=== PATIENT | female | born 1980 | race Caucasian/White ===

== ENCOUNTER 2024-02-04 19:26 | Emergency (ER) | payer SELFPAY ==
[2024-02-04 19:27] VITALS: BP 146/98; PULSE 109; RESP 15; TEMP 35.6; O2SAT 98
== END 2024-02-04 19:47 | disposition left against medical advice (07) ==
LOC: ER 19:43
PROVIDERS: Emergency Provider Emergency Medicine
DX: Z53.21 Procedure and treatment not carried out due to patient leaving prior to being seen by health care provider (principal)

== ENCOUNTER 2024-02-05 20:36 | Outpatient (REF) | payer MEDICARE, SELFPAY | END 2024-02-05 20:37 | disposition home or self-care (01) | LOC: LBN 20:36 | PROVIDERS: Visit Provider Physician Assistant Medical | DX: W55.03XA Scratched by cat, initial encounter (principal); S81.802A Unspecified open wound, left lower leg, initial encounter; A40.0 Sepsis due to streptococcus, group A | CPT/HCPCS: 87077; 87070; 87205 ==

== ENCOUNTER 2024-03-06 06:47 | Emergency (ER) | payer OTHER, SELFPAY ==
[2024-03-06 06:47] VITALS: BP 146/116; PULSE 85; RESP 14; TEMP 36.3; O2SAT 100
--- NOTE | 2024-03-06 07:15 | DI.RAD_ITS ---
Exam(s) XR FINGER LT LITTLE EXAM: XR FINGER LT LITTLE EXAM DATE/TIME: CLINICAL HISTORY: Left finger pain. TECHNIQUE: 2D digital imaging was performed of the left finger. Three views were obtained. PA/AP, oblique, and lateral views were obtained. COMPARISON: None. FINDINGS: BONES: No acute fracture is present. No bony destructive lesion is seen. JOINTS: No dislocation is present. SOFT TISSUE: Normal. IMPRESSION: No evidence of acute fracture or dislocation. DATA REPOSITORY: RADIATION DOSE DELIVERED:
[2024-03-06] MEDS: LORazepam 1 MG TAB 2 MG PO (07:38)
[2024-03-06] MEDS: ARIPiprazole 5 MG TAB 10 MG PO (07:38)
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
--- OUTSIDE RECORDS SUMMARY | 2024-03-06 08:07 | XMS_ITS | Clinical Summary ---
Author Organization [facility] Address [address] [place] [address] Care Team Providers Care Steeping Press Tender Name Role Phone Dominique Isidro MD Primary Care Provider [phone] Allergies No known active allergies Medications Medication Sig Dispensed Refills Start Date End Date Status ALPRAZolam (Xanax) 1 mg tablet ALPRAZOLAM 1 MG TABS 0 06/22/2014 Acti ve busPIRone (Buspar) 10 mg tablet Take 10 mg by mouth in the morning, at noon, and at bedtime. 0 03/14/2022 Active amphetamine-dextroam phetamine (AdderalL) 20 mg tablet every 8 (eight) hours. 0 10/20/2019 Active Banophen 50 mg capsule Take 100 mg by mouth at bedtime. 0 10/01/2021 Active multivit with calcium,iron,min (MULTIPLE VITAMIN, WOMENS ORAL) MULTIVITAMINS ORAL CAPSULE 0 10/20/2019 Active ARIPiprazole (Abilify) 10 mg tablet Take 10 mg by mouth once daily. 0 06/12/2023 Active citalopram (CeleXA) 40 mg tablet Take 40 mg by mouth once daily. 0 05/18/2023 Active clonazePAM (KlonoPIN) 1 mg tablet Take 1 mg by mouth if needed each day. 0 05/14/2023 Active ondansetron ODT (Zofran-ODT) 4 mg disintegrating tablet Take 4 mg by mouth See administration instructions. Take every 4 to 6 hours as needed 0 05/13/2023 Active traZODone (Desyrel) 100 mg tablet Take 50-200 mg by mouth at bedtime. 0 11/14/2022 Active Active Problems No known active problems Social History Tobacco Use Types Packs/Day Years Used Date Smoking Tobacco: Never Smokeless Tobacco: Current Tobacco Cessation:Ready to Q uit: Not Asked; Counseling Given: Not Answered Sex and Gender Information Value Date Recorded Sex Assigned at Female 06/01/2021 10:45 PM EST Gender Identity Not on file Sexual Orientation Not on file Job Start Date Occupation Industry Not on file Not on file Not on file Last Filed Vital Signs Vital Sign Reading Time Taken Comments Blood Pressure 117/81 07/05/2023 1:02 PM EST Pulse 91 07/05/2023 1:02 PM EST Temperature 36.9 ??C (98.4 ??F) 07/05/2023 1:02 PM ES T Respiratory Rate 18 07/05/2023 1:02 PM EST Oxygen Saturation 99% 07/05/2023 1:02 PM EST Inhaled Oxygen Concentration - - Weight 99.8 kg (220 lb) 07/05/2023 12:58 PM EST Height 157.5 cm (5' 2) 07/05/2023 12:58 PM EST Body Mass Index 40.24 07/05/2023 12:58 PM EST Plan of Treatment Health Maintenance Due Date Last Done Comments Diabetes: Hemoglobin A1C 1982 HIV Screening 1982 Lipid Panel 1982 Tobacco Cessation Counseling 1982 MMR Vaccines (1 of 1 - Stand edda series) 11/30/1983 Pneumococcal Vaccine: Pediat rics (0 to 5 Years) and At-Risk Patients (6 to 64 Years) (1 of 2 - PCV) 1988 Diabetes: Foot Exam 1992 Diabetes: Retinopathy Screening 1992 Varicella Vaccines (1 of 2 - 13+ 2-dose series) 11/30/1995 Hepatitis C Screening 2000 DTaP/Tdap/Td Vaccines (1 - Tdap) 2001 Hepatitis B Vaccines (1 of 3 - 19+ 3-dose series) 2001 Pap Smear 11/30/2003 Cervical Cancer Screening 2012 HPV/Cotest 2012 Medicare Annual Wellness (AWV) 09/26/2016 Mammogram 2022 Depression Screening 04/28/2023 COVID-19 Vaccine ( - 2023-2 5 season) 2023 Influenza Vaccine (#1) 2023 HIB Vaccines Aged Out No longer eligi ble based on patient's age to complete this topic HPV Vaccines Aged Out No longer eligi ble based on patient's age to complete this topic Hepatitis A Vaccines Aged Out No long er eligible based on patient's age to complete this topic IPV Vaccines Aged Out No longer eligi ble based on patient's age to complete this topic Meningococcal Vaccine Aged Out No mukesh abner eligible based on patient's age to complete this topic Rotavirus Vaccines Aged Out No longer eligible based on patient's age to complete this topic Care Teams Steeping Press Tender Relationship Specialty Start Date End Date Dominique Isidro MD [address] [place] [id number] PCP - General 06/01/21
--- OUTSIDE RECORDS SUMMARY | 2024-03-06 08:07 | XMS_ITS | Encounter Summary ---
Author Organization [facility] Address [phone] [place] [id number] Care Team Providers Care Information Technology Manager Name Role Phone Princess Isidro MD Primary Care Provider [phone] Encounter Details Date Type Department Care Team (Late st Contact Info) Description 02/14/2023 RPI ([employer]) System Generated VIRTUAL DEPARTMENT Unknown, Unknown, Social History Tobacco Use Types Packs/Day Years Used Date Smoking Tobacco: Never Smokeless Tobacco: Never Alcohol Use Standard Drinks/Week Comments No 0 (1 standard drink = 0.6 oz pur e alcohol) Education Answer Date Recorded Are you interested in more education? Not on terri e 09/01/2022 Are you concerned about learning? Not on file 09/01/2022 No 09/01/2022 No 09/01/2022 Digital Access Answer Date Recorded No 09/22/2022 No 09/22/2022 No 09/22/2022 Reliable internet access at home? Not on file 09/22/2022 Device with a working camera? Not on file Sex and Gender Information Value Date Recorded Sex Assigned at Not on file Gender Identity Not on file Sexual Orientation Not on file documented as of this encounter ED Notes * Unknown, Unknown, - 02/14/2023 1:36 PM EDT [facility] EMERGENCY DEPARTMENT DISPOSITION SUMMARY This is a Summary Chart only For additional details, please see [employer] ED Chart Viewer, the PulseCheck Option or Emergency Dept Scanned Forms. You may also contact Medical Records at [phone] / [phone]. [facility] DISPOSITION PATIENT: Disposition Type: Discharge, Disposition: HOME, Condition: STABLE. Patient departed from the Emergency Department. INSTRUCTION DISCHARGE: ABDOMINAL PAIN (NONSPECIFIC). FOLLOWUP: MD Isidro Ingrid, INTERNAL MEDICINE, [address] [facility] [address], , MD Salguero Leah, GASTROENTEROLOGY, [address] [id number], [phone], Follow up with Primary Care Physician Call to schedule follow up appointment, Follow up with Primary Specialist Call to schedule follow up appointment. SPECIAL: You may use Tylenol as needed for pain. Follow-up with GI for your persistent vomiting and diarrhea. PRESCRIPTION No recorded prescriptions Lerner: LULY=Brady RN, Stephanie ARGUELLO=MD Sujey, Gentry Name: Milagros Lindsey : 1980 F42 MedRec: [id number] AcctNum: [id number] CC OTHER PROVIDER: ISSA SALGUERO MD PRIMARY CARE: PRINCESS ISIDRO MD * Unknown, Unknown, - 02/14/2023 1:36 PM EDT [facility] EMERGENCY DEPARTMENT RECORD CONCISE CHART WITHOUT LAB/RAD RESULTS This is a Summary Chart only For additional details, please see [employer] ED Chart Viewer, the PulseCheck Option or Emergency Dept Scanned Forms. You may also contact Medical Records at [phone] / [phone]. [facility] HPI *GENERAL CHIEF COMPLAINT: Patient presents for evaluation of Abdominal pain. PRIMARY HISTORIAN: History provided by patient. HISTORY OF PRESENT ILLNESS: 42-year-old female with a history of depression, anxiety, PTSD, GERD and type 2 diabetes presents for evaluation of abdominal pain. She states that she has had chronic intermittent vomiting and diarrhea, approximately 10-20 times per day for many years. She has been evaluated and advised to follow-up with GI for upper endoscopy and colonoscopy and she states she has not wanted to do this. She was seen at [place] 2 weeks ago and was evaluated for similar symptoms. She states today she also developed some right lower quadrant discomfort described as stabbing and sharp and intermittent and has had abdominal distention. Denies any fever or chills. No chest pain or shortness of breath. No urinary symptoms. KNOWN ALLERGIES No Known Allergies CURRENT MEDICATIONS ALPRAZolam: Patient Dose: 1 mg Oral 4 TIMES DAILY.Entered brand: ALPRAZOLAM1 M1 -- Xanax*. PriLOSEC capsule,delayed release: Patient Dose: 20 mg Oral BID.Entered brand: [id number] MG -- Prilosec Cap. dextroamphetamine-amphetamine: Patient Dose: 20 mg Oral TID.Entered brand: [id number] MG -- Adderall*. busPIRone: Patient Dose: 10 mg Oral TID.Entered brand: BUSPIRONE HCL10 MG -- Buspar*. buPROPion HCL: Patient Dose: Unknown. citalopram: Patient Dose: Unknown. ARIPiprazole: Patient Dose: 10 mg Oral DAILY AT BEDTIME.Entered brand: [id number] M1 -- Abilify*. PAST MEDICAL HISTORY MEDICAL HISTORY: Notes: depression, anxiety, PTSD , GERD. DMII. SOCIAL HISTORY: Patient denies alcohol use, Patient denies drug use, Patient has no smoking history. Patient drinks socially, Patient currently uses drugs, abuses marijuana, Patient has no smoking history. Patient has no smoking history. VITAL SIGNS Name: Milagros Lindsey : 1980 F42 MedRec: [id number] AcctNum: [id number] [facility] VITAL SIGNS: BP: 142/78, Pulse: 88, Resp: 16, Temp: 98.2, O2 sat: 99. BP: 146/78, Pulse: 74, Resp: 20, O2 sat: 100 on (Room Air). PHYSICAL EXAM CONSTITUTIONAL: Vital signs reviewed, Patient appears alert, non-toxic, in distress. moderate. HEAD: Head exam included findings of head atraumatic, normocephalic. EYES: Pupils equally round and reactive to light, Extraocular muscles intact. NECK: Supple, No midline cervical tenderness. RESPIRATORY CHEST: Breath sounds clear bilaterally, No respiratory distress. CARDIOVASCULAR: Cardiovascular exam included findings of heart rate regular rate and rhythm. ABDOMEN FEMALE: Abdominal exam included findings of abdomen tender, to the right lower quadrant, mild intensity, abdomen is soft. UPPER EXTREMITY: Upper extremity exam included findings of inspection normal. LOWER EXTREMITY: Lower extremity exam included findings of inspection normal. NEURO: Neuro exam findings include patient oriented to person, place and time, no focal motor deficits. SKIN: Skin exam included findings of skin warm, dry. PSYCHIATRIC: Affect is:, flat. ORDERS *RN: Abdominal Pain (Lower) Protocol: Ordered by: ARELI Arzate Amanda Ordered for: Emergency, Physician, Protocol Status: Done by: ARELI Arzate Amanda - [facility] Feb 14, 2023 15:08. CBC with Differential: Ordered by: ARELI Arzate Amanda Ordered for: Emergency, Physician, Protocol Status: Done by: [facility] Feb 14, 2023 15:39. Comprehensive Metabolic Panel: Ordered by: ARELI Arzate Amanda Ordered for: Emergency, Physician, Protocol Status: Done by: [facility] FriFeb 14, 2023 15:54. IV- Insert saline lock: Ordered by: ARELI Arzate Amanda Ordered for: Emergency, Physician, Protocol Status: Done by: ARELI Arzate Amanda - [facility] Feb 14, 2023 15:08. Urinalysis > 3 YO: Ordered by: ARELI Arzate Amanda Ordered for: Emergency, Physician, Protocol Status: Done by: [facility] FriFeb 14, 2023 16:40. Lipase: Ordered by: MD Rm Robert Ordered for: MD Rm Robert Status: Done by: [facility] Feb 14, 2023 15:54. Test (Serum): Ordered by: MD Rm Robert Ordered for: MD Rm Robert [facility] Status: Done by: [facility] FriFeb 14, 2023 16:00. CT Abd Pel w/IV con (no PO): Ordered by: MD Rm Robert Ordered for: MD Rm Robert Status: Done by: [facility] FriFeb 14, 2023 17:15. MEDICATION ADMINISTRATION SUMMARY Drug Name: ketorolac injection, Dose Ordered: 15 mg, Route: Intravenous, Status: Given, Time: 17:00 02/14/2023, Drug Name: *sodium chloride 0.9 % intravenous, Dose Ordered: 1000 mL, Route: Intravenous, Status: Given, Time: 15:15 02/14/2023, Drug Name: ondansetron HCl (PF), Dose Ordered: 4 mg, Route: Intravenous, Status: Given, Time: 15:14 02/14/2023, *Additional information available in notes, Detailed record available in Medication Service section. PROVIDER NOTES PATIENT DISCUSSION / EDUCATION: Laboratory results were reviewed with patient, Radiologic study results were reviewed with patient, I have counseled patient regarding the diagnosis, treatment, and follow-up plan, Medication plan/change(s) were reviewed with patient, I have discussed and stressed the importance of follow-up with the patient/family, I discussed indications for returning to the emergency department, Patient's/family's questions were answered. MDM NOTES PHYSICIAN DENTURE LABORATORY TECHNICIAN MDM: Impression: Acute abdominal pain in the setting of chronic intermittent vomiting and diarrhea. Pain is located mainly in the right lower quadrant. Differential diagnosis includes appendicitis, colitis, terminal ileitis, constipation, mass or malignancy. Low suspicion for acute ovarian process. A CBC was normal. Electrolytes were normal. Glucose elevated 152. Comprehensive metabolic panel showed normal electrolytes and renal function. LFTs normal with exception of total bili that was slightly low at 0.2. AST was slightly elevated at 45 and ALT slightly elevated at 66. Lipase was normal. test was negative. Urinalysis was negative. Patient was sent for CT scan of the abdomen pelvis. These images were reviewed by the radiologist. I also reviewed the images. No acute intra-abdominal process was noted. Hepatic steatosis was noted. The patient was informed of lab and CT findings. She was given intravenous saline as well as ondansetron for nausea and ketorolac for pain with good relief of her symptoms. She was discharged in stable condition with instructions after her work-up was complete. She was instructed to follow-up with her PCP. She will return here if symptoms change or worsen prior to [facility] follow-up. DIAGNOSIS FINAL: PRIMARY: Abdominal pain. DISPOSITION PATIENT: Disposition Type: Discharge, Disposition: HOME, Condition: STABLE. Patient departed from the Emergency Department. INSTRUCTION DISCHARGE: ABDOMINAL PAIN (NONSPECIFIC). FOLLOWUP: MD Sanna, Princess, INTERNAL MEDICINE, [address] [facility] [address], , MD Salguero Leah, GASTROENTEROLOGY, [address] [place], [place] [id number], [phone], Follow up with Primary Care Physician Call to schedule follow up appointment, Follow up with Primary Specialist Call to schedule follow up appointment. SPECIAL: You may use Tylenol as needed for pain. Follow-up with GI for your persistent vomiting and diarrhea. PRESCRIPTION No recorded prescriptions ADMIN DIGITAL SIGNATURE: MD Rm Robert. Lerner: A=Michael RN, Trevon MAURICIO=Brady RN, Stephanie TAN=ARELI Arzate, Zuly ARGUELLO=MD Rm Robert CC OTHER PROVIDER: ISSA SALGUERO MD PRIMARY CARE: PRINCESS ISIDRO MD documented in this encounter Plan of Treatment Not on file documented as of this encounter Visit Diagnoses Not on filedocumented in this encounter Care Teams Information Technology Manager Relationship Specialty Start Date End Date Princess Isidro MD [address] [place] [id number] PCP - General 05/21/13 documented as of this encounter Additional Source Comments The information contained in this document represents components of the legal health record. It is not the complete legal health record.[facility]
--- OUTSIDE RECORDS SUMMARY | 2024-03-06 08:07 | XMS_ITS | Encounter Summary ---
Author Organization [facility] Address [phone] [facility] [place] [address] Care Team Providers Care Aviation Project Engineer Name Role Phone Dominique Isidro MD Primary Care Provider [phone] Reason for Visit * Reason Comments Foreign Body in Nose Encounter Details Date Type Department Care Team (Latest Contact Info) Description 01/09/2018 10:00 AM EDT Office Visit [facility] Otolaryngology [address] [address] Christopher Pina MD [address] [place] [address], [address] [place] [address] [email or web address] Foreign body in nose, initial encounter (Primary Dx); Nasal septal perforation Social History Tobacco Use Types Packs/Day Years Used Date Smoking Tobacco: Never Smokeless Tobacco: Never Alcohol Use Standard Drinks/Week Comments No 0 (1 standard drink = 0.6 oz pur e alcohol) Sex and Gender Information Value Date Recorded Sex Assigned at Not on file Gender Identity Not on file Sexual Orientation Not on file documented as of this encounter Progress Notes * Christopher Pina MD - 01/09/2018 10:00 AM EDT Milagros Lindsey is a 37 y.o. female [phone] Chief Complaint Patient presents with ??? Foreign Body in Nose HPI I, the Attending Physician of this record, personally reviewed and recorded the HPI Milagros presents with some nasal complaints. She states that about 10 days ago she was on vacation and had too much to drink. At that time she was snorting pixie dust candy with her friends. Since then she's had nasal discomfort and blockage with crusting. She was able to remove some bluish material from her nose. She has a hx of cocaine abuse (teenager). No fevers. Review of Systems Remainder of ROS negative unless otherwise noted. PMH Anxiety, dm PSH Cyst-pilonidal Meds Xanax, neurontin, metformin All nkda Soc No tob, no etoh Physical Exam: VS: ambulatory no respiratory distress HEENT: ??General constitutional: alert, cooperative, oriented ?? Head and face (overall appearance, scars, lesions, masses, tenderness, salivary gland abnormalities, muscle strength): normal ?? Eyes (extraocular movements, nystagmus, conjunctivae, lid motion): normal ?? Otologic examination (external ears, tympanic membranes, middle ears): normal ?? Estimated hearing (speech unit receptionist thresholds estimated by whispering): normal ?? Nose (external appearance scars, lesions, masses, nasal mucosa, septum and turbinates): Mouth and oropharynx (lips, teeth, gums, mucosal surfaces, hard and soft palates, tonsillar areas, posterior oropharyngeal surfaces, hydration): normal ? Neck (masses, overall appearance, symmetry, tracheal position, crepitus, thyroid): normal Pscyh: oriented x 3 Neuro: Cn ii-xii normal Skin: intact, without rashes PROCEDURE - nasal endoscopy was performed to inspect the interior of the nasal cavity and the middle and superior meatus, the turbinates and the spheno-ethmoid recess Verbal consent obtained Indication: FB nose Nose sprayed with topical lido and afrin 0* scope used Septum with large ant perf Bluish foreign body material and crusting bilaterally throughout and nasal cavity - debrided with forceps Pt tolerated well Assessment ??FB nose, septal perf Plan Milagros has a large nasal septal perf from a hx of cocaine abuse. No intervention needed. I debrided the majority of the FB from the nose. Rec saline rinses bid for 2 weeks then daily. F/u prn She is in agreement with the plan, and will call us with any questions and knows that they can return should they have any further issues in the interim.?? documented in this encounter Plan of Treatment Not on file documented as of this encounter Visit Diagnoses Diagnosis Foreign body in nose, initial encounter- Primary Nasal septal perforation Other diseases of nasal cavity and sinuses documented in this encounter Care Teams Aviation Project Engineer Relationship Specialty Start Date End Date Dominique Isidro MD [address] [place] [address] PCP - General 05/21/13 documented as of this encounter Additional Source Comments The information contained in this document represents components of the legal health record. It is not the complete legal health record.[facility]
--- OUTSIDE RECORDS SUMMARY | 2024-03-06 08:07 | XMS_ITS | Encounter Summary ---
Author Organization [facility] Address [phone] [facility] [place] [address] [address] Care Team Providers Care Investigator Vice Name Role Phone Dominique Isidro MD Primary Care Provider [phone] Reason for Visit * Reason Comments Nose Problem Irritation/foreign b uday Encounter Details Date Type Department Care Team (Latest Contact Info) Description 01/23/2018 11:30 AM EDT Office Visit [facility] Otolaryngology [address] [address] Christopher Pina MD [address] [place] [address], [address] [place] [address] [email or web address] Foreign body in nose, subsequent encounter (Primary Dx); Irritation of nose; Nasal septal perforation Social History Tobacco Use [...] Progress Notes * Christopher Pina MD - 01/23/2018 11:30 AM EDT Milagros Lindsey is a 37 y.o. female [phone] Chief Complaint Patient presents with ??? Nose Problem Irritation/foreign body HPI I, the Attending Physician of this record, personally reviewed and recorded the HPI Milagros returns for her nose. She reports renewed congestion and irritation. She states that last week she snorted orange pixie dust on a dare. Review of Systems Remainder of ROS negative unless otherwise noted. Physical Exam: VS: ambulatory no respiratory distress HEENT: ??General constitutional: alert, cooperative, oriented ?? Head and face (overall appearance, scars, lesions, masses, tenderness, salivary gland abnormalities, muscle strength): normal ?? Eyes (extraocular movements, nystagmus, conjunctivae, lid motion): normal ?? Otologic examination (external ears, tympanic membranes, middle ears): normal ?? Estimated hearing (speech office receptionist thresholds estimated by whispering): normal ?? Nose (external appearance scars, lesions, masses, nasal mucosa, septum and turbinates): see below Mouth and oropharynx (lips, teeth, gums, mucosal [...] scope used Septum with large ant perf [place] foreign body material and crusting bilaterally throughout and nasal cavity - debrided with forceps and suction Pt tolerated well Assessment ??FB nose, septal perf Plan Milagros has stable septal perf. I debrided the majority of the FB from the nose. Rec saline rinses bid for 2 weeks then daily. She is in agreement with the plan, and will call us with any questions and knows that they can return should they have any further issues in the interim.?? documented in this encounter Plan of Treatment Not on file documented as of this encounter Visit Diagnoses Diagnosis Foreign body in nose, subsequent encounter- Primary Irritation of nose Other diseases of nasal cavity and sinuses Nasal septal perforation Other diseases of nasal cavity and sinuses documented in this encounter Care Teams Investigator Vice Relationship Specialty Start Date End Date Dominique Isidro MD [address] [place] [address] [id number] PCP - General 05/21/13 documented as of this encounter Additional Source Comments The information contained in this document represents components of the legal health record. It is not the complete legal health record.[facility]
--- OUTSIDE RECORDS SUMMARY | 2024-03-06 08:07 | XMS_ITS | Encounter Summary ---
Author Organization [facility] Address [phone] [place] [address] Care Team Providers Care Family Coach Name Role Phone Princess Isidro MD Primary Care Provider [phone] Encounter Details Date Type Department Care Team (Late st Contact Info) Description 02/02/2023 [employer] Generated VIRTUAL DEPARTMENT Unknown, Unknown, Social [...] encounter ED Notes * Unknown, Unknown, - 02/02/2023 8:16 PM EDT [facility] EMERGENCY DEPARTMENT DISPOSITION SUMMARY This is a Summary Chart only For additional details, please see [facility] PCI ED Chart Viewer, the PulseCheck Option or Emergency Dept Scanned Forms. You may also contact Medical Records at [phone] / [phone]. [facility] MDM NOTES PHYSICIAN MDM: This is a 42-year-old old female with history of bipolar disorder, PTSD peptic ulcer disease, chronic diarrhea for many years who for the last 10 years tells me that she vomits perhaps 10-20 times daily. She also has a history of hypercalcemia likely secondary to Tums overuse, hypomagnesemia, dyslipidemia, elevated transaminase, prediabetes, chest pain from anxiety who tells me that she was told to follow-up with gastroenterology for many years now and tells me that I will never go. 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 She is here with her printer assistant Jovanni. She has rectal bleeding intermittently for quite a long time but today she had 1 episode of bright red blood rectally in the toilet bowl which was more than usual. The last time she went was 3 days ago. There is no melena. She has abdominal pain on the right side only with movement but not to palpation. No fever or chills. No urinary symptoms. She tells me she lives with her mother who is in hospice and her father of lung cancer in hospice 6 months ago. On physical exam she is heme-negative rectally. Suspect perhaps hemorrhoid causing this. Also her abdominal examination is extremely benign still perhaps musculoskeletal? We will check electrolytes but otherwise will discharge home for outpatient follow-up. She has made it very clear she will never follow-up with GI but I am requesting her to do so regardless. DISPOSITION PATIENT: Disposition Type: Discharge, Disposition: HOME. Patient departed from the Emergency Department. INSTRUCTION DISCHARGE: RECTAL BLEEDING, [id number]. FOLLOWUP: MD Sanna, Princess, INTERNAL MEDICINE, [address] [place] [id number], , MD Joiner Peter, GASTROENTEROLOGY, [address] [facility] [id number], . SPECIAL: Your labs look good today. I would love it if you would please follow-up with gastroenterology. PRESCRIPTION No recorded prescriptions ADMIN DIGITAL SIGNATURE: MD Klein Laura. Lerner: JESSA=MD Klein Laura NDUU=ARELI Solitario, [facility] Name: Milagros Lindsey : 1980 F42 MedRec: [id number] AcctNum: [id number] CC OTHER PROVIDER: PRIMARY CARE: PRINCESS ISIDRO MD * Unknown, Unknown, MD - 02/02/2023 8:16 PM EDT [facility] EMERGENCY DEPARTMENT RECORD CONCISE CHART WITHOUT LAB/RAD RESULTS This is a Summary Chart only For additional details, please see [employer] PCI ED Chart Viewer, the PulseCheck Option or Emergency Dept Scanned Forms. You may also contact Medical Records at [phone] / [phone]. [facility] HPI *GENERAL PRIMARY HISTORIAN: History provided by patient. HISTORY OF PRESENT ILLNESS: This is a 42-year-old old female with history of bipolar disorder, PTSD peptic ulcer disease, chronic diarrhea for many years who for the last 10 years tells me that she vomits perhaps 10-20 times daily. She also has a history of hypercalcemia likely secondary to Tums overuse, hypomagnesemia, dyslipidemia, elevated transaminase, prediabetes, chest pain from anxiety who tells me that she was told to follow-up with gastroenterology for many years now and tells me that I will never go. 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 She is here with her printer assistant Jovanni. She has rectal bleeding intermittently for quite a long time but today she had 1 episode of bright red blood rectally in the toilet bowl which was more than usual. The last time she went was 3 days ago. There is no melena. She has abdominal pain on the right side only with movement but not to palpation. No fever or chills. No urinary symptoms. She tells me she lives with her mother who is in hospice and her father of lung cancer in hospice 6 months ago. KNOWN ALLERGIES No Known Allergies CURRENT MEDICATIONS diphenhydrAMINE oral: Patient Dose: 50 mg Oral DAILY AT HS.Entered brand: [id number] M1 -- Benadryl*. PriLOSEC capsule,delayed release: Patient Dose: 20 mg Oral BID.Entered brand: [id number] MG -- Prilosec Cap. dextroamphetamine-amphetamine: Patient Dose: 20 mg Oral TID.Entered brand: [id number] MG -- Adderall*. busPIRone: Patient Dose: 10 mg Oral TID.Entered brand: BUSPIRONE HCL10 MG -- Buspar*. ARIPiprazole: Patient Dose: 10 mg Oral DAILY AT BEDTIME.Entered brand: TXGKCEV51 M1 -- Abilify*. buPROPion HCL: Patient Dose: Unknown. citalopram: Patient Dose: Unknown. TRAZODONE 100 MG TABLET: Patient Dose: Unknown.Entered brand: TRAZODONE 100 MG TABLET -- TAKE 1/2 - 2 TABLETS BY MOUTH AT BEDTIME. ROS NOTES: All pertinent ROS elements documented in HPI, Pertinent Name: Milagros Lindsey : 1980 F42 MedRec: [id number] AcctNum: [id number] [facility] review of systems completed and are negative except as eitherwise noted. PAST MEDICAL HISTORY MEDICAL HISTORY: Notes: depression, anxiety, PTSD , GERD. DMII. SOCIAL HISTORY: Patient denies alcohol use, Patient denies drug use, Patient has no smoking history. Patient drinks socially, Patient currently uses drugs, abuses marijuana, Patient has no smoking history. Patient has no smoking history. NOTES: The provider has reviewed and agrees with the nurse's notes regarding past medical,surgical, family and social (Including smoking) histories. Except as otherwise noted, Old chart reviewed, Medication list reviewed. VITAL SIGNS VITAL SIGNS: Pain: 0. BP: 149/103, Pulse: 102, Resp: 18, Temp: 98.1 (Oral), O2 sat: 100 on (Room Air). PHYSICAL EXAM CONSTITUTIONAL: Patient afebrile, Pulse normal, Respiratory rate normal, Blood pressure, hypertensive, Vital signs reviewed, Severely elevated BMI, Patient appears alert, non-toxic, in no acute distress. HEAD: Head exam included findings of head atraumatic, normocephalic. ENT: External ear inspection is normal. No erythema, swelling, signs of trauma or inflammation., Face appears normal. No swelling, erythema, signs of trauma or inflammation. NECK: Supple. RESPIRATORY CHEST: Breath sounds clear bilaterally, No respiratory distress, Good air exchange. CARDIOVASCULAR: Cardiovascular exam included findings of heart rate regular rate and rhythm, Heart sounds normal. ABDOMEN FEMALE: Abdominal exam included findings of abdomen nontender, abdomen is soft, Bowel sounds normal, Normal rectal exam, no hemorrhoids, no fissure, normal prostate, no occult blood, control positive, rectal tone normal. GENITOURINARY FEMALE: No CVA tenderness on exam. LOWER EXTREMITY: no edema. NEURO: [place] coma scale 15, Neuro exam findings include patient oriented to person, place and time, Speech normal, Gait normal, Memory normal. SKIN: Skin exam included findings of skin warm, dry, and normal in color. ORDERS *RN: Rectal Bleeding Protocol: Ordered by: [facility] Ordered for: Emergency, Physician, Protocol Status: Done by: ARELI Solitario [place] - [place] Feb 02, 2023 22:09. BB Tube To Hold: Ordered by: ARELI Solitario [place] Ordered for: Emergency, Physician, Protocol Status: Active. CBC with Differential: Ordered by: ARELI Solitario [place] Ordered for: Emergency, Physician, Protocol Status: Done by: [facility] Feb 02, 2023 22:47. IV- Insert Saline Lock: Ordered by: ARELI Solitario [place] Ordered for: Emergency, Physician, Protocol Status: Done by: ARELI Solitario [facility] [facility] [place] Feb 02, 2023 22:09. Partial Thromboplastin Time: Ordered by: ARELI Solitario [place] Ordered for: Emergency, Physician, Protocol Status: Done by: [facility] Feb 02, 2023 23:09. Prothrombin Time: Ordered by: ARELI Solitario [place] Ordered for: Emergency, Physician, Protocol Status: Done by: [facility] Feb 02, 2023 23:08. Stool Specimen, Collect & Hold: Ordered by: ARELI Solitario [place] Ordered for: Emergency, Physician, Protocol Status: Canceled by: ARELI Solitario [facility] [place] Feb 02, 2023 23:30. VS- Continuous Cardiac Monitoring: Ordered by: ARELI Solitario [place] Ordered for: Emergency, Physician, Protocol Status: Done by: ARELI Solitario [facility] [place] Feb 02, 2023 22:09. VS- Orthostatic Vital Signs: Ordered by: ARELI Solitario U[place] Ordered for: Emergency, Physician, Protocol Status: Done by: ARELI Solitario [facility] Feb 02, 2023 23:30. Comprehensive Metabolic Panel: Ordered by: ARELI Solitario Uchenna Ordered for: Emergency, Physician, Protocol Status: Done by: [facility] Feb 02, 2023 23:10. MDM NOTES PHYSICIAN MDM: This is a 42-year-old old female with history of bipolar disorder, PTSD peptic ulcer disease, chronic diarrhea for many years who for the last 10 years tells me that she vomits perhaps 10-20 times daily. She also has a history of hypercalcemia likely secondary to Tums overuse, hypomagnesemia, dyslipidemia, elevated transaminase, prediabetes, chest pain from anxiety who tells me that she was told to follow-up with gastroenterology for many years now and tells me that I will never go. 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 She is here with her printer assistant Jovanni. She has rectal bleeding intermittently for quite a long time but today she had 1 episode of bright red blood [facility] rectally in the toilet bowl which was more than usual. The last time she went was 3 days ago. There is no melena. She has abdominal pain on the right side only with movement but not to palpation. No fever or chills. No urinary symptoms. She tells me she lives with her mother who is in hospice and her father of lung cancer in hospice 6 months ago. On physical exam she is heme-negative rectally. Suspect perhaps hemorrhoid causing this. Also her abdominal examination is extremely benign still perhaps musculoskeletal? We will check electrolytes but otherwise will discharge home for outpatient follow-up. She has made it very clear she will never follow-up with GI but I am requesting her to do so regardless. DIAGNOSIS FINAL: PRIMARY: Rectal bleeding. DISPOSITION PATIENT: Disposition Type: Discharge, Disposition: HOME. Patient departed from the Emergency Department. INSTRUCTION DISCHARGE: RECTAL BLEEDING, [id number]. FOLLOWUP: MD Sanna, Princess, INTERNAL MEDICINE, [address] [place] [id number], , MD Rhys, Neo, GASTROENTEROLOGY, [address] [place] [address], . SPECIAL: Your labs look good today. I would love it if you would please follow-up with gastroenterology. PRESCRIPTION No recorded prescriptions ADMIN DIGITAL SIGNATURE: MD Ernie, [place]. Lerner: JESSA=MD Ernie, [place] HILL=ARELI Leyva, Lana BANKSUU=ARELI Solitario, Benjamin CC OTHER PROVIDER: PRIMARY CARE: PRINCESS ISIDRO MD documented in this encounter Plan of Treatment Not on file documented as of this encounter Procedures Procedure Name Priority Date/Time Associated Diagnosis Comments QUAL PREG,SERUM STAT 02/14/2023 3:10 PM EDT COMPREHENSIVE METABOLIC PANEL STAT 02/14/2023 3:09 PM EDT LIPASE STAT 02/14/2023 3:09 PM EDT documented in this encounter Results * Qual Preg,Serum (02/14/2023 3:10 PM EDT) Pathologist [facility] Serum Test NEGATIVE NEGATIVE [facility] Comment: If a negative result is obtained and expected, recollection after 48-72 hours is suggested. 02/14/2023 3:10 PM EDT 02/14/2023 3:19 PM EDT Gentry Rm MD LAB BLOOD ORDERABL ES [facility] [address] [place] [address] * Lipase (02/14/2023 3:09 PM EDT) Pathologist [facility] Lipase 42 12 - 53 U/L [facility] 02/14/2023 3:09 PM EDT 02/14/2023 3:19 PM EDT Unknown Unknown MD LAB BLOOD ORDERABLES [facility] [address] [place] [id number] * (ABNORMAL) Comprehensive metabolic panel (02/14/2023 3:09 PM EDT) Sodium 137 135 - 145 mEq/L [facility] Potassium 4.1 3.5 - 5.5 mEq/L [facility] Chloride 103 99 - 113 mEq/L [facility] Carbon Dioxide 28 20.0 - 31.0 mEq/L [facility] Anion Gap 6 5 - 15 mEq/L [facility] Comment:PLEASE NOTE: NEW REF ERENCE RANGE Glucose 152(H) 70 - 99 mg/dL [facility] Comment: PLEASE NOTE: NEW REFERENCE RANGE Adult, Fasting Non-diabetic Reference Range Blood Urea Nitrogen 9 9 - 23 mg/dL [facility] Creatinine 0.79 0.55 - 1.02 mg/dL [facility] Comment:PLEASE NOTE: NEW REF ERENCE RANGE GFR Estimated (Calc) 97 >90 [facility] Comment: Reference: ?? > 90 ml/min/1.73 m2 ??Normal 60 -89 ml/min/1.73 m2 ??Indeterminate, relevance is ?multifactorial 16 -59 ml/min/1.73 m2 ??Suggest Kidney Disease ?? < 15 ml/min/1.73 m2 ??Suggest Kidney Failure Calcium 9.7 8.7 - 10.4 mg/dL [facility] Comment:PLEASE NOTE: NEW REF ERENCE RANGE Total Protein 7.5 5.7 - 8.2 g/dL [facility] Albumin 4.8 3.2 - 4.8 gm/dL [facility] Comment:PLEASE NOTE: NEW REF ERENCE RANGE Globulin 2.7 2.3 - 4 g/dL [facility] Alb/Glob Ratio 1.8 [facility] Bilirubin,Total 0.2(L) 0.3 - 1.2 mg/dL [facility] Alkaline Phosphatase 81 46 - 116 U/L [facility] Comment:PLEASE NOTE: NEW REF ERENCE RANGE AST(SGOT) 45(H) 13 - 40 U/L [facility] ALT(SGPT) 66(H) 7 - 40 U/L [facility] 02/14/2023 3:09 PM EDT 02/14/2023 3:19 PM EDT Unknown Unknown MD LAB BLOOD ORDERABLES Performing Organization Address City/State/[facility] Co de Phone Number [facility] [address] [place] [address] documented in this encounter Visit Diagnoses Not on filedocumented in this encounter Care Teams Family Coach Relationship Specialty Start Date End Date Princess Isidro MD [address] [place] [id number] PCP - General 05/21/13 documented as of this encounter Additional Source Comments The information contained in this document represents components of the legal health record. It is not the complete legal health record.[facility]
--- OUTSIDE RECORDS SUMMARY | 2024-03-06 08:07 | XMS_ITS | Encounter Summary ---
Author Organization [facility] Address [address] [facility] [address] [place] [address] Care Team Providers Care Ribbon Lapper Tender Name Role Phone Dominique Isidro MD Primary Care Provider [phone] Encounter Details Date Type Department Care Team (Latest Contact Info) Description 07/05/2023 Travel Social History Tobacco Use Types Packs/Day Years Used Date Smoking Tobacco: Never Smokeless Tobacco: Current Sex and Gender Information Value Date Recorded Sex Assigned at Female 06/01/2021 10:45 PM EST Gender Identity Not on file Sexual Orientation Not on file Job Start Date Occupation Industry Not on file Not on file Not on file documented as of this encounter Plan of Treatment Not on file documented as of this encounter Visit Diagnoses Not on filedocumented in this encounter Care Teams Ribbon Lapper Tender Relationship Specialty Start Date End Date Dominique Isidro MD [address] [place] [id number] PCP - General 06/01/21 documented as of this encounter
[2024-03-06] MEDS: Ibuprofen 600 MG TAB PO (08:08)
--- OUTSIDE RECORDS SUMMARY | 2024-03-06 08:08 | XMS_ITS | Encounter Summary ---
Author Organization [facility] Address [address] [facility] [address] [place] [address] Care Team Providers Care Patient Relations Coordinator Name Role Phone Unavailable Primary Care Provider Unavailabl e Encounter Details Date Type Department Care Team (Late st Contact Info) Description 03/01/2017 9:32 AM EDT - 03/01/2017 11:03 AM EDT Emergency HxDep [facility] Other th Marshal Xie MD [address] [place] [address] [place] [address] Encounter for examination and observation for unspecified reason Discharge Disposition: Left Against Medical Advice Social History Tobacco Use Types Packs/Day Years Used Date Smoking Tobacco: Never Assessed Sex and Gender Information Value Date Recorded Sex Assigned at Female 06/01/2021 10:45 PM EST Gender Identity Not on file Sexual Orientation Not on file Job Start Date Occupation Industry Not on file Not on file Not on file documented as of this encounter Last Filed Vital Signs Vital Sign Reading Time Taken Comments Blood Pressure - - Pulse - - Temperature 36.9 ??C (98.5 ??F) 03/01/2017 9:39 AM ED T Respiratory Rate 24 03/01/2017 9:39 AM EDT Oxygen Saturation 95% 03/01/2017 9:39 AM EDT Inhaled Oxygen Concentration - - Weight 90.7 kg (199 lb 15.3 oz) 03/01/2017 9:37 AM EDT Height 157.5 cm (5' 2) 03/01/2017 9:37 AM EDT Body Mass Index 36.57 03/01/2017 9:37 AM EDT documented in this encounter Medications at Time of Discharge Medication Sig Dispensed Refills Start Date End Date ALPRAZolam (Xanax) 1 mg tablet ALPRAZOLAM 1 MG TABS 0 06/22/2014 documented as of this encounter Plan of Treatment Not on file documented as of this encounter Procedures Procedure Name Priority Date/Time Associated Diagnosis Comments HX .AUTOMATED DIFF Routine 03/01/2017 10 :40 AM EDT HX COMPREHENSIVE METABOLIC PANEL Routine 03/01/2017 10:40 AM EDT HX TROPONIN I Routine 03/01/2017 10:40 AM EDT HX BLUE TOP TO HOLD Routine 03/01/2017 1 0:40 AM EDT HX CBC W/ DIFF Routine 03/01/2017 10:40 AM EDT HX GLOMERULAR FILTRATION RATE (ESTIMATED) Routine 03/01/2017 10:40 AM EDT documented in this encounter Results * HX TROPONIN I (03/01/2017 10:40 AM EDT) CONVERSIONS-[facility] HX TROPONIN I <0.015 0.015 - 0.045 03/01/2017 11:25 AM EDT CONVERSIONS-[facility] 03/01/2017 10:4 0 AM EDT Marshal Xie MD LAB BLOOD ORDERA BLES [facility] * (ABNORMAL) HX COMPREHENSIVE METABOLIC PANEL (03/01/2017 10:40 AM EDT) [facility]VERSION[facility]- [facility] HX BUN 10.0 7.0 - 18.0 mg/dL 03/01/2017 11:25 AM EDT [facility] HX CREATININE 1.03 0.55 - 1.3 mg/dL 03/01/2017 11:25 AM EDT CONVERSIONS- [facility] HX SODIUM LVL 138.0 136.0 - 145.0 mmol/L 03/01/2017 11:25 AM EDT CONVERSIONS- [facility] HX POTASSIUM LVL 3.6 3.6 - 5.2 mmol/L 03/01/2017 11:25 AM EDT CONVERSION[facility]- [facility] HX CHLORIDE 104.0 98.0 - 110.0 mmol/L 03/01/2017 11:25 AM EDT CONVERSION[facility]- [facility] HX CO2 22.0 21.0 - 32.0 mmol/L 03/01/2017 11:25 AM EDT CONVERSION[facility]- [facility] HX ANION GAP 12.0(H) 3.0 - 11.0 03/01/2017 11:25 AM EDT CONVERSIONS- [facility] HX TOTAL PROTEIN 8.6(H) 6.0 - 8.0 Gm/dL 03/01/2017 11:25 AM EDT CONVERSIONS- [facility] HX ALBUMIN LVL 4.1 3.5 - 5.0 Gm/dL 03/01/2017 11:25 AM EDT CONVERSIONS- [facility] HX CALCIUM LVL 9.4 8.5 - 10.1 mg/dL 03/01/2017 11:25 AM EDT CONVERSIONS- [facility] HX GLUCOSE LVL 153.0(H) 65.0 - 110.0 mg/dL 03/01/2017 11:25 AM EDT CONVERSIONS- [facility] HX BILIRUBIN TOTAL 0.3 0.2 - 1.2 mg/dL 03/01/2017 11:25 AM EDT CONVERSIONS- [facility] HX ALKALINE PHOSPHATASE 68.0 45.0 - 117.0 Units/L 03/01/2017 11:25 AM EDT CONVERSIONS- [facility] HX AST 20.0 6.0 - 40.0 Units/L 03/01/2017 11:25 AM EDT CONVERSIONS- [facility] HX ALT 50.0 6.0 - 78.0 Units/L 03/01/2017 11:25 AM EDT CONVERSIONS- [facility] 03/01/2017 10:4 0 AM EDT Marshal Xie MD LAB BLOOD ORDERA BLES [facility] * (ABNORMAL) HX .AUTOMATED DIFF (03/01/2017 10:40 AM EDT) CONVERSION[facility]- [facility] HX NEUTROPHILS 74.0(H) 40.0 - 71.0 % 03/01/2017 10:56 AM EDT CONVERSIONS- [facility] HX LYMPHOCYTES 17.0(L) 22.0 - 40.0 % 03/01/2017 10:56 AM EDT CONVERSIONS- [facility] HX MONOCYTES 6.0 0.0 - 11.0 % 03/01/2017 10:56 AM EDT CONVERSIONS- [facility] HX EOSINOPHILS 2.0 0.0 - 3.0 % 03/01/2017 10:56 AM EDT CONVERSIONS- [facility] HX BASOPHILS 0.0 0.0 - 1.0 % 03/01/2017 10:56 AM EDT CONVERSIONS- [facility] HX IMMATURE GRANULOCYTES 0.0 0.0 - 2.0 % 03/01/2017 10:56 AM EDT CONVERSIONS- [facility] HX ABSOLUTE NEUTRO COUNT 12,840.0 /mm3 03/01/2017 10:56 AM EDT CONVERSIONS- [facility] HX BERNA CT MEASURED 12.84 03/01/2017 10:56 AM EDT CONVERSIONS- [facility] 03/01/2017 10:4 0 AM EDT Marshal Xie MD LAB BLOOD ORDERA BLES [facility] * (ABNORMAL) HX CBC W/ DIFF (03/01/2017 10:40 AM EDT) [facility] HX WBC 17.3(H) 3.7 - 11.2 thous/mm 3 03/01/2017 10:56 AM EDT CON[facility] HX RBC 4.51 3.6 - 5.0 Mil/mm3 03/01/2017 10:56 AM EDT [facility] HX HGB 13.4 11.8 - 15.8 Gm/dL 03/01/2017 10:56 AM EDT [facility] HX HCT 39.7 36.0 - 47.0 % 03/01/2017 10:56 AM EDT [facility] HX MCV 88.0 81.0 - 99.0 fL 03/01/2017 10:56 AM EDT [facility] HX MCH 30.0 27.0 - 31.0 pGm 03/01/2017 10:56 AM EDT CONVERSION[facility] HX MCHC 33.8 32.0 - 36.0 Gm/dL 03/01/2017 10:56 AM EDT CONVERSION[facility] HX PLATELET 285.0 150.0 - 400.0 thous/mm 3 03/01/2017 10:56 AM EDT CON[facility] HX RDW 12.8 11.5 - 14.5 % 03/01/2017 10:56 AM EDT CONVERSION[facility] HX MPV 10.3 7.4 - 11.5 fL 03/01/2017 10:56 AM EDT CONVERSION[facility] HX NRBC PERCENT 0.0 % 03/01/2017 10:56 AM EDT CON[facility] HX DIFFERENTIAL ? No 03/01/2017 10:56 AM EDT CONVERSIONS-[facility] 03/01/2017 10:4 0 AM EDT Marshal Xie MD LAB BLOOD ORDERA BLES [facility] * HX BLUE TOP TO HOLD (03/01/2017 10:40 AM EDT) CONVERSIONS-[facility] HX BLUE TOP TUBE TO HOLD DONE 03/01/2017 10:47 AM EDT CONVERSIONS-[facility] 03/01/2017 10:4 0 AM EDT Marshal Xie MD LAB BLOOD ORDERA BLES [facility] * HX GLOMERULAR FILTRATION RATE (ESTIMATED) (03/01/2017 10:40 AM EDT) CONVERSIONS- [facility] HX AFN AMER GLOMERULAR FILTRATION RATE 82.0 ml/min/1 .73m2 03/01/2017 11:25 AM EDT CONVERSIONS- [facility] HX NON-AFN AMER GLOMERULAR FILTRATION RATE 71.0 ml/min/1 .73m2 03/01/2017 11:25 AM EDT CONVERSIONS- [facility] 03/01/2017 10:4 0 AM EDT Marshal Xie MD LAB BLOOD ORDERA BLES CON[facility] documented in this encounter Visit Diagnoses Diagnosis Encounter for examination and observation for unspecified reason documented in this encounter
--- OUTSIDE RECORDS SUMMARY | 2024-03-06 08:08 | XMS_ITS ---
Author Organization [facility] Address [address] [place], [place] [id number] Care Team Providers Care Tool And Die Assembler Name Role Phone GERALDINE LOUIS Primary Care Provider [phone] RUBY ALBARADO REASON FOR VISIT Jeremy calling for update Encounters Encounter Location Date Provider Diagnosis [facility] [address] [facility] [id number] 05/30/2023 RUBY XXXBJOSE Plan Of Treatment No Information Progress Notes * Mariano HEATONKodiOB:1980 (42 yo F)Acc No.[id number]:05/30/2023 Patient:?Milagros HEATON :1980???Age:42 Y???Sex:Female Address:[address] , [place], [address] * true * Date:? Generated for Trangi kalyani/Balbir/eTransmitting on:?03/06/2024 08:07 AM EST
--- OUTSIDE RECORDS SUMMARY | 2024-03-06 08:08 | XMS_ITS ---
Author Organization [facility] Address [address] [place], [place] [id number] Care Team Providers Care City Controller Name Role Phone ME MISSYGERALDINE Primary Care Provider DEE AVILA [phone] REASON FOR VISIT sw follow up Encounters Encounter Location Date Provider Diagnosis [facility] [address] [place] [id number] 06/02/2023 DEE AVILA Plan Of Treatment No Information Progress Notes * Mariano LINDSEYKodiOB:1980 (42 yo F)Acc No.[id number]:06/02/2023 Patient:?Milagros LINDSEY :1980???Age:42 Y???Sex:Female Address:[address] [place], [address] * true * Date:? Generated for Glendy auguste/Balbir/eTransmitting on:?03/06/2024 08:07 AM EST
--- OUTSIDE RECORDS SUMMARY | 2024-03-06 08:08 | XMS_ITS | Encounter Summary ---
Author Organization [facility] Address [address] [facility] [address] [place] [address] Care Team Providers Care Reel Fed Printer Name Role Phone Dominique Isidro MD Primary Care Provider [phone] Encounter Details Date Type Department Care Team (Latest Contact Info) Description 03/16/2022 Travel Social History Tobacco Use Types Packs/Day Years Used Date Smoking Tobacco: Never Smokeless Tobacco: Never Sex and Gender Information Value Date Recorded Sex Assigned at Female 06/01/2021 10:45 PM EST Gender Identity Not on file Sexual Orientation Not on file Job Start Date Occupation Industry Not on file Not on file Not on file COVID-19 Exposure Response Date Recorded In the last 10 days, have yo u been in contact with someone who was confirmed or suspected to have Coronavirus/COVID-19? No / Unsure 03/16/2022 7:51 AM EST documented as of this encounter Plan of Treatment Not on file documented as of this encounter Visit Diagnoses Not on filedocumented in this encounter Care Teams Reel Fed Printer Relationship Specialty Start Date End Date Dominique Isidro MD [address] [place] [id number] PCP - General 06/01/21 documented as of this encounter
--- OUTSIDE RECORDS SUMMARY | 2024-03-06 08:08 | XMS_ITS | Encounter Summary ---
Author Organization [facility] Address [address] [facility] [address] [place] [address] Care Team Providers Care Alteration Workroom Supervisor Name Role Phone Dominique Isidro MD Primary Care Provider [phone] Reason for Visit * Reason Comments Nasal Congestion Sinus pressure and h eadache for 2-3 days with cough Headache Encounter Details Date Type Department Care Team (Latest Contact Info) Description 03/16/2022 7:58 AM EST - 03/16/2022 9:01 AM EST Hospital Encounter [facility] [place] [address] [place] [phone] Melisa Pinon PA [address] [place], [place] [id number] Viral upper respiratory tract infection (Primary Dx) Discharge Disposition: Home or self care Social History Tobacco Use Types Packs/Day Years Used Date Smoking Tobacco: Never Smokeless Tobacco: Never Tobacco Cessation:Counseling Given: Not Answered Sex and Gender Information [...] AM EST documented as of this encounter Last Filed Vital Signs Vital Sign Reading Time Taken Comments Blood Pressure 136/80 03/16/2022 8:14 AM EST Pulse 79 03/16/2022 8:14 AM EST Temperature 36.8 ??C (98.2 ??F) 03/16/2022 8:14 AM ES T Respiratory Rate 18 03/16/2022 8:14 AM EST Oxygen Saturation 98% 03/16/2022 8:14 AM EST Inhaled Oxygen Concentration - - Weight 90.7 kg (200 lb) 03/16/2022 8:14 AM EST Height 157.5 cm (5' 2) 03/16/2022 8:14 AM EST Body Mass Index 36.58 03/16/2022 8:14 AM EST documented in this encounter Discharge Instructions * Discharge Instructions* NATHAN Qureshi - 03/16/2022 8:59 AM EST As discussed you have a viral respitaory willness. Please push fluids and rest. If worsens return or see pcp. For severe symptoms, go to ER documented in this encounter Medications at Time of Discharge Medication Sig Dispensed Refills Start Date End Date ALPRAZolam (Xanax) 1 mg tablet ALPRAZOLAM 1 MG TABS 0 06/22/2014 amphetamine-dextroam phetamine (AdderalL) 20 mg tablet every 8 (eight) hours. 0 10/20/2019 Banophen 50 mg capsule Take 100 mg by mouth at bedtime. 0 10/01/2021 busPIRone (Buspar) 10 mg tablet Take 10 mg by mouth in the morning, at noon, and at bedtime. 0 03/14/2022 multivit with calcium,iron,min (MULTIPLE VITAMIN, WOMENS ORAL) MULTIVITAMINS ORAL CAPSULE 0 10/20/2019 benzonatate (Tessalon) 200 mg capsuleIndications:V iral upper respiratory tract infection Take 1 capsule (200 mg) by mouth if needed in the morning, at noon, and at bedtime for cough for up to 7 days. Do not crush or chew. 20 capsule 0 03/16/2022 03/23/2022 documented as of this encounter ED Notes * NATHAN Qureshi - 03/16/2022 7:52 AM EST History Chief Complaint Patient presents with ??? Nasal Congestion Sinus pressure and headache for 2-3 days with cough ??? Headache Milagros Lindsey is a 41 y.o. female who is a smoker with 4 days of nasal congestion cough. Statescough is constant and makes her vomit at times. No cp or sob. No abd pain n./v/d. Past Medical History: Diagnosis Date ??? Anxiety ??? Asthma ??? Depression Past Surgical History: Procedure Laterality Date ??? NO PAST SURGERIES No family history on file. Social History Tobacco Use ??? Smoking status: Never ??? Smokeless tobacco: Never Vaping Use ??? Vaping Use: Some days Substance Use Topics ??? Alcohol use: Not on file ??? Drug use: Not on file Review of Systems Constitutional: Negative. HENT: Positive for congestion and rhinorrhea. Eyes: Negative. Respiratory: Positive for cough. Cardiovascular: Negative. Gastrointestinal: Negative. Musculoskeletal: Negative. Skin: Negative. Neurological: Negative. Psychiatric/Behavioral: Negative. Physical Exam Vitals: 03/16/22 0814 BP: 136/80 BP Location: Left arm Patient Position: Sitting Pulse: 79 Resp: 18 Temp: 36.8 ??C (98.2 ??F) TempSrc: Oral SpO2: 98% Weight: 90.7 kg Height: 1.575 m Physical Exam HENT: Head: Normocephalic and atraumatic. Right Ear: Ear canal normal. Left Ear: Ear canal normal. Ears: Comments: Tm with fluid tyshawn Nose: Congestion present. Mouth/Throat: Comments: Posterior pharynx injection with clear drainage Eyes: Conjunctiva/sclera: Conjunctivae normal. Cardiovascular: Rate and Rhythm: Normal rate and regular rhythm. Pulmonary: Effort: Pulmonary effort is normal. Breath sounds: Normal breath sounds. Musculoskeletal: General: Normal range of motion. Cervical back: Normal range of motion. Skin: General: Skin is warm and dry. Neurological: General: No focal deficit present. Mental Status: She is alert and oriented to person, place, and time. Psychiatric: Mood and Affect: Mood normal. No orders to display Labs Reviewed POCT STREP A PCR - Normal Result Value POCT Strep A PCR Not Detected POCT SARS-COV-2/FLU A&B - Normal POCT SARS-CoV-2 Not Detected POCT Flu A Not Detected POCT Flu B Not Detected Narrative: This test was performed with the Kenny Briseida SARS-COV-2 & Influenza A/B RNA by RT PCR molecular test. Not detected results do not rule out infection with COVID- 19, Influenza A and/or Influenza B. This test is offered under Emergency use Authorization by the FDA. Procedures Procedures UC Course Diagnoses as of 03/16/22 0900 Viral upper respiratory tract infection MDM Number of Diagnoses or Management Options Diagnosis management comments: Cough and congestion, testing neg exam no focal evidence of bacterial source. Discharge Meds ED Prescriptions Medication Sig Dispense Start Date End Date Auth. Provider benzonatate (Tessalon) 200 mg capsule Take 1 capsule (200 mg) by mouth if needed in the morning, atnoon, and at bedtime for cough for up to 7 days. Do not crush or chew. 20 capsule 03/16/2022 03/23/2022 NATHAN Qureshi Home Meds Prior to Admission medications Medication Sig Start Date End Date Taking? Authorizing Provider ALPRAZolam (Xanax) 1 mg tablet ALPRAZOLAM 1 MG TABS 06/22/14 Yes Nurse [facility], RN amphetamine-dextroamphetamine (AdderalL) 20 mg tablet every 8 (eight) hours. 10/20/19 Yes Nurse [facility], RN multivit with calcium,iron,min (MULTIPLE VITAMIN, WOMENS ORAL) MULTIVITAMINS ORAL CAPSULE 10/20/19 Yes Nurse [facility], RN Banophen 50 mg capsule Take 100 mg by mouth at bedtime. 10/01/21 Nurse [facility], RN busPIRone (Buspar) 10 mg tablet Take 10 mg by mouth in the morning, at noon, and at bedtime. 03/14/22 Nurse [facility], RN Total amount of time spent on day of service doing chart review, history and physical exam,?? order/ review results of testing ordered (if any), patient counseling, documentation: 25 minutes. Patient encounter note may have been created using voice recognition software and in real time during the office visit. Please excuse any typographical errors that may not have been edited out. NATHAN Qureshi 03/16/22 1739 documented in this encounter Plan of Treatment Not on file documented as of this encounter Procedures Procedure Name Priority Date/Time Associated Diagnosis Comments POCT SARS-COV-2/FLU A&B Routine 03/16/2022 8:21 AM EST POCT STREP A PCR Routine 03/16/2022 8:05 AM EST documented in this encounter Results * POCT SARS-COV-2/FLU A&B (03/16/2022 8:21 AM EST) POCT SARS-CoV-2 Not Detected Not Detected 03/16/2022 8:[address] [facility] POCT Flu A Not Detected Not Detected 03/16/2022 8:[address] [facility] POCT Flu B Not Detected Not Detected 03/16/2022 8:[address] [facility] Swab Nasopharyngeal structure / Unknown 03/16/2022 8:21 AM EST 03/16/2022 8:[address] [facility] - 03/16/2022 8:42 AM EST This test was performed with the Kenny Briseida SARS-COV-2 & Influenza A/B RNA by RT PCR molecular test. Not detected results do not rule out infection with COVID-19, Influenza A and/or Influenza B. This test is offered under Emergency use Authorization by the FDA. Melisa EVANS LAB POINT OF CARE TEST DOCKED DEVICE UNSOLICITED RESULTS Performing Organization Address City/[facility]/ZIP Co de Phone Number [address] [address] * POCT Strep A PCR (03/16/2022 8:05 AM EST) Pathologist [facility] POCT Strep A PCR Not Detected Not Detected 03/16/2022 8:[address] [facility] Swab Structure of anterior portion of neck / Unknown 03/16/2022 8:05 AM EST 03/16/2022 8:38 AM EST Generic Provider Poct LAB POINT OF CARE TEST DOCKED DEVICE UNSOLICITED RESULTS Performing Organization Address [facility] Co de Phone Number [address] [phone] documented in this encounter Visit Diagnoses Diagnosis Viral upper respiratory tract infection- Primary Acute upper respiratory infections of unspecified site documented in this encounter Care Teams Alteration Workroom Supervisor Relationship Specialty Start Date End Date Dominique Isidro MD [address] [place] [id number] PCP - General 06/01/21 documented as of this encounter
--- OUTSIDE RECORDS SUMMARY | 2024-03-06 08:08 | XMS_ITS | Encounter Summary ---
Author Organization [facility] Address [address] [facility] [address] [place] [address] Care Team Providers Care Lathe Spotter Name Role Phone Dominique Isidro MD Primary Care Provider [phone] Reason for Visit * Reason Comments Dental Pain Pt states she has a broken tooth on bottom left of mouth. Pt states she broke the tooth a few months ago. Encounter Details Date Type Department Care Team (Latest Contact Info) Description 07/05/2023 12:55 PM EST - 07/05/2023 1:20 PM EST Hospital Encounter [facility] [address] [id number] Saritha Peter NP [address] [place] [address] Pain due to dental caries (Primary Dx) Discharge Disposition: Home or self [...] Mass Index 40.24 07/05/2023 12:58 PM EST documented in this encounter Discharge Instructions * Discharge Instructions* Saritha Peter NP - 07/05/2023 1:20 PM EST Begin amoxicillin and take as directed until finished Warm salt water oral rinses See dentist next available appointment Go to the emergency department for any issues with fever, vomiting trouble swallowing or trouble opening your mouth documented in this encounter Medications at Time of Discharge Medication Sig Dispensed Refills Start Date End Date ALPRAZolam (Xanax) 1 mg tablet ALPRAZOLAM 1 MG TABS 0 06/22/2014 amphetamine-dextroamphet amine (AdderalL) 20 mg tablet every 8 (eight) hours. 0 10/20/2019 ARIPiprazole (Abilify) 10 mg tablet Take 10 mg by mouth once daily. 0 06/12/2023 Banophen 50 mg capsule Take 100 mg by mouth at bedtime. 0 10/01/2021 busPIRone (Buspar) 10 mg tablet Take 10 mg by mouth in the morning, at noon, and at bedtime. 0 03/14/2022 citalopram (CeleXA) 40 mg tablet Take 40 mg by mouth once daily. 0 05/18/2023 clonazePAM (KlonoPIN) 1 mg tablet Take 1 mg by mouth if needed each day. 0 05/14/2023 multivit with calcium,iron,min (MULTIPLE VITAMIN, WOMENS ORAL) MULTIVITAMINS ORAL CAPSULE 0 10/20/2019 ondansetron ODT (Zofran-ODT) 4 mg disintegrating tablet Take 4 mg by mouth See administration instructions. Take every 4 to 6 hours as needed 0 05/13/2023 traZODone (Desyrel) 100 mg tablet Take 50-200 mg by mouth at bedtime. 0 11/14/2022 documented as of this encounter ED Notes * Saritha Peter NP - 07/05/2023 1:10 PM EST History Chief Complaint Patient presents with ??? Dental Pain Pt states she has a broken tooth on bottom left of mouth. Pt states she broke the tooth a few months ago. 42-year-old female who is here today with pain in the left lower rear dentition. Patient states shehad a broken tooth and patient states that she developed an abscess which broke open. Patient states that the tooth broke up about a couple months ago. Patient did not have any fever or vomiting. Patient does not have any trouble swallowing. Patient is able to open jaw fully. Patient will see her dentist on Friday to have the tooth evaluated. Patient would like antibiotics. 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 Anxiety ??? Asthma (HHS-HCC) ??? Depression Past Surgical History: Procedure Laterality Date ??? NO PAST SURGERIES No family history on file. Social History Tobacco Use ??? Smoking status: Never ??? Smokeless tobacco: Current Vaping Use ??? Vaping Use: Some days Substance Use Topics ??? Alcohol use: Not on file ??? Drug use: Not on file Review of Systems Constitutional: Negative for fatigue and fever. HENT: Positive for dental problem (Tooth #19). Negative for sore throat and trouble swallowing. Gastrointestinal: Negative for diarrhea, nausea and vomiting. Skin: Negative. Neurological: Negative for dizziness, weakness, light-headedness and headaches. Psychiatric/Behavioral: Negative. Physical Exam Vitals: 07/05/23 1258 07/05/23 1302 BP: 117/81 BP Location: Left arm Patient Position: Sitting Pulse: 91 Resp: 18 Temp: 36.9 ??C (98.4 ??F) TempSrc: Oral SpO2: 99% Weight: 99.8 kg Height: 1.575 m Physical Exam Vitals reviewed. HENT: Head: Normocephalic. Mouth/Throat: Mouth: Mucous membranes are moist. Comments: Tooth #19 with a large fracture along the posterior aspect of the tooth There is some gingival swelling along the medial aspect of the gumline There is no trismus there is no Cruzito's Eyes: Conjunctiva/sclera: Conjunctivae normal. Pupils: Pupils are equal, round, and reactive to light. Cardiovascular: Rate and Rhythm: Normal rate. Pulmonary: Effort: Pulmonary effort is normal. Musculoskeletal: General: Normal range of motion. Cervical back: Normal range of motion. Skin: General: Skin is warm and dry. Neurological: General: No focal deficit present. Mental Status: She is alert and oriented to person, place, and time. Psychiatric: Mood and Affect: Mood normal. Behavior: Behavior normal. No orders to display Labs Reviewed - No data to display Procedures Procedures UC Course Diagnoses as of 07/05/23 1338 Pain due to dental caries Medical Decision Making HPI 42-year-old female who is here today with pain in the left lower rear dentition. Patient states shehad a broken tooth and patient states that she developed an abscess which broke open. Patient states that the tooth broke up about a couple months ago. Patient did not have any fever or vomiting. Patient does not have any trouble swallowing. Patient is able to open jaw fully. Patient will see her dentist on Friday to have the tooth evaluated. Patient would like antibiotics. Vital signs reviewed and unremarkable Exam Tooth #19 with a large fracture along the posterior aspect of the tooth There is some gingival swelling along the medial aspect of the gumline There is no trismus there is no Cruzito's Dentalgia second to arch fracture and the tooth Recent infection Still pain and swelling Plan Amoxicillin Patient to see dentist on Friday07/07/2023 Pain due to dental caries: chronic illness or injury Risk Prescription drug management. Discharge Meds ED Prescriptions Medication Sig Dispense Start Date End Date Auth. Provider amoxicillin (Amoxil) 500 mg capsule Take 1 capsule (500 mg) by mouth four times daily for 10 days. 40 capsule 07/05/2023 07/15/2023 Saritha Peter NP Home Meds Prior to Admission medications Medication Sig Start Date End Date Taking? Authorizing Provider ALPRAZolam (Xanax) 1 mg tablet ALPRAZOLAM 1 MG TABS 06/22/14 [facility], RN amphetamine-dextroamphetamine (AdderalL) 20 mg tablet every 8 (eight) hours. 10/20/19 [facility], RN ARIPiprazole (Abilify) 10 mg tablet Take 10 mg by mouth once daily. 06/12/23 [facility], RN Banophen 50 mg capsule Take 100 mg by mouth at bedtime. Patient not taking: Reported on 07/05/2023 10/01/21 [facility], RN busPIRone (Buspar) 10 mg tablet Take 10 mg by mouth in the morning, at noon, and at bedtime. 03/14/22 Nurse [facility], RN citalopram (CeleXA) 40 mg tablet Take 40 mg by mouth once daily. 05/18/23 Nurse [facility], RN clonazePAM (KlonoPIN) 1 mg tablet Take 1 mg by mouth if needed each day. 05/14/23 Nurse [facility], RN multivit with calcium,iron,min (MULTIPLE VITAMIN, WOMENS ORAL) MULTIVITAMINS ORAL CAPSULE 10/20/19 Nurse [facility], RN ondansetron ODT (Zofran-ODT) 4 mg disintegrating tablet Take 4 mg by mouth See administration instructions. Take every 4 to 6 hours as needed 05/13/23 Nurse [facility], RN traZODone (Desyrel) 100 mg tablet Take 50-200 mg by mouth at bedtime. 11/14/22 Nurse [facility],RN Total amount of time spent on day of service doing chart review, history and physical exam,?? order/ review results of testing ordered (if any), patient counseling, documentation: 25 minutes. Patient encounter note may have been created using voice recognition software and in real time during the office visit. Please excuse any typographical errors that may not have been edited out. Saritha Peter NP 07/05/23 1338 documented in this encounter Plan of Treatment Not on file documented as of this encounter Visit Diagnoses Diagnosis Pain due to dental caries- Primary documented in this encounter Care Teams Lathe Spotter Relationship Specialty Start Date End Date Dominique Isidro MD [address] [place] [id number] PCP - General 06/01/21 documented as of this encounter
--- OUTSIDE RECORDS SUMMARY | 2024-03-06 08:08 | XMS_ITS | Patient Health Record ---
Author Organization [facility] Address [address], [place] [id number] Care Team Providers Care Clinical Documentation Specialist Name Role Phone GERALDINE LOUIS Primary Care Provider DEE AVILA Unavailable [phone] LIDIARUBY RIVERS Unavailable [phone] Allergies No Known Allergies Reason For Referral No Information Medications Medication SIG (Take, Route, Frequency, Duration) Notes Start Date End Date Status Hydrocortisone 2.5 % APPLY 2-3 TIMES DAILY TO AFFECTED AREA(S). 3 TIMES DAILY EXTERNAL 30 DAY(S) for 30 Active Vitamin D3 50 MCG (1999 [place]) TAKE 1 CAPSULE DAILY Oral 06/27/2014 Not-Taking Sucralfate 1 GM 1 tablet on an empty stomach Orally four times daily for four weeks, than twice daily for maintenance for 30 day(s) 11/01/2020 Not-Taking Omeprazole 40 MG 1 CAPSULE 30 MINUTES BEFORE MORNING MEAL TWICE A DAY ORALLY 30 DAY(S) for 90 Not-Taking busPIRone HCl 10 MG 1 tablet Orally Three times daily [facility] discharge: 03/26/21. Active ALPRAZolam 1 MG 1 tab QID Oral Active Adderall 20 MG 1 tablet Orally Three times a day [facility] discharge: 03/26/21. Active Immunizations Vaccine Route Administration Date Status Comme nts DTP Unknown 01/14/1983 Administered 14 Jan 1983 DTP Unknown 02/28/1984 Administered 28 Feb 1984 DTP Unknown 12/14/1984 Administered 14 Dec 1984 DTP Unknown 01/02/1988 Administered 02 Jan 1988 Hep B, unspecified formulation (CPT 57138 Inactive) Unknown 11/20/1995 Administered 20 Nov 1995 Hep B, unspecified formulation (CPT 66745 Inactive) Unknown 12/12/1995 Administered 12 Dec 1995 Hep B, unspecified formulation (CPT 89645 Inactive) Unknown 08/03/1996 Administered 03 Aug 1996 HPV IM Intramuscular 03/30/2008 Administered 30 Mar 2008 HPV IM Intramuscular 06/29/2008 Administered 29 Jun 2008 MMR Unknown 07/09/1984 Administered 09 Jul 1984 MMR Unknown 11/10/1995 Administered 10 Nov 1995 OPV Unknown 01/14/1983 Administered 14 Jan 1983 OPV Unknown 02/27/1983 Administered 27 Feb 1983 OPV Unknown 05/15/1983 Administered 15 May 1983 OPV Unknown 01/02/1988 Administered 02 Jan 1988 PPD Unknown 05/05/2000 Administered 05 May 2000 Td (adult), absorbed Unknown 09/10/1999 Administered 10 Sep 1999 Tdap IM Intramuscular 04/01/2012 Administered 05Dec2 012 04:22PM Elin Test, tuberculin skin test Unknown 08/27/1983 Administered 27 Aug 1983 Elin Test, tuberculin skin test Unknown 06/26/1992 Administered Jun 1992 Varicella Unknown 05/05/2000 Administered 05 May 2000 Problems Problem Type SNOMED Code ICD Code Onset Dates Problem Status W/U Status Risk Notes Problem 867108919 Irritable bowel syndrome with diarrhea (K58.0) Active confirmed Problem 59824214 Eczema, unspecified type (L30.9) Active confirmed Problem 738662180 Moderate persistent asthma without complication (J45.40) Active confirmed Problem 893366475 Manic behavior (F30.10) Active confirmed Problem Type 2 diabetes mellitus (53745892) Type 2 diabetes mellitus (E11.9) Active confirmed Problem Uncomplicated moderate persistent asthma (008063528) Asthma, moderate persistent, poorly-controlle d (J45.40) Active confirmed Problem 918569090 Hair loss (L65.9) Active confirmed Problem 505899001 Morbid obesity (E66.01) Active confirmed Problem Body dysmorphic disorder (72951206) Body dysmorphic disorder (F45.22) Active confirmed Problem Low back pain (116922413) Low back pain (M54.5) Active confirmed Problem Posttraumatic stress disorder (07717819) PTSD (post-traumatic stress disorder) (F43.10) Active confirmed Problem Menstrual disorder (229716622) Irregular menses (N92.6) Active confirmed Problem Bipolar disorder (09879253) Bipolar disease, chronic (F31.9) Active confirmed Problem Esophageal reflux (509439133) Esophageal reflux (K21.9) Active confirmed Problem Obsessive compulsive disorder (967544660) Obsessive compulsive disorder (F42) Active confirmed Problem Anxiety disorder (250122755) Anxiety disorder (F41.9) Active confirmed Problem Genital warts (436219658) Genital warts (A63.0) Active confirmed Vital Signs Heart Rate 114 /min 05/30/2023 Blood pressure diastolic 80 mm Hg 05/30/2023 Oximetry 99 % 05/30/2023 Blood pressure systolic 118 mm Hg 05/30/2023 Weight 207.8 lbs 05/30/2023 Encounters Encounter Location Date Provider Diagnosis [facility] [address], [place] [id number] 05/12/2023 GERALDINE LOUIS [facility] [address], [place] [id number] 05/12/2023 GERALDINE GARG [facility] [address], [place] [id number] 05/30/2023 RUBY XXXBURBAGE [facility] [address], [place] [id number] 06/02/2023 DEE AVILA [facility] [address], [place] [id number] 05/30/2023 RUBY [facility]BURBAGE Tooth pain K08.89 and Manic behavior F30.10 Assessments Encounter Date Diagnosis (ICD Code) Assessment Notes Treatment Notes Treatment Clinical Notes 05/30/2023 Tooth pain (ICD-10 - K08.89) No evidence of dental infection or abscess. There is a cracked molar with no surrounding erythema, exudate, edema. No indication for continuing patient's dose of antibiotics at this time 05/30/2023 Manic behavior (ICD-10 - F30.10) As patient was unable to stay in a closed exam room, making threats to staff, thought to be a risk to those around her, social work was consulted. Decision was made to initiate Section 12. Police were called for assistance detaining patient and bringing her to emergency room for further evaluation of her current psychiatric state. 05/30/2023 Other The duration of this visit was 90 minutes which included chart review, visit itself, consulting PCP and social work, discussing with police and EMS, review of patient actions while IRONWORKER MACHINE OPERATOR was consulting PCP, counseling and documentation of medical record. Plan Of Treatment No Information Insurance Providers Payer Name Payer Address Payer Phone Subscriber Number Group Number Insured Name Patient Relationship to Insured Coverage Start Date Coverage End Date Medicare [address] [place] [id number] [phone] [id number] Milagros Moreno i Self - patient is the insured 6 [employer] [address] [place], [place] [id number] Milagros Moreno i Self - patient is the insured 5 8 Medicare [address] [place] [id number] Milagros Moreno i Self - patient is the insured 6 8 [place] [employer] [address] [place] [address] [id number] Milagros Moreno i Self - patient is the insured 9 [address] [employer] [address] [place] [phone] [id number] Milagros Moreno i Self - patient is the insured 7 [employer] [address] [place] [phone] [facility] Milagros Moreno i Self - patient is the insured [facility] [address] [place] [phone] [id number] Milagros Moreno i Self - patient is the insured 3 3 Medical (General) History Medical History History ICD Code 03/18 echocardiogram showed normal systolic function. EF 60%. No diastolic dysfunction and no significant valvular abnormalities. Surgical History Surgery Date(Month/Year) Complete Colonoscopy Diagnostic Esophagogastroduodenoscopy:re peat in 5 yrs 10/05/12
--- OUTSIDE RECORDS SUMMARY | 2024-03-06 08:08 | XMS_ITS | Encounter Summary ---
Author Organization [facility] Address [address] [facility] [address] [place] [address] Care Team Providers Care Senior Supply Chain Analyst Name Role Phone Dominique Isidro MD Primary Care Provider [phone] Encounter Details Date Type Department Care Team (Latest Contact Info) Description 08/04/2022 Travel Social History Tobacco Use Types Packs/Day [...] suspected to have Coronavirus/COVID-19? No / Unsure 08/04/2022 10:24 PM EDT documented as of this encounter Plan of Treatment Not on file documented as of this encounter Visit Diagnoses Not on filedocumented in this encounter Care Teams Senior Supply Chain Analyst Relationship Specialty Start Date End Date Dominique Isidro MD [address] [place] [id number] PCP - General 06/01/21 documented as of this encounter
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
--- OUTSIDE RECORDS SUMMARY | 2024-03-06 08:08 | XMS_ITS | Encounter Summary ---
Author Organization [facility] Address [address] [facility] [address] [place] [address] Care Team Providers Care Squeegee Tender Name Role Phone Dominique Isidro MD Primary Care Provider [phone] Reason for Visit * Reason Comments Vomiting Vomiting for a year every day, worse over the last week. Denies pain at present. Hx of GERD and has had multiple scopes. Pt reports she coughed bright red blood over the last week. Also states bloody diarrhea with dizziness. Encounter Details Date Type Department Care Team (Latest Contact Info) Description 08/05/2022 1:13 AM EDT - 08/05/2022 11:05 AM EDT Emergency [facility] [address] [phone] Christiana Guevara MD [address] [place] [address] [phone] Anxiety (Primary Dx); Nausea and vomiting, unspecified vomiting type; Generalized abdominal pain; Gastrointestinal hemorrhage, unspecified gastrointestinal hemorrhage type; Diarrhea, unspecified type; Hypokalemia; Marijuana use Discharge Disposition: Home or self care Social [...] PM EDT documented as of this encounter Last Filed Vital Signs Vital Sign Reading Time Taken Comments Blood Pressure 116/75 08/05/2022 10:49 AM EDT Pulse 81 08/05/2022 10:49 AM EDT Temperature 36.4 ??C (97.5 ??F) 08/05/2022 10:49 AM E DT Respiratory Rate 19 08/05/2022 10:49 AM EDT Oxygen Saturation 96% 08/05/2022 10:49 AM EDT Inhaled Oxygen Concentration - - Weight 99.8 kg (220 lb) 08/04/2022 10:25 PM EDT Height 157.5 cm (5' 2) 08/04/2022 10:25 PM EDT Body Mass Index 40.24 08/04/2022 10:25 PM EDT documented in this encounter Discharge Instructions * Discharge Instructions* Christiana Guevara MD - 08/05/2022 10:40 AM EDT You declined further evaluation with nasogastric tube evaluation for GI bleeding with risk of missed diagnosis reviewed. Please follow up with GI this week for reevaluation as well as your PCP. Return to ED immediately for return of active bleeding or abdominal pain. documented in this encounter Medications at Time of Discharge Medication Sig Dispensed Refills Start Date End Date ALPRAZolam (Xanax) 1 mg tablet ALPRAZOLAM 1 MG TABS 0 06/22/2014 amphetamine-dextroamph etamine (AdderalL) 20 mg tablet every 8 (eight) hours. 0 10/20/2019 Banophen 50 mg capsule Take 100 mg by mouth at bedtime. 0 10/01/2021 busPIRone (Buspar) 10 mg tablet Take 10 mg by mouth in the morning, at noon, and at bedtime. 0 03/14/2022 multivit with calcium,iron,min (MULTIPLE VITAMIN, WOMENS ORAL) MULTIVITAMINS ORAL CAPSULE 0 10/20/2019 ondansetron ODT (Zofran-ODT) 4 mg disintegrating tabletIndications:Naus ea and vomiting, unspecified vomiting type Take 1 tablet (4 mg) by mouth every 8 (eight) hours if needed for nausea or vomiting for up to 7 days. 12 tablet 0 08/05/2022 08/12/2022 documented as of this encounter ED Notes * Restricted notes were excluded * Nydia Chen RN - 08/05/2022 5:13 AM EDT Patient has repeatedly express frustration about not being seen by provider, patient has been playing music at a high volume on her personal phone, aggressively using profanity towards staff at nursing desk. Security notified of aggressive behavior, patient stated to security staff member that there isn't a problem here. Will notify if behavior escalates. Nydia Chen RN 08/05/22 0517 * Nydia Chen RN - 08/05/2022 3:46 AM EDT Patient pressed call light, when RN went in to assess patient the patient expressed frustration at long wait time. RN reassured patient that she would be seen by a provider as soon as they are able, patient states that she doesn't want to leave but wants xanax and feels so angry she would stab someone. Nydia Chen RN 08/05/22 0349 * Nydia Chen RN - 08/05/2022 1:32 AM EDT Patient presents to ED with multiple chronic complaints including N/V Nydia Chen RN 08/05/22 0132 * Christiana Guevara MD - 08/04/2022 10:20 PM EDT HPI Chief Complaint Patient presents with ??? Vomiting Vomiting for a year every day, worse over the last week. Denies pain at present. Hx of GERD and hashad multiple scopes. Pt reports she coughed bright red blood over the last week. Also states bloodydiarrhea with dizziness. Patient reports vomiting for year and over the past week vomiting and coughing up blood as well as defecating blood. She reports intermittent sharp severe abdominal pain, none at present. Chronic lower back pain. No difficulty urinating. Last menses normal 1.5 weeks ago. No fevers or chills. No history of abdominal surgeries. She reports history of diabetes and asthma. She is very upset about thewait and not getting her home medications. 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 Diaz Coma Scale Score: 15 Patient History Past Medical History: Diagnosis Date ??? Anxiety ??? Asthma ??? Depression Diabetes Past Surgical History: Procedure Laterality Date ??? NO PAST SURGERIES No family history on file. Social History Tobacco Use ??? Smoking status: Never ??? Smokeless tobacco: Never Vaping Use ??? Vaping status: Some Days Substance Use Topics ??? Alcohol use: None ??? Drug use: Marijuana Review of Systems Review of Systems Constitutional: Negative for chills and fever. HENT: Negative for congestion. Respiratory: Negative for shortness of breath. Cardiovascular: Negative for chest pain. Gastrointestinal: Positive for abdominal pain, blood in stool, nausea and vomiting. Negative for diarrhea. Genitourinary: Negative for difficulty urinating, dysuria, vaginal bleeding and vaginal discharge. Musculoskeletal: Positive for back pain and neck pain. Skin: Negative for rash. Neurological: Negative for dizziness and syncope. Physical Exam ED Triage Vitals Temp Pulse Resp BP 08/04/223 08/04/22223208/04/22223208/04/222232 36.6 ??C (97.9 ??F) 83 16 (!) 143/90 SpO2 Temp Source Heart Rate Source Patient Position 08/04/22223208/04/22223208/05/229 08/05/228 97 % Oral Monitor Sitting BP Location FiO2 (%) 08/05/22 0009 -- Right arm Physical Exam Vitals and nursing note reviewed. Constitutional: General: She is not in acute distress. Appearance: Normal appearance. She is well-developed. She is obese. She is not ill-appearing. HENT: Head: Normocephalic and atraumatic. Nose: Nose normal. No congestion. Mouth/Throat: Mouth: Mucous membranes are dry. Pharynx: Oropharynx is clear. No oropharyngeal exudate or posterior oropharyngeal erythema. Eyes: Extraocular Movements: Extraocular movements intact. Conjunctiva/sclera: Conjunctivae normal. Pupils: Pupils are equal, round, and reactive to light. Cardiovascular: Rate and Rhythm: Normal rate and regular rhythm. Pulses: Normal pulses. Heart sounds: Normal heart sounds. No murmur heard. Pulmonary: Effort: Pulmonary effort is normal. No respiratory distress. Breath sounds: Normal breath sounds. Abdominal: Palpations: Abdomen is soft. Tenderness: There is no abdominal tenderness. There is no guarding or rebound. Genitourinary: Comments: Pt refuses rectal exam. Explained risk of missed diagnosis On reevaluation, patient would like to proceed with exam, no masses, nl bleeding, no stool, guaic negative. Musculoskeletal: General: No swelling. Normal range of motion. Cervical back: Normal range of motion and neck supple. No tenderness. Right lower leg: No edema. Left lower leg: No edema. Lymphadenopathy: Cervical: No cervical adenopathy. Skin: General: Skin is warm and dry. Capillary Refill: Capillary refill takes less than 2 seconds. Neurological: General: No focal deficit present. Mental Status: She is alert. Psychiatric: Mood and Affect: Mood normal. Comments: Upset, anxious, aggitated US ABDOMEN COMPLETE Final Result 1. Hepatic steatosis. No focal liver lesion. 2. Otherwise unremarkable abdominal ultrasound. Zack Lei MD 08/05/2022 9:19 AM XR CHEST 2 VIEWS Final Result Minor atelectasis or infiltrate at the right lung base Chaz Lopes 08/05/2022 6:52 AM Labs Reviewed COMPREHENSIVE METABOLIC PANEL - Abnormal Result Value Sodium 136 Potassium 3.2 (*) Chloride 100 CO2 (Bicarbonate) 32 Anion Gap 4 BUN 8 Creatinine 0.95 eGFRcr 78 Glucose 161 (*) Fasting? No Calcium 9.4 AST 65 (*) ALT 132 (*) Alkaline phosphatase 87 Protein, total 8.0 Albumin 4.2 Bilirubin, total 0.3 CBC WITH DIFFERENTIAL - Abnormal WBC 12.5 (*) RBC 4.49 Hemoglobin 13.3 Hematocrit 39.7 MCV 88.4 MCH 29.6 MCHC 33.5 RDW-CV 12.7 RDW-SD 41.1 Platelets 308 MPV 10.3 Neutrophil % 59.2 Lymphocyte % 30.6 Monocytes % 6.7 Eosinophils % 2.5 Basophils % 0.7 Immature Granulocytes % 0.3 NRBC % 0.0 Neutrophils Absolute 7.41 Lymphocytes Absolute 3.84 Monocytes Absolute 0.84 (*) Eosinophils Absolute 0.31 Basophils Absolute 0.09 Immature Granulocytes Absolute 0.04 NRBC Absolute 0.00 LIPASE - Normal Lipase 31 Narrative: Reference Range updated as 04/16/2022 D-DIMER, QUANTITATIVE - Normal D-DIMER 420.00 CBC - Normal WBC 10.5 RBC 4.06 Hemoglobin 12.2 Hematocrit 35.6 MCV 87.7 MCH 30.0 MCHC 34.3 RDW-SD 40.5 RDW-CV 12.6 Platelets 255 MPV 10.3 NRBC % 0.0 NRBC Absolute 0.00 Narrative: Differential not performed - see previous differential results. Per lab policy one differential per24 hours. HCG, SERUM, QUALITATIVE hCG Qualitative Serum Negative CBC W/DIFF Narrative: The following orders were created for panel order CBC and differential. Procedure Abnormality Status --------- ------ CBC w/ Differential[[id number]] Abnormal Final result Please view results for these tests on the individual orders. CBC W/DIFF Narrative: The following orders were created for panel order CBC and differential. Procedure Abnormality Status --------- ------ CBC[[id number]] Normal Final result Please view results for these tests on the individual orders. ED Course & MDM ED Course as of 08/05/22 1511 FriAug 05, 2022 0740 Reevaluated. 0744 XR CHEST 2 VIEWS Clear lungs, no focal infiltrate or wedge opacities. Independent interpretation. Radiology read reviewed 0800 Potassium(!): 3.2 Low K, replaced 1036 Reevaluated Diagnoses as of 08/05/22 1511 Nausea and vomiting, unspecified vomiting type Generalized abdominal pain Gastrointestinal hemorrhage, unspecified gastrointestinal hemorrhage type - complaint of, no findings Diarrhea, unspecified type Hypokalemia Marijuana use Anxiety Medical Decision Making Patient with multiple complaints, centered around vomiting with reporting bloody vomit and coughingas well as bloody stools. Check hemoglobin and hematocrit, white blood count, platelets, screening comprehensive, lipase. For hemoptysis screening D-dimer. No other risk factors for pulmonary embolism. Check ultrasound to evaluate for cholelithiasis. History of marijuana use suspect cyclic vomitingsyndrome related to. Anxiety likely contributing factor. For normal saline IV fluid, Ativan for anxiety as well as nausea vomiting. Protonix for relief of symptoms. Patient improvement after antianxiety. Discussed NG tube placement to evaluate for upper GI bleed. No vomitus in ED. Patient declines this evaluation with risk of missed diagnosis explained. On repeat exam soft benign abdomen, no tenderness palpation no guarding or rebound. Patient reports nausea resolved and feels well for home. Hemoglobin and hematocrit normal and stable taking to considerationfluids. Rectal exam reassuring with no active bleeding. Reviewed ED evaluation and findings. Recommended close follow-up with PCP with GI. Diarrhea, unspecified type: acute illness or injury Gastrointestinal hemorrhage, unspecified gastrointestinal hemorrhage type: acute illness or injury Generalized abdominal pain: acute illness or injury Hypokalemia: acute illness or injury Marijuana use: acute illness or injury Nausea and vomiting, unspecified vomiting type: acute illness or injury Amount and/or Complexity of Data Reviewed Labs: ordered. Radiology: ordered. Decision-making details documented in ED Course. Risk Prescription drug management. Christiana Guevara MD 08/05/22 1511 Christiana Guevara MD 08/05/22 1512 documented in this encounter Plan of Treatment Not on file documented as of this encounter Procedures Procedure Name Priority Date/Time Associated Diagnosis Comments US ABDOMEN COMPLETE STAT 08/05/2022 9 :11 AM EDT CBC STAT 08/05/2022 6:38 AM EDT CBC W/DIFF STAT 08/05/2022 6:38 AM EDT XR CHEST 2 VIEWS STAT 08/05/2022 6:25 AM EDT D-DIMER, QUANTITATIVE STAT 08/05/2022 6:25 AM EDT CBC WITH DIFFERENTIAL STAT 08/05/2022 1:25 AM EDT CBC W/DIFF STAT 08/05/2022 1:25 AM EDT HCG, SERUM, QUALITATIVE STAT 08/05/2022 1:25 AM EDT LIPASE STAT 08/05/2022 1:25 AM EDT COMPREHENSIVE METABOLIC PANEL STAT 08/05/2022 1:25 AM EDT documented in this encounter Results * US ABDOMEN COMPLETE (08/05/2022 9:11 AM EDT) Anatomical Region Laterality Modality Abdomen Ultrasound 08/05/2022 9:17 AM EDT Impressions 08/05/2022 9:19 AM EDT 1. ??Hepatic steatosis. No focal liver lesion. 2. ??Otherwise unremarkable abdominal ultrasound. Zack Lei MD 08/05/2022 9:19 AM Narrative 08/05/2022 9:19 AM EDT Procedure: US ABDOMEN COMPLETE ??08/05/2022 8:42 AM Indications: abdominal pain Comparison: None Technique: Ultrasound evaluation of the abdomen was performed utilizing rosenberg scale and color Doppler techniques, including volumetric sweeps. Findings: LIVER: Diffusely increased echogenicity. No solid hepatic mass. No intrahepatic duct dilatation. Portal vein is normal in caliber demonstrating normal antegrade flow. GALLBLADDER/BILIARY TREE: Normal gallbladder without cholelithiasis, wall thickening, or pericholecystic fluid. The common bile duct is normal in caliber, measuring ??0.5 cm in diameter. Negative sonographic Chu sign. KIDNEYS: -Right Kidney: The right kidney measures 12.6 cm. Normal echogenicity. No hydronephrosis, renal calculi, or solid mass. -Left Kidney: The left kidney measures 12.5 cm. Normal echogenicity. No hydronephrosis, renal calculi, or solid mass. SPLEEN: 10.5 cm. ?? PANCREAS: The visible portions of the mid pancreas are unremarkable. ?? ASCITES: No free fluid in the abdomen. IVC/AORTA: The aorta is normal in caliber. The visible portions of the inferior vena cava are patent. Procedure Note Zack Lei MD - 08/05/2022 Procedure: US ABDOMEN COMPLETE 08/05/2022 8:42 AM Indications: abdominal pain Comparison: None Technique: Ultrasound evaluation of the abdomen was performed utilizinggray scale and color Doppler techniques, including volumetric sweeps. Findings: LIVER: Diffusely increased echogenicity. No solid hepatic mass. Nointrahepatic duct dilatation. Portal vein is normal in caliberdemonstrating normal antegrade flow. GALLBLADDER/BILIARY TREE: Normal gallbladder without cholelithiasis, wallthickening, or pericholecystic fluid. The common bile duct is normal incaliber, measuring 0.5 cm in diameter. Negative sonographic Murphysign. KIDNEYS: -Right Kidney: The right kidney measures 12.6 cm. Normal echogenicity. Nohydronephrosis, renal calculi, or solid mass. -Left Kidney: The left kidney measures 12.5 cm. Normal echogenicity. Nohydronephrosis, renal calculi, or solid mass. SPLEEN: 10.5 cm. PANCREAS: The visible portions of the mid pancreas are unremarkable. ASCITES: No free fluid in the abdomen. IVC/AORTA: The aorta is normal in caliber. The visible portions of theinferior vena cava are patent. IMPRESSION: 1. Hepatic steatosis. No focal liver lesion. 2. Otherwise unremarkable abdominal ultrasound. Zack Lei MD 08/05/2022 9:19 AM Christiana Guevara MD IMG US PROCEDURES * CBC (08/05/2022 6:38 AM EDT) WBC 10.5 4.0 - 11.0 K/uL 08/05/2022 6:51 AM T [facility] RBC 4.06 3.70 - 5.20 M/uL 08/05/2022 6:51 AM T [facility] Hemoglobin 12.2 11.0 - 16.0 g/dL 08/05/2022 6:51 AM T [facility] Hematocrit 35.6 32.0 - 47.0 % 08/05/2022 6:51 AM T [facility] MCV 87.7 80.0 - 100.0 fL 08/05/2022 6:51 AM T [facility] MCH 30.0 26.0 - 34.0 pg 08/05/2022 6:51 AM T [facility] MCHC 34.3 31.0 - 37.0 g/dL 08/05/2022 6:51 AM T [facility] RDW-SD 40.5 35.0 - 51.0 fL 08/05/2022 6:51 AM EDT [facility] RDW-CV 12.6 11.5 - 14.5 % 08/05/2022 6:51 AM EDT [facility] Platelets 255 150 - 400 K/uL 08/05/2022 6:51 AM EDT [facility] MPV 10.3 9.1 - 12.4 fL 08/05/2022 6:51 AM EDT [facility] NRBC % 0.0 0.0 - 0.0 % 08/05/2022 6:51 AM EDT [facility] NRBC Absolute 0.00 0.00 - 2.00 K/uL 08/05/2022 6:51 AM EDT [facility] Blood Venous blood specimen / Unknown Venipuncture / Unknown 08/05/2022 6:38 AM EDT 08/05/2022 6:41 AM EDT Narrative [facility] - 08/05/2022 6:51 AM EDT Differential not performed - see previous differential results. ??Per lab policy one differential per 24 hours. Christiana Guevara MD LAB BLOOD ORDERABLES Performing Organization Address City/State/[facility] Co de Phone Number [facility] [address] [place] [address], * XR CHEST 2 VIEWS (08/05/2022 6:25 AM EDT) Anatomical Region Laterality Modality Chest Computed Radiogr aphy 08/05/2022 6:49 AM EDT Impressions 08/05/2022 6:52 AM EDT Minor atelectasis or infiltrate at the right lung base Chaz Lopes 08/05/2022 6:52 AM Narrative 08/05/2022 6:52 AM EDT Procedure: ??XR CHEST 2 VIEWS 08/05/2022 6:24 AM Indication: ??Hemoptysis Comparison: ??09/28/2012 TECHNIQUE: PA and lateral views of the chest were obtained. FINDINGS: The heart size and mediastinal contours are normal. ??There is no vascular congestion or pleural effusion. Compared to the prior study, there is subtle increased opacity at the right lung base without confluent consolidation. ??The right hemidiaphragm is minimally elevated on the frontal view. ??No mass is identified. The skeletal structures are unremarkable. Procedure Note Chaz Lopes MD - 08/05/2022 Procedure: XR CHEST 2 VIEWS 08/05/2022 6:24 AM Indication: Hemoptysis Comparison: 09/28/2012 TECHNIQUE: PA and lateral views of the chest were obtained. FINDINGS: The heart size and mediastinal contours are normal. There is novascular congestion or pleural effusion. Compared to the prior study, there is subtle increased opacity at theright lung base without confluent consolidation. The right hemidiaphragmis minimally elevated on the frontal view. No mass is identified. The skeletal structures are unremarkable. IMPRESSION: Minor atelectasis or infiltrate at the right lung base Chaz Lopes 08/05/2022 6:52 AM Christiana Guevara MD IMG XR PROCEDURES * D-dimer, quantitative (08/05/2022 6:25 AM EDT) D-DIMER 420.00 0.00 - 500.00 ng/ml FEU 08/05/2022 7:04 AM EDT [facility] Comment: The new cut-off for ruling out PE/DVT in low-risk patients is 500 ng/mL FEU. Age-adjustment for individuals over 50 years old is age in years X 10, so ? for a 57 year old person, the cut-off would be 570 ? for a 72 year old person, the cut-off would be 720 Above age 75, it is less clear what the appropriate cut-off should be, as fewer patients have been studied, but some studies propose using the same age in years X 10 adjustment. 1. Qi GARRISON, Sriram RA, Ashley K, et al. Issues surrounding age-adjusted D- Dimer cut-offs that practicing physicians need to know when evaluating patients with suspected pulmonary embolism. ??Davina Timber Setter Med 2017;166:361-3. 2. Rigo Turner, Yoni Valenzuela, Jiminez S, et al. ??Effect of a diagnostic strategy using an elevated and age-adjusted D-Dimer threshold on thromboembolic events in Emergency department patients with suspected pulmonary embolism. BECKY 2020;326:2141-9. 3. vent[place]. ??Diagnostic strategies for suspected pulmonary embolism. BECKY 2020; 326:2135-6. Blood Venous blood specimen / Unknown Venipuncture / Unknown 08/05/2022 6:25 AM EDT 08/05/2022 6:41 AM EDT Christiana Guevara MD LAB BLOOD ORDERABLES [facility] [address] [place] [address], * (ABNORMAL) CBC w/ Differential (08/05/2022 1:25 AM EDT) WBC 12.5(H) 4.0 - 11.0 K/uL 08/05/2022 1:43 AM EDT [facility] RBC 4.49 3.70 - 5.20 M/uL 08/05/2022 1:43 AM EDT [facility] Hemoglobin 13.3 11.0 - 16.0 g/dL 08/05/2022 1:43 AM EDT [facility] Hematocrit 39.7 32.0 - 47.0 % 08/05/2022 1:43 AM EDT [facility] MCV 88.4 80.0 - 100.0 fL 08/05/2022 1:43 AM EDT [facility] MCH 29.6 26.0 - 34.0 pg 08/05/2022 1:43 AM EDT [facility] MCHC 33.5 31.0 - 37.0 g/dL 08/05/2022 1:43 AM EDT [facility] RDW-CV 12.7 11.5 - 14.5 % 08/05/2022 1:43 AM EDT [facility] RDW-SD 41.1 35.0 - 51.0 fL 08/05/2022 1:43 AM [facility] Platelets 308 150 - 400 K/uL 08/05/2022 1:43 AM [facility] MPV 10.3 9.1 - 12.4 fL 08/05/2022 1:43 AM [facility] Neutrophil % 59.2 % 08/05/2022 1:43 AM [facility] Lymphocyte % 30.6 % 08/05/2022 1:43 AM [facility] Monocytes % 6.7 % 08/05/2022 1:43 AM [facility] Eosinophils % 2.5 % 08/05/2022 1:43 AM [facility] Basophils % 0.7 % 08/05/2022 1:43 AM [facility] Immature Granulocytes % 0.3 % 08/05/2022 1:43 AM [facility] NRBC % 0.0 0.0 - 0.0 % 08/05/2022 1:43 AM [facility] Neutrophils Absolute 7.41 1.50 - 7.95 K/uL 08/05/2022 1:43 AM [facility] Lymphocytes Absolute 3.84 0.70 - 4.00 K/uL 08/05/2022 1:43 AM [facility] Monocytes Absolute 0.84(H) 0.36 - 0.77 K/uL 08/05/2022 1:43 AM [facility] Eosinophils Absolute 0.31 0.00 - 0.50 K/uL 08/05/2022 1:43 AM [facility] Basophils Absolute 0.09 0.00 - 0.22 K/uL 08/05/2022 1:43 AM [facility] Immature Granulocytes Absolute 0.04 0.00 - 0.10 K/uL 08/05/2022 1:43 AM [facility] NRBC Absolute 0.00 0.00 - 2.00 K/uL 08/05/2022 1:43 AM [facility] Blood Venous blood specimen / Unknown Venipuncture / Unknown 08/05/2022 1:25 AM EDT 08/05/2022 1:29 AM EDT Christiana Guevara MD LAB BLOOD ORDERABLES Performing Organization Address [facility]/ZIP Co de Phone Number [facility] [address] [place] [address], [place] * hCG, serum, qualitative (08/05/2022 1:25 AM EDT) hCG Qualitative Serum Negative MANUAL METHOD 08/05/2022 1:47 AM EDT [facility] Blood Venous blood specimen / Unknown Venipuncture / Unknown 08/05/2022 1:25 AM EDT 08/05/2022 1:29 AM EDT Christiana Guevara MD LAB BLOOD ORDERABLES Performing Organization Address [facility]/ZIP Co de Phone Number [facility] [address] [place] [address], [place] * (ABNORMAL) Comprehensive metabolic panel (08/05/2022 1:25 AM EDT) Sodium 136 135 - 146 mmol/L 08/05/2022 1:48 AM EDT [facility] Potassium 3.2(L) 3.6 - 5.2 mmol/L 08/05/2022 1:48 AM EDT [facility] Chloride 100 98 - 110 mmol/L 08/05/2022 1:48 AM EDT [facility] CO2 (Bicarbonate) 32 20 - 32 mmol/L 08/05/2022 1:48 AM EDT [facility] Anion Gap 4 3 - 14 mmol/L 08/05/2022 1:48 AM EDT [facility] BUN 8 6 - 24 mg/dL 08/05/2022 1:48 AM EDT [facility] Creatinine 0.95 0.55 - 1.30 mg/dL 08/05/2022 1:48 AM EDT [facility] eGFRcr 78 >=60 mL/min/1.7 3m*2 08/05/2022 1:48 AM EDT [facility] Glucose 161(H) 70 - 110 mg/dL 08/05/2022 1:48 AM EDT [facility] Fasting? No 08/05/2022 1:48 AM EDT [facility] Calcium 9.4 8.5 - 10.5 mg/dL 08/05/2022 1:48 AM EDT [facility] AST 65(H) 6 - 42 U/L 08/05/2022 1:48 AM EDT [facility] ALT 132(H) 0 - 55 U/L 08/05/2022 1:48 AM EDT [facility] Alkaline phosphatase 87 30 - 130 U/L 08/05/2022 1:48 AM EDT [facility] Protein, total 8.0 6.0 - 8.4 g/dL 08/05/2022 1:48 AM EDT [facility] Albumin 4.2 3.2 - 5.0 g/dL 08/05/2022 1:48 AM EDT [facility] Bilirubin, total 0.3 0.2 - 1.2 mg/dL 08/05/2022 1:48 AM EDT [facility] Blood Venous blood specimen / Unknown Venipuncture / Unknown 08/05/2022 1:25 AM EDT 08/05/2022 1:29 AM EDT Christiana Guevara MD LAB BLOOD ORDERABLES [facility] [address] [place] [address], * Lipase (08/05/2022 1:25 AM EDT) Lipase 31 13 - 75 U/L 08/05/2022 1:48 AM EDT [facility] Blood Venous blood specimen / Unknown Venipuncture / Unknown 08/05/2022 1:25 AM EDT 08/05/2022 1:29 AM EDT Narrative [facility] - 08/05/2022 1:48 AM EDT Reference Range updated as 04/16/2022 Christiana Guevara MD LAB BLOOD ORDERABLES [facility] [address] [place] [address], documented in this encounter Visit Diagnoses Diagnosis Anxiety- Primary Anxiety state, unspecified Nausea and vomiting, unspecified vomiting type Generalized abdominal pain Abdominal pain, generalized Gastrointestinal hemorrhage, unspecified gastrointestinal hemorrhage type Diarrhea, unspecified type Hypokalemia Hypopotassemia Marijuana use documented in this encounter Administered Medications Inactive Administered Medications - up to 3 most recent administrations Medication Order MAR Action Action Date Dose Rate Site ketorolac (Toradol) injection 30 mg 30 mg, intravenous, Once, On Fri08/05/22 at 0750, For 1 dose Given 08/05/2022 7:58 AM EDT 30 mg LORazepam (Ativan) injection 1 mg 1 mg, intravenous, Once, On Fri08/05/22 at 0615, For 1 dose Given 08/05/2022 6:28 AM EDT 1 mg LORazepam (Ativan) injection 1 mg 1 mg, intravenous, Once, On Fri08/05/22 at 0805, For 1 dose Given 08/05/2022 8:15 AM EDT 1 mg pantoprazole (ProtoNix) injection 40 mg 40 mg, intravenous, Administer over 2 Minutes, Once, On Fri08/05/22 at 0615, For 1 dose, For each 40 mg - reconstitute with 10 ml NS. May be give IV push over 2 minutes. Given 08/05/2022 6:28 AM EDT 40 mg potassium chloride IVPB 10 mEq 10 mEq, intravenous, at 100 mL/hr, Administer over 1 Hours, Once, On Fri08/05/22 at 0750, For 1 dose, Maximum infusion rate = 10 mEq/hour if not on telemetry. Maximum infusion rate on telemetry = 20 mEq/hour. New Bag 08/05/2022 7:59 AM EDT 10 mEq 100 mL/hr sodium chloride 0.9 % bolus 1,000 mL 1,000 mL, intravenous, at 1,000 mL/hr, Administer over 1 Hours, Once, On Fri08/05/22 at 0615, For 1 dose New Bag 08/05/2022 6:29 AM EDT 1,000 mL 1000 mL/hr documented in this encounter Active and Recently Administered Medications Times are shown in EDT. Scheduled Medication Order 08/03/2022 08/04/2022 08/05/2022 ketorolac (Toradol) injection 30 mg (COMPLETED) 30 mg, intravenous, Once, On Fri08/05/22 at 0750, For 1 dose 0758 (Given - Provid er: Amanda Bhatti RN) LORazepam (Ativan) injection 1 mg (COMPLETED) 1 mg, intravenous, Once, On Fri08/05/22 at 0615, For 1 dose 0628 (Given - Provid er: Nydia Chen RN) LORazepam (Ativan) injection 1 mg (COMPLETED) 1 mg, intravenous, Once, On Fri08/05/22 at 0805, For 1 dose 0815 (Given - Provid er: Amanda Bhatti RN) pantoprazole (ProtoNix) injection 40 mg (COMPLETED) 40 mg, intravenous, Administer over 2 Minutes, Once, On Fri08/05/22 at 0615, For 1 dose, For each 40 mg - reconstitute with 10 ml NS. May be give IV push over 2 minutes. 0628 (Given - Provid er: Nydia Chen RN) potassium chloride IVPB 10 mEq (COMPLETED) 10 mEq, intravenous, at 100 mL/hr, Administer over 1 Hours, Once, On Fri08/05/22 at 0750, For 1 dose, Maximum infusion rate = 10 mEq/hour if not on telemetry. Maximum infusion rate on telemetry = 20 mEq/hour. 0759 (New Bag - Prov ider: Amanda Bhatti RN)0859 (Stopped - Provider: Amanda Bhatti RN) sodium chloride 0.9 % bolus 1,000 mL (COMPLETED) 1,000 mL, intravenous, at 1,000 mL/hr, Administer over 1 Hours, Once, On Fri08/05/22 at 0615, For 1 dose 0629 (New Bag - Prov ider: Nydia Chen RN)0729 (Stopped - Provider: Amanda Bhatti RN) documented in this encounter Care Teams Squeegee Tender Relationship Specialty Start Date End Date Dominique Isidro MD [address] [place] [id number] PCP - General 06/01/21 documented as of this encounter
--- OUTSIDE RECORDS SUMMARY | 2024-03-06 08:08 | XMS_ITS ---
Author Organization [facility] Address [address] [place] [address]- Care Team Providers Care Size Changer Name Role Phone Dominique Isidro MD Primary Care Physician Encounter Date(s): 03/30/15 - 03/30/[address] [address]- [facility] [phone] Discharge Diagnosis: Pilonidal cyst Attending Physician: Dannie Donato MD Admitting Physician: Dannie Donato MD Vital Signs Most recent to oldest [Reference Range]: 1 Temperature Oral [96.1-99.6 DegF] 97.6 D egF (03/30/15 10:53 AM) SpO2 [94-100 %] 97 % (03/30/15 5:00 PM) Respiratory Rate [12-24 br/min] 16 br/mi n (03/30/15 5:00 PM) Peripheral Pulse Rate [50-110 bpm] 78 bp m (03/30/15 5:00 PM) Blood Pressure [80-140/50-90 mmHg] 133/8 2mmHg (03/30/15 5:00 PM) Weight 90.72 Kg (03/29/15 6:05 PM) Height 157.5 cm (03/29/15 6:05 PM) Body Mass Index 36.57 Kg/m2 (03/29/15 6:05 PM) Advanced Directives No (03/29/15 6:05 PM) Reason for No Advance Directive Patient unable to provide an advance care plan (03/29/15 6:05 PM) Problem List Condition Effective Dates Status Health Status Inform ant Acid reflux(Confirmed) Active pa tient Anxiety(Confirmed) Active patien t Bipolar 1 disorder(Confirmed) Active patient Obesity(Probable Diagnosis) Active Panic attack(Confirmed) 1 Active patient 1last panic attack 2 days ago Allergies, Adverse Reactions, Alerts No Known Allergies Medications Augmentin 875 mg-125 mg oral tablet 1 tab(s), PO, q12hr, X 10 day(s), # 20 tab(s), 0 Refill(s), Tab Start Date: 03/30/15 Stop Date: 04/09/15 Status: Ordered Benadryl 50 mg, PO, HS, PRN PRN as needed for insomnia, 0 Refill(s) Start Date: 12/31/14 Status: Ordered Latuda 80 mg, PO, HS, 0 Refill(s) Start Date: 12/31/14 Status: Ordered metformin 500 mg oral tablet 500 mg = 1 tab(s), PO, HS, 0 Refill(s) Start Date: 03/29/15 Status: Ordered oxycodone 5 mg oral tablet 1-2 tablets, PO, q4hr, PRN PRN for pain, # 40 tab(s), 0 Refill(s), Tab Start Date: 03/30/15 Status: Ordered PriLOSEC OTC 20 mg oral delayed release tablet 20 mg = 1 tab(s), PO, BID, 0 Refill(s) Start Date: 03/29/15 Status: Ordered Valium 20 mg, PO, HS, 0 Refill(s) Start Date: 12/31/14 Status: Ordered Xanax 1 mg, PO, QID, 0 Refill(s) Start Date: 12/31/14 Status: Ordered Results POINT OF CARE Most recent to oldest [Reference Range]: 1 Urine POC Negative (03/30/15 11:25 AM) Interior Wall Assembler Pos Urine POC Yes (03/30/15 11:25 AM) Blood Glucose POC [65-110 mg/dL] 110 mg/ dL (03/30/15 3:35 PM) Blood Glucose Testing Reason Fasting (03/30/15 3:35 PM) HEMATOLOGY Most recent to oldest [Reference Range]: 1 WBC [3.7-11.2 thous/mm3] 10.0 thous/mm3 (03/30/15 10:51 AM) RBC [3.60-5.00 Mil/mm3] 4.32 Mil/mm3 (03/30/15 10:51 AM) Hgb [11.8-15.8 Gm/dL] 12.9 Gm/dL (03/30/15 10:51 AM) Hct [36.0-47.0 %] 39.6 % (03/30/15 10:51 AM) Platelet [150-400 thous/mm3] 309 thous/m m3 (03/30/15 10:51 AM) MCV [81-99 fL] 92 fL (03/30/15 10:51 AM) MCH [27-31 pGm] 30 pGm (03/30/15 10:51 AM) MCHC [32-36 Gm/dL] 33 Gm/dL (03/30/15 10:51 AM) RDW [11.5-14.5 %] 12.9 % (03/30/15 10:51 AM) MPV [7.4-11.5 fL] 10.6 fL (03/30/15 10:51 AM) Neutrophils [36-66 %] 58 % (03/30/15 10:51 AM) Lymphocytes [22-40 %] 31 % (03/30/15 10:51 AM) Monocytes [0-11 %] 7 % (03/30/15 10:51 AM) Eosinophils [0-3 %] 3 % (03/30/15 10:51 AM) Basophils [0-1 %] 0 % (03/30/15 10:51 AM) Immature Granulocytes [0-2 %] 1 % (03/30/15 10:51 AM) Absolute Neutro Count 5840 /mm3 *NA* (03/30/15 10:51 AM) Immunizations No data available for this section Procedures Procedure Date Related Diagnosis Body Site breast augmentation Social History Social History Type Response Smoking Status Never smoker Assessment and Plan Extracted from: Title:Discharge Patient Summary Author:Alecia Reyes Date:03/30/[address] [id number] Outpatient Summary Name: PANCHO HEATON Age: 34 Years Date of : 1980 Arrival Time: 03/30/2015 10:32:22 Primary Care Physician: Dominique Isidro MD PCP Phone: [phone] Reason for Admission: PILONIDAL CYST You had the following procedures performed during your inpatient visit: Procedure Name Date/Time Performed Pilonidal Cystectomy 03/30/15 15:43 The following test results were not available before your discharge. Your Primary Care Provider should contact you of any abnormal test results regarding follow- up. However, if you would like the results, please contact your Primary Care Provider. Procedure Name Date Performed Tissue Exam Request for Pathology 03/30/15 15:24 Final Diagnosis: Pilonidal cyst Resuscitation status: No resuscitation status info provided. Advanced Directives: Advanced Directives No Reason for No Advanced Directive Patient unable to provide an advance care plan Directive(s) in place Medical Power of Motor Builder Assembler Name Name of Surrogate Directives Location [facility] would like to thank you for allowing us to assist you with your healthcare needs. The following includes patient education materials and information regarding your injury / illness. Our entire staff strives to provide a very good experience for our patients and their families. PLEASE ENSURE YOU FOLLOW-UP PER THE INSTRUCTIONS BELOW! FRANKY HEATONIE has been given the following list of patient education materials, prescriptions and follow-up instructions: Follow-up Instructions: Please call 911 if your condition is of a serious nature and you require immediate assistance. You may also seek services at your local Emergency Department. If you have questions regarding your care following discharge, please contact the specialist (surgeon, environmental health sanitarian, etc.) who was involved with your hospital care or your PCP's office. With: Address: When: [facility] [address] [place] [address] [phone] Business (1) Within 5-7 days Other Clinical Information: Vital Sign Latest Temp Oral 97.6 DegF Temp Tympanic Temp Intravascular Temp Axillary Temp Rectal O2 Sat 97 % Respiratory Rate 16 br/min Peripheral Pulse Rate 78 bpm Apical Heart Rate Blood Pressure 133 mmHg / 82 mmHg Weight 90.72 Kg Discharge Orders: Order Name Order Details The Discharge Electronic Signature 03/30/15 15:56:00 EST, Above discharge orders electronically signed by:, Ordering Physician: Dannie Donato MD Final Medication List: ALPRAZolam (Xanax) 1 mg, By mouth, 4 times a day, Refills: 0 amoxicillin-clavulanate (Augmentin 875 mg-125 mg oral tablet) 1 tab(s), By mouth, every 12 hours, 10 day(s), Refills: 0 diazepam (Valium) 20 mg, By mouth, once a day (at bedtime), Refills: 0 diphenhydrAMINE (Benadryl) 50 mg, By mouth, once a day (at bedtime), As Needed, as needed for insomnia, Refills: 0 lurasidone (Latuda) 80 mg, By mouth, once a day (at bedtime), Refills: 0 metformin (metformin 500 mg oral tablet) 1 tab(s), By mouth, once a day (at bedtime), Refills: 0 omeprazole (PriLOSEC OTC 20 mg oral delayed release tablet) 1 tab(s), By mouth, 2 times a day, Refills: 0 oxyCODONE (oxycodone 5 mg oral tablet) , 1-2 tablets, By mouth, every 4 hours, As Needed, for pain, Refills: 0 Immunization History at [facility]: No immunizations given this visit Allergies: [facility] Physicians provided you with a complete list of medications post discharge, if you have been instructed to stop taking a medication please ensure you also follow up with this information to your Primary Care Physician. Patient Education Materials: Anesthesia: After Your Surgery (CM) (COLMCGRA); ACU Discharge Instructions (MARMSIOMARA) (MARMARCH); Pilonidal Cyst [id number] Anesthesia: After Your Surgery You? ve just had surgery. During surgery, you received medication called anesthesia to keep you comfortable and pain-free. The medications you recieved today will remain in your system for 24 hours. For your safety do not drive a car, operate hazardous equiptment or machinery, take any sedatives or drink any alcohol. After surgery, you may experience some pain or nausea. This is normal. Here are some tips for feeling better and recovering after surgery. Stay on schedule with your medication. Coping with Pain If you have pain after surgery, pain medication will help you feel better. Take it as directed, before pain becomes severe. Also, ask your doctor or pharmacist about other ways to control pain, such as with heat, ice, and relaxation. And follow any other instructions your surgeon or nurse gives you. Tips for Taking Pain Medication To get the best relief possible, remember these points: ? ? Pain medications can upset your stomach. Taking them with a little food may help. ? ? Most pain relievers taken by mouth need at least 20 to 30 minutes to take effect. ? ? Taking medication on a schedule can help you remember to take it. Try to time your medication so that you can take it before beginning an activity, such as dressing, walking, or sitting down for dinner. ? ? Constipation is a common side effect of pain medications. Drink lots of fluids. Eating fruit and vegetables can also help. Don? t take laxatives unless your surgeon has prescribed them. ? ? Mixing alcohol and pain medication can cause dizziness and slow your breathing. It can even be fatal. Don? t drink alcohol while taking pain medication. ? ? Pain medication can slow your reflexes. Don? t drive or operate machinery while taking pain medication. Managing Nausea Some people have an upset stomach after surgery. This is often due to anesthesia, pain, pain medications, or the stress of surgery. The following tips will help you manage nausea and get good nutrition as you recover. If you were on a special diet before surgery, ask your doctor if you should follow it during recovery. Start Eating Slowly Don? t push yourself to eat. Your body will tell you what to eat and when. These tips may help: ? ? Start off with liquids and soup. They are easier to digest. ? ? Progress to semisolids (mashed potatoes, applesauce, and gelatin) as you feel ready. ? ? Slowly move to solid foods. Don? t eat fatty, rich, or spicy foods at first. ? ? Don? t force yourself to have three large meals a day. Instead, eat smaller amounts more often. ? ? Take pain medications with a small amount of solid food, such as crackers or toast. Going Home Your doctor or nurse will show you how to take care of yourself when you go home. He or she will also answer your questions. Be sure to keep all follow-up doctor? s appointments. And rest after your procedure for as long as your doctor tells you to. Call Your Surgeon If ? You still have pain an hour after taking medication (it may not be strong enough). ? ? You feel too sleepy, dizzy, or groggy (medication may be too strong). ? ? You have side effects like nausea, vomiting, or skin changes (rash, itching, or hives). ?? [id number] [employer], [address] [place] [address], [place] [address]. All rights reserved. This information is not intended as a substitute for professional medical care. Always follow your healthcare professional's instructions. [id number] [facility] [employer] Discharge Instructions and Information You will not be discharged home unless accompanied by a responsible adult. It is recommended that a responsible adult be with you for the rest of the day. Do not drink alcoholic beverages, drive, operate hazardous machinery, or make any important personal or business decisons for twenty-four (24) hours. Pain Medication ? ? Pain medications can upset your stomach, take them with a little food. ? ? Most pain relievers taken by mouth need at least 20 to 30 minutes to take effect. ? ? Take medication on a schedule. Try to take it before beginning an activity, such as dressing or walking. ? ? You may become constipated. Drink lots of fluids. Eating fruit and vegetables can also help. Don? t take laxatives unless prescribed. ? ? Don? t drink alcohol while taking pain medication it can cause dizziness, slow your breathing and reflexes, and be fatal. ? ? You were given at . Next dose (if necessary) is due at . Diet ? ? Start off with liquids, soup, Jello, soft drinks, for the first twenty-four (24) hours as these are less likely to upset your stomach. ? ? Progress to semisolids (mashed potatoes, applesauce, and gelatin). Slowly move to solid foods. Don? t eat fatty, rich, or spicy foods at first. Dressing ? ? Keep your dressing dry. ? ? Do not change your dressing until you see your doctor. ? ? Remove your dressing in hours. ? ? Change your dressing as necessary. ? ? Apply ice to . ? ? Other . Hygiene May shower in ____ hours. Report the following signs or any questions regarding your physical condition to your doctor ? If distended, uncomfortable, or unable to void by . ? ? Unusual swelling in or around your wound area. ? ? Temperature of 101F or above ? ? Pain/uncontrolled by pain medication. ? ? Bleeding ? ? Persistent nausea and vomiting. In case of emergency and you are unable to contact your physician, please go to the nearest Emergency Department or call [facility] Emergency Department . ?? [phone] [place] [address]. All rights reserved. This information is not intended as a substitute for professional medical care. Always follow your healthcare professional's instructions. Comment: FLORINA Grier NATALIE , have received patient education materials/instructions and have verbalized understanding: 03/30/2015 17:22:02 Patient Signature or Responsible Alliance Party Signature 03/30/2015 17:22:02 Provider Signature [facility] Patient Portal is a personalized secured online tool for [facility] patients that helps keep you up to date on your healthcare information by giving you convenient access to your hospital test results and medical records. The Patient Portal is accessible through the Internet, so you can access it from virtually anywhere you would like. If you were enrolled during your stay, please remember to check your personal email, look for the invitation message and create your account. If you have not enrolled in the Patient Portal prior to discharge you may ask your nurse for assistance in enrolling before you are discharged. FLORINA Grier NATALIE , have received patient education materials/instructions and have verbalized understanding: 03/30/2015 17:22:02 Patient Signature or Responsible Alliance Party Signature 03/30/2015 17:22:02 Provider Signature Future Appointments ??
[2024-03-06] MEDS: Acetaminophen 500 MG TAB 1000 MG PO (08:09)
[2024-03-06 08:14] VITALS: BP 150/89; PULSE 85; RESP 14; O2SAT 99
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
[2024-03-06 09:13] VITALS: BP 134/88; PULSE 90; RESP 18; O2SAT 99
--- NOTE | 2024-03-26 00:50 | NUR.NOTE ---
[facility] called about a wellness check for the pt. P wanted to know if the pt was currently in the ER, I informed P that the last time the pt was seen in the ER was 03/06/24
== END 2024-03-06 09:25 | disposition critical access hospital (66) ==
PROVIDERS: Emergency Provider Emergency Medicine
DX: T74.21XA Adult sexual abuse, confirmed, initial encounter (principal); M79.645 Pain in left finger(s); R68.84 Jaw pain; S00.83XA Contusion of other part of head, initial encounter; Y07.030 Male partner, current, perpetrator of maltreatment and neglect; Y92.013 Bedroom of single-family (private) house as the place of occurrence of the external cause
CPT/HCPCS: 99285; 73140

== ENCOUNTER 2024-08-03 21:31 | Emergency (ER) | payer MEDICARE, SELFPAY ==
[2024-08-03 21:34] VITALS: BP 151/102; PULSE 126; RESP 20; TEMP 36.7; O2SAT 98
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
[2024-08-03] MEDS: Bacitracin 30 GM TUBE TP (22:12)
== END 2024-08-03 22:14 | disposition home or self-care (01) ==
LOC: ER 22:09
PROVIDERS: Emergency Provider Emergency Medicine
DX: S91.311A Laceration without foreign body, right foot, initial encounter (principal); W22.8XXA Striking against or struck by other objects, initial encounter; Y93.89 Activity, other specified; Y92.018 Other place in single-family (private) house as the place of occurrence of the external cause; F17.290 Nicotine dependence, other tobacco product, uncomplicated
CPT/HCPCS: 99283

== ENCOUNTER 2024-08-11 16:51 | Emergency (ER) | payer MEDICARE, SELFPAY ==
--- NOTE | 2024-08-11 16:45 | RT.EKG_ITS ---
APPROVED REPORT Exam: Resting ECG Reason for Exam: CP/SOB Patient Location: E HR:104 bpm ECG Measurements Heart Rate 104 AXIS VT 134 P 40 QRSd 81 QRS 54 QT 322 T 1 QTc 424 Conclusion Sinus tachycardia, rate 104 No interval abnormalities No STEMI No priors available for comparison
[2024-08-11 16:53] VITALS: BP 139/80; PULSE 116; RESP 26; TEMP 37.3; O2SAT 96
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
[2024-08-11 18:02] LABS: Bilirubin Negative (Negative); Blood Negative (Negative); Clarity Clear (Clear); Glucose >=1000 mg/dL (Negative); Ketones Trace mg/dL (Negative); Leukocyte Esterase Negative (Negative); Nitrite Negative (Negative); Urobilinogen 0.2 mg/dL (Up to 0.2); pH 6.5 (5-8)
[2024-08-11 18:08] LABS: Abs Immature Grans 0.05 10^3/uL (0.0-0.06); Absolute Basophil Count 0.04 10^3/uL (0.0-0.2); Absolute Eosinophil Count 0.42 10^3/uL (0.0-0.7); Absolute Lymphocyte Count 0.32 10^3/uL (1.2-3.4); Absolute Monocyte Count 1.03 10^3/uL (0.1-0.8); Absolute Neutrophil Count 6.24 10^3/uL (1.2-6.7); Basophils % 0.5 %; Eosinophils % 5.2 %; HCT 37.5 % (36.0-46.0); HGB 12.9 g/dL (11.2-15.7); Immature Grans % 0.6 %; MCH 29.6 pg (27.0-33.0); MCHC 34.4 % (32.0-36.0); MCV 86 fL (80-95); MPV 10.5 fL (8.0-11.0); Monocytes % 12.7 %; Platelet Count 203 10^3/uL (130-400); RBC 4.36 10^6/uL (3.93-5.22); RDW 11.8 % (11.7-14.6); RDW-SD 37.3 fL
[2024-08-11 18:19] LABS: Bacteria Rare HPF (Negative); Crystals Negative HPF (Negative); Epithelial Cells Moderate HPF (Negative); Mucus Negative (Negative); RBC Negative HPF (0-2); WBC 0-2 HPF (0-5)
[2024-08-11 18:20] LABS: C & S Indicated? No
[2024-08-11 18:24] VITALS: PULSE 108; RESP 28; RESP 5; RESP 7; O2SAT 98
[2024-08-11] MEDS: Albuterol 2.5 MG/3 ML INH SOLN VIAL UPD (18:24)
[2024-08-11 19:01] LABS: COVID-19 PCR Negative (Negative); Influenza A PCR Positive (Negative); Influenza B PCR Negative (Negative); RSV PCR Negative (Negative)
[2024-08-11 19:02] LABS: Source Nasopharynx
[2024-08-11 19:25] LABS: ALT 31 U/L (14-59); AST 14 U/L (15-37); Albumin 3.9 g/dL (3.4-5.0); Alkaline Phosphatase 77 U/L (46-116); Anion Gap 11.1 mmol/L (3-11); BUN 4 mg/dL (7-18); Bilirubin, Total 0.3 mg/dL (0.2-1.0); CO2 23.9 mmol/L (21.0-32.0); CREATININE 0.9 mg/dL (0.55-1.02); Calcium 9.1 mg/dL (8.5-10.1); Chloride 96 mmol/L (98-107); Estimated GFR 82.37 (mL/min/1.73m2); Glucose 222 mg/dL (74-106); Lipase 19 U/L (<78); Magnesium 1.6 mg/dL (1.8-2.4); Potassium 3.1 mmol/L (3.5-5.1); Sodium 131 mmol/L (136-145); TSH (W/Ref FT4) 0.44 uIU/mL (0.36-3.74); Total Protein 7.5 g/dL (6.4-8.2); Troponin I 8 ng/L (<or=51)
== END 2024-08-11 19:17 | disposition left against medical advice (07) ==
PROVIDERS: Emergency Provider Physician Assistant
DX: J10.1 Influenza due to other identified influenza virus with other respiratory manifestations (principal); E87.1 Hypo-osmolality and hyponatremia; E87.6 Hypokalemia; E83.42 Hypomagnesemia; F17.290 Nicotine dependence, other tobacco product, uncomplicated; Z53.29 Procedure and treatment not carried out because of patient's decision for other reasons
CPT/HCPCS: 80053; 81025; 83690; 87637; 93005; 94640; 99284; 81003; 81015; 83735; 84443; 84484; 85025; 93010; J7613

== ENCOUNTER 2024-08-16 15:59 | Outpatient (REF) | payer MEDICARE, SELFPAY | END 2024-08-16 16:00 | disposition home or self-care (01) | LOC: LBN 15:59 | PROVIDERS: Visit Provider Nurse Practitioner Family | DX: L03.211 Cellulitis of face (principal); B95.62 Methicillin resistant Staphylococcus aureus infection as the cause of diseases classified elsewhere | CPT/HCPCS: 87077; 87070; 87186; 87205 ==

== ENCOUNTER 2024-08-18 19:15 | Inpatient (IN) | payer MEDICARE, SELFPAY ==
[2024-08-18] VITALS (67 sets, daily range): BP systolic 141–143; BP diastolic 73–89; PULSE 80–100; RESP 20–23; TEMP 32.8–35.9; O2SAT 88–100
--- NOTE | 2024-08-18 19:30 | RT.EKG_ITS ---
APPROVED REPORT Exam: Resting ECG Reason for Exam: [facility] Patient Location: E HR:88 bpm ECG Measurements Heart Rate 88 AXIS DE 148 P 63 QRSd 94 QRS 62 QT 377 T -30 QTc 456 Conclusion Sinus rhythm...normal P axis, V-rate 60- 99 Left atrial enlargement...P, P'>60mS, <-0.15mV V1 Sinus rhythm with left atrial enlargement.When compared to 08/11/24 decreased HR noted. WD
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
[2024-08-18 20:17] LABS: Abs Immature Grans 0.07 10^3/uL (0.0-0.06); Absolute Basophil Count 0.04 10^3/uL (0.0-0.2); Absolute Lymphocyte Count 4.06 10^3/uL (1.2-3.4); Absolute Monocyte Count 0.82 10^3/uL (0.1-0.8); Absolute Neutrophil Count 8.06 10^3/uL (1.2-6.7); Basophils % 0.3 %; Eosinophils % 0.8 %; HCT 40.6 % (36.0-46.0); HGB 13.5 g/dL (11.2-15.7); Immature Grans % 0.5 %; Lymphocytes % 30.9 %; MCH 29.3 pg (27.0-33.0); MCHC 33.3 % (32.0-36.0); MCV 88 fL (80-95); MPV 10.2 fL (8.0-11.0); Monocytes % 6.2 %; Neutrophils % 61.3 %; Platelet Count 341 10^3/uL (130-400); RDW 11.9 % (11.7-14.6); RDW-SD 38.3 fL; WBC 13.15 10^3/uL (4.4-10.8)
[2024-08-18 20:18] LABS: Absolute Eosinophil Count 0.11 10^3/uL (0.0-0.7)
[2024-08-18 20:35] LABS: ALT 29 U/L (14-59); AST 14 U/L (15-37); Albumin 4.1 g/dL (3.4-5.0); Alkaline Phosphatase 103 U/L (46-116); Anion Gap 11.9 mmol/L (3-11); BUN 9 mg/dL (7-18); Bilirubin, Total 0.3 mg/dL (0.2-1.0); CO2 28.1 mmol/L (21.0-32.0); CREATININE 1.1 mg/dL (0.55-1.02); Calcium 9.8 mg/dL (8.5-10.1); Chloride 100 mmol/L (98-107); Estimated GFR 64.74 (mL/min/1.73m2); Glucose 239 mg/dL (74-106); HCG Qual (Serum) Negative; Lipase 28 U/L (<78); Magnesium 1.8 mg/dL (1.8-2.4); Potassium 3.1 mmol/L (3.5-5.1); Sodium 140 mmol/L (136-145); Total Protein 8.3 g/dL (6.4-8.2); Troponin I 4 ng/L (<or=51)
[2024-08-18] MEDS: Normal Saline 1,000 ML 1000 ML IV (20:44)
[2024-08-18] MEDS: cefTRIAXone 2 GM/50 ML BAG IVPB (20:45)
[2024-08-18] MEDS: Water,Injection,Sterile 10 ML VIAL (20:46)
[2024-08-18 20:51] LABS: ETHANOL BLOOD < 3.0 mg/dL (<10)
[2024-08-18 20:55] LABS: COVID-19 PCR Negative (Negative); Influenza A PCR Positive (Negative); Influenza B PCR Negative (Negative); RSV PCR Negative (Negative)
[2024-08-18 20:57] LABS: Source Nasopharynx
[2024-08-18 21:16] LABS: Bilirubin Negative (Negative); Blood Negative (Negative); Clarity Clear (Clear); Glucose Negative (Negative); Ketones Negative (Negative); Leukocyte Esterase Negative (Negative); Nitrite Negative (Negative); Specific Gravity >= 1.030 (1.005-1.025); Urobilinogen 0.2 mg/dL (Up to 0.2); pH 5.5 (5-8)
[2024-08-18] MEDS: Potassium Chloride 20 MEQ TABCR 40 MEQ PO (21:18)
[2024-08-18 21:29] LABS: Bacteria Moderate HPF (Negative); C & S Indicated? No; Casts 0-2 Hyaline LPF (Negative); Crystals Negative HPF (Negative); Epithelial Cells Moderate HPF (Negative); Mucus Moderate (Negative); RBC 0-2 HPF (0-2); WBC 0-2 HPF (0-5)
[2024-08-18 21:35] LABS: *AMPHETAMINES SCREEN URINE Positive (Negative); *BARBITURATES SCREEN URINE Negative (Negative); *BENZODIAZEPINES SCREEN URINE Positive (Negative); Cannabinoids THC Positive (Negative); Cocaine Screen,Urine Negative (Negative); METHADONE URINE SCREEN Positive (Negative); OPIATES URINE SCREEN Negative (Negative)
[2024-08-18] MEDS: Omnipaque 350 MG/ML 100 ML BTL IJ (21:35)
[2024-08-18] MEDS: Normal Saline - Diluent 50 ML VIAL IJ (21:35)
[2024-08-18 21:36] LABS: Troponin I < 4 ng/L (<or=51)
[2024-08-18 21:36] LABS: Tricyclic Antidepressants Negative (Negative)
--- NOTE | 2024-08-18 21:49 | DI.CT_ITS ---
Exam(s) CT HEAD CERVICAL SPINE WO EXAM: CT HEAD CERVICAL SPINE WO CLINICAL HISTORY: AMS, trauma. TECHNIQUE: Imaging Protocol: Axial computed tomography images with coronal and sagittal reformatted images were created and reviewed COMPARISON: CT CT FACIAL W from 08/18/2024 FINDINGS: CT Head: Ventricles and Extra axial spaces: Normal in size and morphology for the patient's age. Hemorrhage: None. Cerebral parenchyma: No evidence of an acute territorial infarct. Midline shift: None. Brainstem/Cerebellum: Normal. Calvarium: Normal. Visualized Paranasal sinuses/Mastoids: There is mucosal thickening in the maxillary sinuses bilateral ly. There is an air-fluid level seen in the right maxillary sinus. There is fluid seen in a few eth moid air cells. The remaining visualized paranasal sinuses are clear as are the mastoid air cells. Soft Tissues: Unremarkable. CT Cervical Spine: Bones: No acute fracture or subluxation. 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 Soft Tissues: Unremarkable. Lung Apices: Clear. IMPRESSION: 1. No acute intracranial process. 2. No acute fracture or subluxation in the cervical spine. 3. No definite facial fracture or orbital fractures appreciated. If symptoms persist, a repeat CT sc an of the face should be considered for for re-evaluation. 4. The preliminary [facility] report was reviewed. RADIATION DOSE DELIVERED: 1,879.03mGy.cm Total DLP DATA REPOSITORY: All CT scans at this facility are submitted to the National Radiology Data Registry (NRDR) Dose Index Registry (DIR) with the [employer] ([employer]). RADIATION OPTIMIZATION: All CT scans at this facility use at least one of these dose optimization te chniques: automated exposure control; mA and/or kV adjustment per patient size (includes targeted exa ms where dose is matched to clinical indication); or iterative reconstruction.
--- NOTE | 2024-08-18 21:49 | DI.CT_ITS ---
Exam(s) CT FACIAL W EXAM: CT FACIAL W CLINICAL HISTORY: facial abscess. TECHNIQUE: Imaging Protocol: Axial computed tomography images with coronal and sagittal reformatted images were created and reviewed CONTRAST MATERIAL: Intravenous: Omnipaque 350 Contrast volume:100 mL COMPARISON: No exams were available for comparison FINDINGS: Facial Bones: No definite fracture is noted in facial bones. Sinuses and Mastoids: There is opacification of a few ethmoid air cells bilaterally. There is mucos al thickening in the maxillary sinuses bilaterally. There is a fluid level in the right maxillary si nus. The sphenoid sinuses are clear. The mastoid air cells are clear. Globes, extraocular muscles, optic nerves and retrobulbar fat: Normal. Upper aerodigestive tract: Normal. Mandible and bilateral temporomandibular joints: Normal. Soft tissues: There is infiltration of the soft tissues overlying the right mandible. There is skin thickening in this region. No focal fluid collection is seen to suggest an abscess. The underlying bone is intact. No findings to suggest osteomyelitis. Mildly enlarged lymph nodes are seen in the s ubmandibular region which are likely reactive. Enhancement: No abnormal enhancement. IMPRESSION: 1. Infiltration of the soft tissues in soft tissue thickening overlying the right mandible. This may represent a cellulitis. No focal fluid collection is seen to suggest an abscess. 2. The underlying bone is unremarkable. No CT findings to suggest osteomyelitis. 3. Maxillary sinusitis. Air-fluid level in the right maxillary sinus which may represent an acute pr ocess. RADIATION DOSE DELIVERED: 1,879.03mGy.cm Total DLP DATA REPOSITORY: All CT scans at this facility are submitted to the National Radiology Data Registry (NRDR) Dose Index Registry (DIR) with the [employer] ([employer]). RADIATION OPTIMIZATION: All CT scans at this facility use at least one of these dose optimization te chniques: automated exposure control; mA and/or kV adjustment per patient size (includes targeted exa ms where dose is matched to clinical indication); or iterative reconstruction.
--- NOTE | 2024-08-18 21:49 | DI.RAD_ITS ---
Exam(s) XR PORTABLE CHEST AP EXAM: XR PORTABLE CHEST AP CLINICAL HISTORY: Flu + TECHNIQUE: 2D digital imaging was performed of the chest. One image was obtained. An AP view was ob tained. COMPARISON: No exams were available for comparison FINDINGS: Low lung volumes. MEDIASTINUM: Normal. HEART: Normal. PULMONARY VASCULATURE: Normal. LUNGS: Questionable faint infiltrates are seen in the lower lobes. This may be complicated by the lo w lung volumes in the crowding of the pulmonary vasculature. PLEURAL SPACE: No pleural effusion or pneumothorax. BONE:Within normal limits for the patient's age. OTHER FINDINGS:Normal. IMPRESSION: 1. Question of bilateral basilar ground-glass infiltrates. Examination is somewhat limited due to lo w lung volumes. In pneumonia cannot be excluded. A dedicated PA and lateral view of the chest shoul d be considered for further characterization. 2. The preliminary [facility] report was reviewed. DATA REPOSITORY: RADIATION DOSE DELIVERED:
--- NOTE | 2024-08-18 22:41 | DI.[facility]_ITS ---
Addendum created by Lanny Oliveira MD on 08/18/2024 10:45:17 PM EDT: Questionable fracture through the left medial orbital wall. Initial report created on 08/18/2024 10:40:48 PM EDT: PROCEDURE INFORMATION: Exam: CT Maxillofacial With Contrast Exam date and time: 08/18/2024 9:25 PM Age: 43 years old Clinical indication: Facial abscess, TECHNIQUE: Imaging protocol: Computed tomography of the face with contrast. Radiation optimization: All CT scans at this facility use at least one of these dose optimization techniques: automated exposure control; mA and/or kV adjustment per patient size (includes targeted exams where dose is matched to clinical indication); or iterative reconstruction. Contrast material: [id number]; Contrast volume: 100 ml; Contrast route: INTRAVENOUS (IV); COMPARISON: CT HEAD CERVICAL SPINE WO 08/18/2024 9:25 PM FINDINGS: Paranasal sinuses: Partial opacification of the right maxillary sinus. Partial opacification with mucosal thickening of the left maxillary sinus. Mucosal thickening and partial opacification of the ethmoid air cells. Orbital cavities: Orbits are normal. Globes are unremarkable. Lymph nodes: Enlarged lymph nodes in the right submandibular region measuring up to 13 mm, likely reactive. Bones: No fracture or dislocation Soft tissues: Soft tissue irregularity on the anterolateral aspect of the right jaw with moderate soft tissue edema. No well-formed fluid collection to suggest abscess at this time. IMPRESSION: Soft tissue irregularity on the anterolateral aspect of the right jaw with moderate soft tissue edema. No well-formed fluid collection to suggest abscess at this time. Pansinusitis. Dictated and Authenticated by: Lanny Oliveira MD. Orderin Roger Pimentel MD
--- NOTE | 2024-08-18 22:45 | DI.[facility]_ITS ---
PROCEDURE INFORMATION: Exam: CT Head Without Contrast Exam date and time: 08/18/2024 9:25 PM Age: 43 years old Clinical indication: Altered mental status/memory loss; AMS, trauma TECHNIQUE: Imaging protocol: Computed tomography of the head without contrast. Radiation optimization: All CT scans at this facility use at least one of these dose optimization techniques: automated exposure control; mA and/or kV adjustment per patient size (includes targeted exams where dose is matched to clinical indication); or iterative reconstruction. COMPARISON: CT FACIAL W 08/18/2024 9:25 PM FINDINGS: Brain: Normal. No hemorrhage. Unremarkable white matter. No mass effect. Cerebral ventricles: No ventriculomegaly. Paranasal sinuses: Partial opacification of the bilateral maxillary sinuses and ethmoid air cells again seen. Mastoid air cells: Visualized mastoid air cells are well aerated. Bones: Questionable fracture through the left medial orbital wall. Soft tissues: Unremarkable. IMPRESSION: Questionable fracture through the left medial orbital wall. PROCEDURE INFORMATION: Exam: CT Cervical Spine Without Contrast Exam date and time: 08/18/2024 9:25 PM Age: 43 years old Clinical indication: Altered mental status/memory loss; AMS, trauma TECHNIQUE: Imaging protocol: Computed tomography of the cervical spine without contrast. Radiation optimization: All CT scans at this facility use at least one of these dose optimization techniques: automated exposure control; mA and/or kV adjustment per patient size (includes targeted exams where dose is matched to clinical indication); or iterative reconstruction. COMPARISON: CT FACIAL W 08/18/2024 9:25 PM FINDINGS: Bones/joints: No acute fracture. Normal alignment. C2-C3: No significant disc bulge or herniation. No severe spinal canal stenosis. No significant neural foraminal narrowing. C3-C4: No significant disc bulge or herniation. No severe spinal canal stenosis. No significant neural foraminal narrowing. C4-C5: No significant disc bulge or herniation. No severe spinal canal stenosis. No significant neural foraminal narrowing. C5-C6: No significant disc bulge or herniation. No severe spinal canal stenosis. No significant neural foraminal narrowing. C6-C7: No significant disc bulge or herniation. No severe spinal canal stenosis. No significant neural foraminal narrowing. C7-T1: No significant disc bulge or herniation. No severe spinal canal stenosis. No significant neural foraminal narrowing. Lungs: Lung apices are normal. Soft tissues: Unremarkable. IMPRESSION: No acute findings. Dictated and Authenticated by: Lanny Oliveira MD. Orderin Roger Pimentel MD
--- NOTE | 2024-08-18 22:48 | DI.[facility]_ITS ---
PROCEDURE INFORMATION: Exam: XR Chest Exam date and time: 08/18/2024 9:51 PM Age: 43 years old Clinical indication: Other: Flu + TECHNIQUE: Imaging protocol: Radiologic exam of the chest. Views: 1 view. COMPARISON: CT HEAD CERVICAL SPINE WO 08/18/2024 9:25 PM FINDINGS: Lungs: Mild bilateral upper and lower lobe bronchial wall thickening, compatible with reactive airway disease/bronchitis. Minimal ground-glass opacities within the lower lobes bilaterally, likely areas of atelectasis and/or pneumonitis. No focal consolidation. No pulmonary edema. Pleural spaces: Normal. Heart/Mediastinum: Normal. Bones/joints: No acute abnormality. IMPRESSION: 1. Mild bilateral upper and lower lobe bronchial wall thickening, compatible with reactive airway disease/bronchitis. 2. Minimal ground-glass opacities within the lower lobes bilaterally, likely areas of atelectasis and/or pneumonitis. Dictated and Authenticated by: Neo Julian MD. Orderin Roger Pimentel MD
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
[2024-08-18] MEDS: Ondansetron 4 MG/2 ML VIAL IVP (23:32)
--- NOTE | 2024-08-18 23:51 | NUR.NOTE ---
Nursing Note: @211 1L NS from IV fluid warmer administered d/t rectal temp of 34C. Jimena Hugger also applied on max temp. Pt not tolerating well. C/o already feeling 'way too hot' despite skin being cold and clammy to the touch. MD Duran aware. 2353: Pt continues to c/o feeling overheated despite poor temp readings. Taking off jimena hugger and warm blankets applied by this RN as soon as she is alone in room. Education provided repeatedly. Reinforcement needed d/t poor attention and concentration.
[2024-08-19] VITALS (224 sets, daily range): BP systolic 102–160; BP diastolic 67–99; PULSE 42–106; RESP 12–28; TEMP 35.5–36.8; O2SAT 84–100
--- NOTE | 2024-08-19 00:39 | NUR.NOTE ---
@0039 pt refusing re-warming attempts by this RN. Education offered but pt not receptive. States 'I'm too hot and there's no way in hell you're putting more blankets or anything else on me'. MD Jin updated and aware.
[2024-08-19] MEDS: POTASSIUM CHLORIDE/0.9% NACL 1,000 ML 125 MEQ IV ×2 (01:48→13:42)
[2024-08-19] MEDS: Enoxaparin 40 MG/0.4 ML SYR SC (01:49)
[2024-08-19] MEDS: Insulin Aspart 300 UNITS/3 ML PEN SC ×4 (01:49→23:32)
[2024-08-19] MEDS: Oseltamivir 75 MG CAP PO ×3 (01:50→20:01)
--- NOTE | 2024-08-19 04:53 | W.EDPROG ---
Date of service: 08/19/24 Time of Service: 00:30 Medical Decision Making Quality:SDOH Health Related Social Needs: No Data to Display Exam Narrative Exam Narrative: Hospitalist caring for patient requested tonometry reading. IOP: R: 18 L: 20 Discharge Plan Disposition Patient Disposition: Admit to [facility] Condition: Stable Discharge Details Clinical Impression: Hypokalemia, Abscess of face, MRSA (methicillin resistant staph aureus) culture positive, Influenza A, Hypothermia Primary Care Provider: [place],Local ED Provider: Loren Duran [place] Meds and New Rx's Prescriptions: No Action alprazolam [Xanax] 1 mg tablet 1 mg PO QID clonazepam [Klonopin] 1 mg tablet 1 mg PO DAILY aripiprazole [Abilify] 10 mg tablet 10 mg PO DAILY dextroamphetamine-amphetamine [Adderall XR] 20 mg capsule,extended release 24hr 20 mg PO TID citalopram 40 mg tablet 40 mg PO DAILY
[2024-08-19 05:59] LABS: HCT 41.2 % (36.0-46.0); HGB 13.3 g/dL (11.2-15.7); MCHC 32.3 % (32.0-36.0); MCV 90 fL (80-95); MPV 10.6 fL (8.0-11.0); Platelet Count 352 10^3/uL (130-400); RBC 4.58 10^6/uL (3.93-5.22); RDW-SD 40.2 fL; WBC 15.97 10^3/uL (4.4-10.8)
[2024-08-19 06:19] LABS: Hemoglobin A1C 9.3 % (<5.7)
[2024-08-19 06:28] LABS: ALT 30 U/L (14-59); AST 14 U/L (15-37); Albumin 3.7 g/dL (3.4-5.0); Alkaline Phosphatase 105 U/L (46-116); Anion Gap 9.5 mmol/L (3-11); BUN 9 mg/dL (7-18); Bilirubin, Total 0.3 mg/dL (0.2-1.0); CO2 26.5 mmol/L (21.0-32.0); CREATININE 0.9 mg/dL (0.55-1.02); Calcium 8.9 mg/dL (8.5-10.1); Chloride 105 mmol/L (98-107); Estimated GFR 82.37 (mL/min/1.73m2); Glucose 184 mg/dL (74-106); Magnesium 1.9 mg/dL (1.8-2.4); Potassium 4.7 mmol/L (3.5-5.1); Sodium 141 mmol/L (136-145); Total Protein 7.9 g/dL (6.4-8.2)
[2024-08-19] MEDS: VANCOMYCIN/WATER (PEG) 1 GM/200 ML BAG IV ×2 (08:27→20:00)
[2024-08-19] MEDS: cefTRIAXone 2 GM/50 ML BAG IVPB (08:45)
[2024-08-19] MEDS: Normal Saline Flush 10 ML SYR IVP ×3 (08:47→20:01)
[2024-08-19] MEDS: Ondansetron 4 MG/2 ML VIAL IVP (08:49)
--- NOTE | 2024-08-19 09:48 | W.PC.ACHO ---
Registration Status: Primary Language: Preferred Language: ED Information & Data Chief Complaint GenMedical 08/18/24 19:59 Chief Complaint GenMedical 08/18/24 19:52 Triage Note Cold sweat, confusion, 08/18/24 19:28 weakness, fatigue, unable to sleep x 2 weeks. PT has known MRSA infection on the R side of her lower lip reports she has been getting treated for it for the past 4 days. PT prescribed anti- biotics that are not helping Most Recent Vital Signs Temperature 36.3 C L 08/19/24 06:59 Temperature Source Oral 08/19/24 06:59 Pulse 80 08/19/24 08:12 Pulse 79 08/19/24 04:50 Respiratory Rate 12 08/19/24 06:59 Respiratory Effort Normal, Non-Labored 08/19/24 05:00 Respiratory Depth Normal 08/19/24 05:00 Respiratory Pattern Normal 08/19/24 05:00 Blood Pressure 160/99 H 08/19/24 08:12 Blood Pressure Mean 119 08/19/24 08:12 Blood Pressure Position Sitting 08/19/24 08:12 Pulse Oximetry 97 08/19/24 08:12 Respiratory End-tidal CO2 45 08/19/24 07:40 Oxygen Delivery Method Nasal Cannula 08/19/24 08:12 Oxygen Flow Rate 2 08/19/24 08:12 Pain Level 0 08/19/24 08:12 Allergies No Known Allergies Allergy (Unverified 08/11/24 17:00) Precautions Isolation Standard precaution 08/18/24 19:59 Active Medications Generic Name Dose Route Start Last Admin Trade Name Freq PRN Reason Stop Dose Admin Potassium Chloride/Sodium Chloride 1,000 mls @ 125 mls/hr 08/19/24 00:56 08/19/24 01:48 Kcl 20meq/Ns IV 125 mls/hr INFUSION SCOTT Administration Ceftriaxone Sodium/Dextrose 2 gm in 50 mls @ 100 mls/hr 08/19/24 08:30 08/19/24 08:45 Rocephin IVPB 100 mls/hr DAILY SCOTT Administration Vancomycin/PEG/NADA/Lysine/Water 1 gm in 200 mls @ 200 mls/hr 08/19/24 08:30 08/19/24 08:27 Vancocin Injection IV 200 mls/hr Q12H SCOTT Administration Insulin Aspart 0 units 08/19/24 08:00 08/19/24 08:10 Insulin Aspart 300 Units/3 Ml Pen SC 1 unit 0800,1200,1700,2200 SCOTT Administration Protocol Ondansetron HCl 4 mg 08/19/24 08:37 08/19/24 08:49 Ondansetron 4 Mg/2 Ml Vial IVP 4 mg Q8H PRN PRN Administration Oseltamivir Phosphate 75 mg 08/19/24 08:30 08/19/24 08:45 Oseltamivir 75 Mg Cap PO 75 mg BID SCOTT Administration Sodium Chloride 0 ml 08/18/24 19:44 08/19/24 08:47 Normal Saline Flush 10 Ml Syr IVP 10 ml PRN PRN Administration Sodium Chloride 0 ml 08/18/24 20:00 08/19/24 08:32 Normal Saline Flush 10 Ml Syr IVP Not Given BID SCOTT IV IV Catheter Type [Left Saline Lock Antecubital] IV Catheter Type [Right Saline Lock Antecubital] IV Catheter Gauge [Left 18 Antecubital] IV Catheter Gauge [Right 18 Antecubital] Diet Orders Category Date Time Status Diabetes Consistent CHO/Low Na [DIET] Nutrition 08/19/24 Breakfast Active Diagnostics 08/19/24 08/19/24 08/19/24 Range/Units 05:35 05:32 05:28 WBC 15.97 H (4.4-10.8) 10^3/uL RBC 4.58 (3.93-5.22) 10^6/uL Hgb 13.3 (11.2-15.7) g/dL Hct 41.2 (36.0-46.0) % MCV 90 (80-95) fL MCH 29.0 (27.0-33.0) pg MCHC 32.3 (32.0-36.0) % RDW 12.0 (11.7-14.6) % Plt Count 352 (130-400) 10^3/uL MPV 10.6 (8.0-11.0) fL Immature Gran % % Neutrophils % % Lymphocytes % % Monocytes % % Eosinophils % % Basophils % % Nucleated RBC % (0.0-0.3) % Absolute Neutrophils (1.2-6.7) 10^3/uL Absolute Lymphocytes (1.2-3.4) 10^3/uL Absolute Monocytes (0.1-0.8) 10^3/uL Absolute Eosinophils (0.0-0.7) 10^3/uL Absolute Basophils (0.0-0.2) 10^3/uL VBG Lactate (<or=2.0) mmol/L Sodium 141 (136-145) mmol/L Potassium 4.7 D (3.5-5.1) mmol/L Chloride 105 (98-107) mmol/L Carbon Dioxide 26.5 (21.0-32.0) mmol/L Anion Gap 9.5 (3-11) mmol/L BUN 9 (7-18) mg/dL Creatinine 0.9 (0.55-1.02) mg/dL Est GFR (CKD-EPI 2020) 82.37 (mL/min/1.73m2) Glucose 184 H (74-106) mg/dL Hemoglobin A1c 9.3 H (<5.7) % Calcium 8.9 (8.5-10.1) mg/dL Magnesium Cancelled 1.9 (1.8-2.4) mg/dL Total Bilirubin 0.3 (0.2-1.0) mg/dL AST 14 L (15-37) U/L ALT 30 (14-59) U/L Alkaline Phosphatase 105 (46-116) U/L Troponin I (<or=51) ng/L Total Protein 7.9 (6.4-8.2) g/dL Albumin 3.7 (3.4-5.0) g/dL Lipase (<78) U/L TSH 3.50 Serum HCG, Qual Urine Color (Yellow) Urine Clarity (Clear) Urine pH (5-8) Ur Specific [place] (1.005-1.025) Urine Protein (Neg-Trace) mg/dL Urine Ketones (Negative) mg/dL Urine Blood (Negative) Urine Nitrite (Negative) Urine Bilirubin (Negative) Urine Urobilinogen (Up to 0.2) mg/dL Ur Leukocyte Esterase (Negative) Urine RBC (0-2) HPF Urine WBC (0-5) HPF Ur Epithelial Cells (Negative) HPF Urine Crystals (Negative) HPF Urine Bacteria (Negative) HPF Urine Casts (Negative) LPF Urine Mucus (Negative) Ur Culture Indicated? Urine Glucose (Negative) mg/dL Urine Opiates Screen (Negative) Ur Buprenorphine Pending Ur Norbuprenorphine Pending Ur Oxycodone Screen Pending Urine Methadone Screen (Negative) Urine Fentanyl Screen Pending Ur Barbiturates Screen (Negative) Ur Tricyclics Screen (Negative) Ur Amphetamines Screen (Negative) U Benzodiazepines Scrn (Negative) Urine Cocaine Screen (Negative) Ur THC Screen (Negative) Ethyl Alcohol (<10) mg/dL Urine Xylazine Pending COVID-19 Source SARS-CoV-2 (PCR) (Negative) Influenza Type A (PCR) (Negative) Influenza Type B (PCR) (Negative) RSV (PCR) (Negative) 08/19/24 08/18/24 08/18/24 Range/Units 00:51 22:44 21:00 WBC (4.4-10.8) 10^3/uL RBC (3.93-5.22) 10^6/uL Hgb (11.2-15.7) g/dL Hct (36.0-46.0) % MCV (80-95) fL MCH (27.0-33.0) pg MCHC (32.0-36.0) % RDW (11.7-14.6) % Plt Count (130-400) 10^3/uL MPV (8.0-11.0) fL Immature Gran % % Neutrophils % % Lymphocytes % % Monocytes % % Eosinophils % % Basophils % % Nucleated RBC % (0.0-0.3) % Absolute Neutrophils (1.2-6.7) 10^3/uL Absolute Lymphocytes (1.2-3.4) 10^3/uL Absolute Monocytes (0.1-0.8) 10^3/uL Absolute Eosinophils (0.0-0.7) 10^3/uL Absolute Basophils (0.0-0.2) 10^3/uL VBG Lactate (<or=2.0) mmol/L Sodium (136-145) mmol/L Potassium (3.5-5.1) mmol/L Chloride (98-107) mmol/L Carbon Dioxide (21.0-32.0) mmol/L Anion Gap (3-11) mmol/L BUN (7-18) mg/dL Creatinine (0.55-1.02) mg/dL Est GFR (CKD-EPI 2020) (mL/min/1.73m2) Glucose (74-106) mg/dL Hemoglobin A1c (<5.7) % Calcium (8.5-10.1) mg/dL Magnesium (1.8-2.4) mg/dL Total Bilirubin (0.2-1.0) mg/dL AST (15-37) U/L ALT (14-59) U/L Alkaline Phosphatase (46-116) U/L Troponin I Cancelled (<or=51) ng/L Total Protein (6.4-8.2) g/dL Albumin (3.4-5.0) g/dL Lipase (<78) U/L TSH Cancelled Serum HCG, Qual Urine Color Yellow (Yellow) Urine Clarity Clear (Clear) Urine pH 5.5 (5-8) Ur Specific [place] >= 1.030 H (1.005-1.025) Urine Protein 100 H (Neg-Trace) mg/dL Urine Ketones Negative (Negative) mg/dL Urine Blood Negative (Negative) Urine Nitrite Negative (Negative) Urine Bilirubin Negative (Negative) Urine Urobilinogen 0.2 (Up to 0.2) mg/dL Ur Leukocyte Esterase Negative (Negative) Urine RBC 0-2 (0-2) HPF Urine WBC 0-2 (0-5) HPF Ur Epithelial Cells Moderate (Negative) HPF Urine Crystals Negative (Negative) HPF Urine Bacteria Moderate (Negative) HPF Urine Casts 0-2 Hyaline (Negative) LPF Urine Mucus Moderate (Negative) Ur Culture Indicated? No Urine Glucose Negative (Negative) mg/dL Urine Opiates Screen Negative (Negative) Ur Buprenorphine Ur Norbuprenorphine Ur Oxycodone Screen Urine Methadone Screen Positive A (Negative) Urine Fentanyl Screen Ur Barbiturates Screen Negative (Negative) Ur Tricyclics Screen Negative (Negative) Ur Amphetamines Screen Positive A (Negative) U Benzodiazepines Scrn Positive A (Negative) Urine Cocaine Screen Negative (Negative) Ur THC Screen Positive A (Negative) Ethyl Alcohol (<10) mg/dL Urine Xylazine COVID-19 Source SARS-CoV-2 (PCR) (Negative) Influenza Type A (PCR) (Negative) Influenza Type B (PCR) (Negative) RSV (PCR) (Negative) 08/18/24 08/18/24 08/18/24 Range/Units 20:46 20:00 19:55 WBC 13.15 H (4.4-10.8) 10^3/uL RBC 4.60 (3.93-5.22) 10^6/uL Hgb 13.5 (11.2-15.7) g/dL Hct 40.6 (36.0-46.0) % MCV 88 (80-95) fL MCH 29.3 (27.0-33.0) pg MCHC 33.3 (32.0-36.0) % RDW 11.9 (11.7-14.6) % Plt Count 341 (130-400) 10^3/uL MPV 10.2 (8.0-11.0) fL Immature Gran % 0.5 % Neutrophils % 61.3 % Lymphocytes % 30.9 % Monocytes % 6.2 % Eosinophils % 0.8 % Basophils % 0.3 % Nucleated RBC % 0.0 (0.0-0.3) % Absolute Neutrophils 8.06 H (1.2-6.7) 10^3/uL Absolute Lymphocytes 4.06 H (1.2-3.4) 10^3/uL Absolute Monocytes 0.82 H (0.1-0.8) 10^3/uL Absolute Eosinophils 0.11 (0.0-0.7) 10^3/uL Absolute Basophils 0.04 (0.0-0.2) 10^3/uL VBG Lactate 2.0 (<or=2.0) mmol/L Sodium 140 (136-145) mmol/L Potassium 3.1 L (3.5-5.1) mmol/L Chloride 100 (98-107) mmol/L Carbon Dioxide 28.1 (21.0-32.0) mmol/L Anion Gap 11.9 H (3-11) mmol/L BUN 9 (7-18) mg/dL Creatinine 1.1 H (0.55-1.02) mg/dL Est GFR (CKD-EPI 2020) 64.74 (mL/min/1.73m2) Glucose 239 H (74-106) mg/dL Hemoglobin A1c (<5.7) % Calcium 9.8 (8.5-10.1) mg/dL Magnesium 1.8 (1.8-2.4) mg/dL Total Bilirubin 0.3 (0.2-1.0) mg/dL AST 14 L (15-37) U/L ALT 29 (14-59) U/L Alkaline Phosphatase 103 (46-116) U/L Troponin I < 4 4 (<or=51) ng/L Total Protein 8.3 H (6.4-8.2) g/dL Albumin 4.1 (3.4-5.0) g/dL Lipase 28 (<78) U/L TSH Serum HCG, Qual Negative Urine Color (Yellow) Urine Clarity (Clear) Urine pH (5-8) Ur Specific [place] (1.005-1.025) Urine Protein (Neg-Trace) mg/dL Urine Ketones (Negative) mg/dL Urine Blood (Negative) Urine Nitrite (Negative) Urine Bilirubin (Negative) Urine Urobilinogen (Up to 0.2) mg/dL Ur Leukocyte Esterase (Negative) Urine RBC (0-2) HPF Urine WBC (0-5) HPF Ur Epithelial Cells (Negative) HPF Urine Crystals (Negative) HPF Urine Bacteria (Negative) HPF Urine Casts (Negative) LPF Urine Mucus (Negative) Ur Culture Indicated? Urine Glucose (Negative) mg/dL Urine Opiates Screen (Negative) Ur Buprenorphine Ur Norbuprenorphine Ur Oxycodone Screen Urine Methadone Screen (Negative) Urine Fentanyl Screen Ur Barbiturates Screen (Negative) Ur Tricyclics Screen (Negative) Ur Amphetamines Screen (Negative) U Benzodiazepines Scrn (Negative) Urine Cocaine Screen (Negative) Ur THC Screen (Negative) Ethyl Alcohol < 3.0 (<10) mg/dL Urine Xylazine COVID-19 Source Nasopharynx SARS-CoV-2 (PCR) Negative (Negative) Influenza Type A (PCR) Positive A (Negative) Influenza Type B (PCR) Negative (Negative) RSV (PCR) Negative (Negative) 08/18/24 19:41 Wound Culture - Pending Face - Right Gram Stain - Final 08/18/24 19:58 Blood Culture - Pending Blood 08/18/24 19:55 Blood Culture - Pending Blood [id number] Documentation Fingerstick Glucose Start: 08/19/24 00:52 Freq: Status: Complete Protocol: Activity Type Activity Date Activity User E-sign Co-sign Detail Recorded Client Recorded Date Recorded By Document 08/19/24 00:51 BKG DAEMON(5) [id number] 08/19/24 00:52 BKG DAEMON(6) Fingerstick Glucose Start: 08/19/24 00:56 Freq: .Stat Status: Active Protocol: Activity Type Activity Date Activity User E-sign Co-sign Detail Recorded Client Recorded Date Recorded By Document 08/19/24 01:49 LB [id number] 08/19/24 06:15 LB Fingerstick Glucose Start: 08/19/24 00:56 Freq: AC & HS Status: Active Protocol: Activity Type Activity Date Activity User E-sign Co-sign Detail Recorded Client Recorded Date Recorded By Document 08/19/24 07:59 BKG DAEMON(7) [id number] 08/19/24 08:01 BKG DAEMON(8) Intake and Output - 24 Hour Total 08/18/24 19:15 thru 08/18/24 23:32 Intake Total 1550 Balance 1550 Weight 89.811 kg Intake: IV 1550 Falls Risk Assessment History of Falls No History 08/18/24 19:59 Contributing Factors No Factors 08/18/24 19:59 Ambulatory Aids Independent 08/18/24 19:59 Tubes/Lines None 08/18/24 19:59 Gait Evaluation No gait disturbance 08/18/24 19:59 Cognition No cognitive impairment 08/18/24 19:59 Fall Total Score 0 08/18/24 19:59 Level of Risk Standard/Low Risk 08/18/24 19:59 Problems (Last Reviewed 08/19/24 @ 06:33 by Yomi Jin) Drug use disorder (Acute) Depression with anxiety (Chronic) ADHD (attention deficit hyperactivity disorder) (Chronic) Type 2 diabetes mellitus (Chronic) Orbital fracture (Acute) Hypothermia (Acute) Abscess of face (Acute) Hypokalemia (Acute) Influenza A (Acute) Notes 08/19/24 00:39 Nursing Notes by Tiarra Fraga @0039 pt refusing re-warming attempts by this RN. Education offered but pt not receptive. States 'I'm too hot and there's no way in hell you're putting more blankets or anything else on me'. MD Jin updated and aware. Initialized on 08/19/24 00:39 - END OF NOTE 08/18/24 23:51 Nursing Notes by Tiarra Fraga Nursing Note: @2119 1L NS from IV fluid warmer administered d/t rectal temp of 34C. Mattie Hugger also applied on max temp. Pt not tolerating well. C/o already feeling 'way too hot' despite skin being cold and clammy to the touch. MD Duran aware. 2353: Pt continues to c/o feeling overheated despite poor temp readings. Taking off mattie hugger and warm blankets applied by this RN as soon as she is alone in room. Education provided repeatedly. Reinforcement needed d/t poor attention and concentration. Initialized on 08/18/24 23:51 - END OF NOTE v v v v v v v v v Sending and/or Receiving Nurses: Please use comment section below to note any information pertinent to the patient hand-off not included above. Information / Comments: Report received from:SAMEER RN (ED) - SBAR report, all questions answered
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
[2024-08-19] MEDS: Pantoprazole 40 MG VIAL IVP (11:17)
[2024-08-19] MEDS: Metoclopramide 10 MG/2 ML VIAL IVP (11:17)
[2024-08-19] MEDS: Citalopram 20 MG TAB 40 MG PO (12:35)
[2024-08-19] MEDS: ARIPiprazole 5 MG TAB 10 MG PO (12:35)
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
[2024-08-20] MEDS: POTASSIUM CHLORIDE/0.9% NACL 1,000 ML 125 MEQ IV (03:20)
[2024-08-20 04:09] VITALS: BP 126/77; PULSE 85; RESP 20; TEMP 36.6; O2SAT 95
[2024-08-20] MEDS: Acetaminophen 325 MG TAB PO (04:24)
[2024-08-20] MEDS: Prochlorperazine 10 MG/2 ML VIAL IVP ×2 (04:31→10:50)
[2024-08-20] MEDS: Normal Saline Flush 10 ML SYR IVP ×2 (04:32→10:51)
[2024-08-20 06:50] LABS: HCT 35.2 % (36.0-46.0); HGB 11.3 g/dL (11.2-15.7); MCH 29.2 pg (27.0-33.0); MCHC 32.1 % (32.0-36.0); MCV 91 fL (80-95); MPV 10.3 fL (8.0-11.0); Platelet Count 301 10^3/uL (130-400); RBC 3.87 10^6/uL (3.93-5.22); RDW 12.1 % (11.7-14.6); RDW-SD 40.5 fL; WBC 10.05 10^3/uL (4.4-10.8)
[2024-08-20 07:06] LABS: ALT 28 U/L (14-59); AST 16 U/L (15-37); Albumin 3.3 g/dL (3.4-5.0); Alkaline Phosphatase 92 U/L (46-116); Anion Gap 5.1 mmol/L (3-11); BUN 6 mg/dL (7-18); Bilirubin, Total 0.3 mg/dL (0.2-1.0); CO2 27.9 mmol/L (21.0-32.0); CREATININE 0.8 mg/dL (0.55-1.02); Calcium 8.5 mg/dL (8.5-10.1); Chloride 102 mmol/L (98-107); Estimated GFR 94.87 (mL/min/1.73m2); Glucose 182 mg/dL (74-106); Magnesium 1.7 mg/dL (1.8-2.4); Potassium 4.3 mmol/L (3.5-5.1); Sodium 135 mmol/L (136-145); Total Protein 6.8 g/dL (6.4-8.2)
[2024-08-20 07:45] VITALS: BP 129/84; PULSE 82; RESP 15; TEMP 36.6; O2SAT 94
[2024-08-20] MEDS: cefTRIAXone 2 GM/50 ML BAG IVPB (08:48)
[2024-08-20] MEDS: ARIPiprazole 5 MG TAB 10 MG PO (08:49)
[2024-08-20] MEDS: Oseltamivir 75 MG CAP PO (08:49)
[2024-08-20] MEDS: Citalopram 20 MG TAB 40 MG PO (08:50)
[2024-08-20] MEDS: Insulin Aspart 300 UNITS/3 ML PEN SC ×2 (08:51→12:04)
[2024-08-20] MEDS: Enoxaparin 40 MG/0.4 ML SYR SC (08:55)
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
--- NOTE | 2024-08-20 09:16 | NUR.NOTE ---
patient very agitated at this time, wants to leave AMA. Primary nurse last notified to contact provider to see the patient. Nursing Note:
--- NOTE | 2024-08-20 10:47 | PGE_ITS ---
Date of Service Date of service: 08/20/24 Time of Service: 10:47 Assessment and Plan Assessment and plan (1) Abscess of face: Status: Acute Assessment and plan: Today, patient is awake and alert, she is not perseverating on various articles of clothing, as per yesterday. She does not appear confused. She very clearly indicates she does not desire surgery for the abscess, and she thinks it is improving. I will continue to follow her while she is here. Recommended she continue to apply warm compresses to the site. If she is planned for discharge, I recommend giving her doxycycline, 100 mg twice daily for 10 days. Subjective Subjective Interval history since last seen: Patient relating that she is less anxious today. She indicates that the pain in her right mandibular region is improving at the site of the abscess. Exam Narrative Exam Narrative: Examined patient today with her nurse present as an assistant auto center manager. Patient has an abscess in the right mandibular region, just lateral to the mental process, the abscess measures about 3 x 2 cm, is multiloculated, visibly characteristic with a MRSA infection. The abscess is spontaneously draining, has some areas of dry ulceration superficially. Objective Last Vital Signs Temp 36.6 C 08/20/24 07:45 Pulse 82 08/20/24 07:45 Resp 15 08/20/24 07:45 BP 129/84 08/20/24 07:45 Pulse Ox 94 08/20/24 07:45 Laboratory Results - last 24 hr 08/20/24 08/20/24 06:23 06:23 WBC 10.05 RBC 3.87 L Hgb 11.3 D Hct 35.2 L MCV 91 MCH 29.2 MCHC 32.1 RDW 12.1 Plt Count 301 MPV 10.3 Sodium 135 L Potassium 4.3 Chloride 102 Carbon Dioxide 27.9 Anion Gap 5.1 BUN 6 L Creatinine 0.8 Est GFR (CKD-EPI 2020) 94.87 Glucose 182 H Calcium 8.5 Magnesium 1.7 L Cancelled Total Bilirubin 0.3 AST 16 ALT 28 Alkaline Phosphatase 92 Total Protein 6.8 Albumin 3.3 L Time Spent with Patient Time Spent with Patient: <25 minutes Time was spent: preparing to see the patient(eg.review tests) and obtaining and/or reviewing separately astrid rice
[2024-08-20] MEDS: VANCOMYCIN/WATER (PEG) 1 GM/200 ML BAG IV (11:03)
[2024-08-20 11:21] VITALS: BP 130/93; PULSE 86; RESP 16; TEMP 36.3; O2SAT 94
[2024-08-20 12:05] LABS: Fentanyl Scr w/Rfx Confirm Negative ng/mL (<1)
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
--- NOTE | 2024-08-20 14:06 | NUR.NOTE ---
Nursing Note: Documentation by Bright Almeida reviewed.
--- NOTE | 2024-08-20 15:53 | CMDISCH_ITS ---
Date of service: 08/20/24 Time of Service: 15:53 LACE Index Scoring Tool Questions: Length of Stay (in days): 1 Was the patient admitted via the E.D.?: Yes Comorbidities: Diabetes w/o Complication E.D. Visits: 4 Answers: Total Score: 9 Risk of Readmission: Low Risk Care Management Discharge Plan Reason for Hospitalization: pneumonia, cellulitis Discharge Plan: Milagros made the decision to leave the hospital against medical advice. She was given antibiotics for her infection and advised to follow up with her community providers. Patient/Family Education Needs: importance of following plan of care SDOH Health Related Social Needs: Health related social needs inadequate housing (Z59.1) , food insecurity (Z59.41), transportation insecurity (Z59.82), material hardship(utilities) (Z59.12), problems related to housing/economic circumstances (Z59.89), feeling lonely/isolated (Z60.8) Health related social needs details - Health related social needs details: -
[2024-08-21 16:14] LABS: Oxycodone Screen, U Negative ng/mL (Cutoff: 100)
[2024-08-23 11:11] LABS: Xylazine, Confirmation Urine Negative ng/mL (<50)
[2024-08-26 08:10] LABS: Buprenorphine Negative ng/mL (Cutoff: 5.0); Norbuprenorphine Negative ng/mL (Cutoff: 2.5)
== END 2024-08-20 12:44 | disposition left against medical advice (07) | DRG 603 ==
LOC: ER 08-19 04:00 → EDHOLD 08-19 05:00 → MS 08-19 10:06
PROVIDERS: Admitting Provider Family Medicine; Emergency Provider Emergency Medicine Emergency Medical Services; Responsible Provider Nurse Practitioner Acute Care; Visit Provider Family Medicine
DX: L02.01 Cutaneous abscess of face (principal); R78.81 Bacteremia; T76.11XA Adult physical abuse, suspected, initial encounter; Z59.19 Other inadequate housing; F19.10 Other psychoactive substance abuse, uncomplicated; T40.3X1A Poisoning by methadone, accidental (unintentional), initial encounter; J10.1 Influenza due to other identified influenza virus with other respiratory manifestations; S02.832A Fracture of medial orbital wall, left side, initial encounter for closed fracture; E11.9 Type 2 diabetes mellitus without complications; F41.8 Other specified anxiety disorders; F98.8 Other specified behavioral and emotional disorders with onset usually occurring in childhood and adolescence; R11.2 Nausea with vomiting, unspecified; T68.XXXA Hypothermia, initial encounter; E87.6 Hypokalemia; B95.62 Methicillin resistant Staphylococcus aureus infection as the cause of diseases classified elsewhere; F17.290 Nicotine dependence, other tobacco product, uncomplicated; E66.9 Obesity, unspecified; Z68.38 Body mass index [BMI] 38.0-38.9, adult; F13.90 Sedative, hypnotic, or anxiolytic use, unspecified, uncomplicated; F43.10 Post-traumatic stress disorder, unspecified; F15.90 Other stimulant use, unspecified, uncomplicated; R41.82 Altered mental status, unspecified
CPT/HCPCS: 00123; 36415; 36416; 80053; 80307; 80348; 80375; 82962; 83690; 85027; 87040; 87077; 87637; 93005; 96361; 96365; 96366; 96367; 96372; 96376; 99222; 99231; 99285; J1650; 70450; 70487; 71045; 72125; 80320; 81003; 81015; 83036; 83605; 83735; 84443; 84484; 84703; 85025; 87070; 87205; 93010; 94667; 99223; 99239; J0696; J0780; J1815; J2405; J2470; J2765; J3370; J3372; J3490

== ENCOUNTER 2024-08-21 17:01 | Inpatient (IN) | payer MEDICARE, SELFPAY ==
[2024-08-21 17:03] VITALS: BP 152/94; PULSE 118; RESP 22; TEMP 37.1; O2SAT 98
[2024-08-21 17:10] VITALS: BP 152/94; PULSE 118; RESP 22; TEMP 37.1; O2SAT 98
[2024-08-21 17:48] LABS: Abs Immature Grans 0.04 10^3/uL (0.0-0.06); Absolute Basophil Count 0.02 10^3/uL (0.0-0.2); Absolute Eosinophil Count 0.11 10^3/uL (0.0-0.7); Absolute Lymphocyte Count 2.88 10^3/uL (1.2-3.4); Absolute Neutrophil Count 5.19 10^3/uL (1.2-6.7); Basophils % 0.2 %; Eosinophils % 1.2 %; HCT 36.5 % (36.0-46.0); HGB 12.1 g/dL (11.2-15.7); Immature Grans % 0.4 %; Lactate 2.7 mmol/L (<or=2.0); Lymphocytes % 31.9 %; MCH 29.2 pg (27.0-33.0); MCHC 33.2 % (32.0-36.0); MCV 88 fL (80-95); Monocytes % 8.8 %; Neutrophils % 57.5 %; Platelet Count 336 10^3/uL (130-400); RBC 4.15 10^6/uL (3.93-5.22); RDW 11.7 % (11.7-14.6); RDW-SD 37.6 fL; WBC 9.04 10^3/uL (4.4-10.8)
[2024-08-21] MEDS: Lactated Ringers 1,000 ML 1000 ML IV (17:58)
[2024-08-21 18:07] LABS: ALT 30 U/L (14-59); AST 19 U/L (15-37); Albumin 3.5 g/dL (3.4-5.0); Alkaline Phosphatase 97 U/L (46-116); Anion Gap 7.6 mmol/L (3-11); BUN 5 mg/dL (7-18); Bilirubin, Total 0.2 mg/dL (0.2-1.0); CO2 30.4 mmol/L (21.0-32.0); CREATININE 0.8 mg/dL (0.55-1.02); Calcium 9.2 mg/dL (8.5-10.1); Chloride 100 mmol/L (98-107); Estimated GFR 94.87 (mL/min/1.73m2); Glucose 188 mg/dL (74-106); Potassium 3.6 mmol/L (3.5-5.1); Sodium 138 mmol/L (136-145); Total Protein 7.4 g/dL (6.4-8.2)
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
[2024-08-21 18:19] LABS: Procalcitonin < 0.10 ng/mL
[2024-08-21 18:48] LABS: Bilirubin Negative (Negative); Blood Negative (Negative); Clarity Clear (Clear); Glucose Negative (Negative); Ketones Negative (Negative); Leukocyte Esterase Negative (Negative); Nitrite Negative (Negative); Specific Gravity 1.015 (1.005-1.025); Urobilinogen 0.2 mg/dL (Up to 0.2)
[2024-08-21 19:04] LABS: *AMPHETAMINES SCREEN URINE Positive (Negative); *BARBITURATES SCREEN URINE Negative (Negative); *BENZODIAZEPINES SCREEN URINE Positive (Negative); Cannabinoids THC Positive (Negative); Cocaine Screen,Urine Negative (Negative); METHADONE URINE SCREEN Negative (Negative); OPIATES URINE SCREEN Negative (Negative)
[2024-08-21 19:06] LABS: Tricyclic Antidepressants Negative (Negative)
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
[2024-08-21 20:35] VITALS: BP 148/100; PULSE 96; RESP 18; TEMP 36.8; O2SAT 99
--- NOTE | 2024-08-21 20:35 | W.PC.ACHO ---
Registration Status: Primary Language: Preferred Language: ED Information & Data Chief Complaint GenMedical 08/21/24 18:10 Triage Note signed herself out of the 08/21/24 17:03 hospital yesterday + for flu and MRSA. continues to feel sick, would like to continue treatment Medical / Surgical History (Last Reviewed 08/21/24 @ 19:43 by Vargas Ray) Depression with anxiety ADHD (attention deficit hyperactivity disorder) Most Recent Vital Signs Temperature 37.1 C 08/21/24 17:10 Pulse 118 H 08/21/24 17:10 Respiratory Rate 22 08/21/24 17:10 Respiratory Effort Normal 08/21/24 17:13 Respiratory Depth Normal 08/21/24 17:13 Respiratory Pattern Normal 08/21/24 17:13 Blood Pressure 152/94 H 08/21/24 17:10 Blood Pressure Position Sitting 08/21/24 17:10 Pulse Oximetry 98 08/21/24 17:10 Oxygen Delivery Method Room Air 08/21/24 17:10 Pain Level 0 08/21/24 17:10 Allergies No Known Allergies Allergy (Verified 08/21/24 17:06) Precautions Isolation Standard precaution 08/21/24 17:07 Active Medications Generic Name Dose Route Start Last Admin Trade Name Freq PRN Reason Stop Dose Admin Vancomycin HCl 1,800 mg/ 500 mls @ 333.3333 mls/hr 08/21/24 19:49 08/21/24 20:15 Sodium Chloride IVPB 08/21/24 21:18 333.3333 mls/hr STAT STA Administration IV IV Catheter Type [Right Saline Lock Forearm] IV Catheter Gauge [Right 20 Forearm] Diet Orders Category Date Time Status Regular/Normal [DIET] Nutrition 08/22/24 Breakfast Ordered Diagnostics 08/21/24 08/21/24 Range/Units 18:30 17:37 WBC 9.04 (4.4-10.8) 10^3/uL RBC 4.15 (3.93-5.22) 10^6/uL Hgb 12.1 (11.2-15.7) g/dL Hct 36.5 (36.0-46.0) % MCV 88 (80-95) fL MCH 29.2 (27.0-33.0) pg MCHC 33.2 (32.0-36.0) % RDW 11.7 (11.7-14.6) % Plt Count 336 (130-400) 10^3/uL MPV 10.0 (8.0-11.0) fL Immature Gran % 0.4 % Neutrophils % 57.5 % Lymphocytes % 31.9 % Monocytes % 8.8 % Eosinophils % 1.2 % Basophils % 0.2 % Nucleated RBC % 0.0 (0.0-0.3) % Absolute Neutrophils 5.19 (1.2-6.7) 10^3/uL Absolute Lymphocytes 2.88 (1.2-3.4) 10^3/uL Absolute Monocytes 0.80 (0.1-0.8) 10^3/uL Absolute Eosinophils 0.11 (0.0-0.7) 10^3/uL Absolute Basophils 0.02 (0.0-0.2) 10^3/uL VBG Lactate 2.7 H* (<or=2.0) mmol/L Sodium 138 (136-145) mmol/L Potassium 3.6 (3.5-5.1) mmol/L Chloride 100 (98-107) mmol/L Carbon Dioxide 30.4 (21.0-32.0) mmol/L Anion Gap 7.6 (3-11) mmol/L BUN 5 L (7-18) mg/dL Creatinine 0.8 (0.55-1.02) mg/dL Est GFR (CKD-EPI 2020) 94.87 (mL/min/1.73m2) Glucose 188 H (74-106) mg/dL Calcium 9.2 (8.5-10.1) mg/dL Total Bilirubin 0.2 (0.2-1.0) mg/dL AST 19 (15-37) U/L ALT 30 (14-59) U/L Alkaline Phosphatase 97 (46-116) U/L Total Protein 7.4 (6.4-8.2) g/dL Albumin 3.5 (3.4-5.0) g/dL Procalcitonin < 0.10 ng/mL Urine Color Yellow (Yellow) Urine Clarity Clear (Clear) Urine pH 7.0 (5-8) Ur Specific [place] 1.015 (1.005-1.025) Urine Protein Negative (Neg-Trace) mg/dL Urine Ketones Negative (Negative) mg/dL Urine Blood Negative (Negative) Urine Nitrite Negative (Negative) Urine Bilirubin Negative (Negative) Urine Urobilinogen 0.2 (Up to 0.2) mg/dL Ur Leukocyte Esterase Negative (Negative) Urine Glucose Negative (Negative) mg/dL Urine Opiates Screen Negative (Negative) Urine Methadone Screen Negative (Negative) Ur Barbiturates Screen Negative (Negative) Ur Tricyclics Screen Negative (Negative) Ur Amphetamines Screen Positive A (Negative) U Benzodiazepines Scrn Positive A (Negative) Urine Cocaine Screen Negative (Negative) Ur THC Screen Positive A (Negative) Intake and Output - 24 Hour Total 08/21/24 17:01 thru 08/21/24 19:13 Intake Total 1010 Balance 1010 Weight 90.718 kg Intake: IV 1010 Falls Risk Assessment Contributing Factors No Factors 08/21/24 17:10 Fall Total Score 0 08/21/24 17:10 Level of Risk Standard/Low Risk 08/21/24 17:10 Problems (Last Reviewed 08/21/24 @ 19:43 by Vargas Ray) Gram-positive bacteremia (Acute) Drug use disorder (Acute) Type 2 diabetes mellitus (Chronic) Orbital fracture (Acute) Abscess of face (Acute) Influenza A (Acute) v v v v v v v v v Sending and/or Receiving Nurses: Please use comment section below to note any information pertinent to the patient hand-off not included above. Information / Comments:NM 43 yo Female readmit for abcess to lip , MRSA and Flu +, DM type II. Lac rt foot on pinky toe, admit tonmed/surg unit rm #[id number]. Report received from:Javier Stephenson ED RN , 08/21/24 @ [id number]
[2024-08-21 21:05] VITALS: BP 148/100; PULSE 96; RESP 18; TEMP 36.8; O2SAT 99
[2024-08-21] MEDS: ALPRAZolam 0.5 MG TAB 1 MG PO (22:51)
[2024-08-21] MEDS: Enoxaparin 40 MG/0.4 ML SYR SC (22:52)
[2024-08-22] MEDS: Senna TAB 1 TAB PO (03:27)
[2024-08-22] MEDS: Acetaminophen 325 MG TAB PO (03:27)
[2024-08-22] MEDS: Polyethylene Glycol 3350 17 GM PACKET PO (03:27)
[2024-08-22 07:40] LABS: Lactate 1.4 mmol/L (<or=2.0)
[2024-08-22 07:52] LABS: Anion Gap 6.1 mmol/L (3-11); BUN 5 mg/dL (7-18); CO2 30.9 mmol/L (21.0-32.0); CREATININE 0.8 mg/dL (0.55-1.02); Calcium 8.5 mg/dL (8.5-10.1); Chloride 103 mmol/L (98-107); Estimated GFR 94.87 (mL/min/1.73m2); Glucose 224 mg/dL (74-106); Potassium 3.6 mmol/L (3.5-5.1); Sodium 140 mmol/L (136-145)
[2024-08-22 08:01] VITALS: BP 125/86; PULSE 79; RESP 20; TEMP 36.6; O2SAT 97
[2024-08-22] MEDS: ARIPiprazole 5 MG TAB 10 MG PO (08:24)
[2024-08-22] MEDS: ALPRAZolam 0.5 MG TAB 1 MG PO (08:24)
[2024-08-22] MEDS: Citalopram 20 MG TAB 40 MG PO (08:24)
[2024-08-22] MEDS: metFORMIN C.R. 500 MG TABCR PO (08:24)
[2024-08-22] MEDS: clonazePAM 1 MG TAB PO (08:24)
[2024-08-22] MEDS: Insulin Aspart 300 UNITS/3 ML PEN SC (08:24)
[2024-08-22] MEDS: Normal Saline Flush 10 ML SYR IVP (08:40)
[2024-08-22] MEDS: VANCOMYCIN 1,250 MG in Normal Saline 250 ML 166.667 MG IVPB (08:40)
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
[2024-08-22] MEDS: DALBAVANCIN 1,500 MG in DEXTROSE 5%-WATER 325 ML 650 MG IVPB (12:30)
== END 2024-08-22 15:21 | disposition home or self-care (01) | DRG 872 ==
LOC: ER 19:58 → MS 20:30
PROVIDERS: Admitting Provider Family Medicine; Emergency Provider Student in an Organized Health Care Education/Training Program; Responsible Provider Nurse Practitioner Acute Care; Visit Provider Family Medicine
DX: L03.211 Cellulitis of face (principal); A41.9 Sepsis, unspecified organism; S02.832A Fracture of medial orbital wall, left side, initial encounter for closed fracture; L02.01 Cutaneous abscess of face; R65.20 Severe sepsis without septic shock; F41.8 Other specified anxiety disorders; F19.90 Other psychoactive substance use, unspecified, uncomplicated; J10.1 Influenza due to other identified influenza virus with other respiratory manifestations; E66.812 Obesity, class 2; Z68.36 Body mass index [BMI] 36.0-36.9, adult; B95.62 Methicillin resistant Staphylococcus aureus infection as the cause of diseases classified elsewhere; F17.290 Nicotine dependence, other tobacco product, uncomplicated; F12.90 Cannabis use, unspecified, uncomplicated; E11.65 Type 2 diabetes mellitus with hyperglycemia; Y04.2XXA Assault by strike against or bumped into by another person, initial encounter
CPT/HCPCS: 00123; 80048; 80053; 80307; 84145; J1650; 81003; 83605; 85025; 99222; 99239; J0875; J1815; J3370

== ENCOUNTER 2024-08-26 21:12 | Emergency (ER) | payer MEDICARE, SELFPAY ==
[2024-08-26 21:14] VITALS: BP 148/96; PULSE 106; RESP 16; TEMP 35.9; O2SAT 99
[2024-08-26 21:18] VITALS: BP 148/96; PULSE 106; RESP 16; TEMP 35.9; O2SAT 99
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
[2024-08-26] MEDS: predniSONE 20 MG TAB 60 MG PO (21:35)
[2024-08-26] MEDS: Doxycycline Hyclate 100 MG CAP PO (21:36)
[2024-08-26] MEDS: Hydrocortisone 1% CR 30 GM TUBE TP (21:36)
[2024-08-26 21:40] VITALS: PULSE 90; RESP 18; O2SAT 98
== END 2024-08-26 21:41 | disposition home or self-care (01) ==
LOC: ER 21:40
PROVIDERS: Emergency Provider Emergency Medicine
DX: R21 Rash and other nonspecific skin eruption (principal); E11.9 Type 2 diabetes mellitus without complications; F17.290 Nicotine dependence, other tobacco product, uncomplicated; Z86.14 Personal history of Methicillin resistant Staphylococcus aureus infection
CPT/HCPCS: 99283; J7512

== ENCOUNTER 2024-12-11 15:28 | Emergency (ER) | payer MEDICARE, SELFPAY ==
[2024-12-11 15:30] VITALS: BP 128/82; PULSE 137; RESP 16; TEMP 36.8; O2SAT 98
[2024-12-11 15:33] VITALS: BP 128/82; PULSE 137; RESP 16; TEMP 36.8; O2SAT 98
[2024-12-11 15:48] VITALS: PULSE 119
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
[2024-12-11] MEDS: Sulfameth/Trimeth DS, 2 TABS/BTL 1 TAB PO (16:00)
[2024-12-11] MEDS: Cephalexin 500 MG CAP (16:01)
== END 2024-12-11 15:48 | disposition home or self-care (01) ==
PROVIDERS: Emergency Provider Emergency Medicine
DX: N61.1 Abscess of the breast and nipple (principal); E11.9 Type 2 diabetes mellitus without complications; Z59.10 Inadequate housing, unspecified; Z59.41 Food insecurity; Z59.82 Transportation insecurity
CPT/HCPCS: 99284 ×2; 76642

== ENCOUNTER 2024-12-27 05:07 | Emergency (ER) | payer MEDICARE, SELFPAY ==
[2024-12-27] VITALS (12 sets, daily range): BP systolic 135–163; BP diastolic 89–100; PULSE 76–83; RESP 18; TEMP 35.8; O2SAT 96–100
--- NOTE | 2024-12-27 05:39 | W.ED.GENAD ---
Discharge Plan Disposition Patient Disposition: Home Condition: Improving Discharge Details Clinical Impression: Nausea, vomiting and diarrhea, Hyperglycemia due to diabetes mellitus Primary Care Provider: [facility],[facility] ED Provider: Kaila Olivier Home Meds and New Rx's Prescriptions: New prochlorperazine maleate [Compazine] 10 mg tablet 10 mg PO TID PRN (Reason: nausea and vomiting) Qty: 20 0RF magnesium 250 mg tablet 500 mg PO DAILY Qty: 6 0RF metformin 500 mg tablet 500 mg PO BID Qty: 60 0RF Rx Instructions: start 500 mg in the morning and if tolerating, add 500 mg in the morning and evening Continued alprazolam [Xanax] 1 mg tablet 1 mg PO QID clonazepam [Klonopin] 1 mg tablet 1 mg PO DAILY aripiprazole [Abilify] 10 mg tablet 10 mg PO DAILY citalopram 40 mg tablet 40 mg PO DAILY dextroamphetamine-amphetamine 20 mg tablet 20 mg PO TID Rx Instructions: administer doses at least 4-6 hours apart Discharge Instructions Instructions: Diabetes and diet, Nausea and Vomiting, Adult ED Additional Instructions: You were seen for vomiting and diarrhea with associated weakness. Overall your laboratory studies are reassuring though your blood sugar was quite elevated. You were treated with medication and fluids with improvement. You have been placed on a list for care management to help secure primary care in the area. You really need to work on getting blood sugars under control. I have sent a prescription for prochlorperazine to help with any recurrent nausea or vomiting. Rest and hydrate over the next couple of days. Return to ED for any persistent vomiting, syncope, abdominal pain, other concerns. Referrals: Care Management [Provider Group] Discharge Data Discharge Date/Time-TO BE ENTERED AT DEPARTURE: 12/27/24 09:02 HPI <Gentry Smith MD - Last Filed: 12/28/24 00:12> General Mode of arrival: ambulatory. Date/Time Provider Initiated Documentation: 12/27/24 05:10. Limitations to Documentation: no limitations. Information obtained by: patient, RN notes reviewed and old records reviewed. HPI Narrative: Patient presenting to ED with complaint of vomiting and diarrhea for days now. Patient was seen here on December 11 and diagnosed with a small breast abscess. She was started on antibiotics. Abscess documented as being too small to open. Patient reports that she has taken all the antibiotics and the lump that had been there does not seem to be there now and there is no pain. She reports that she was having vomiting and diarrhea a couple days before presenting here on that day. States that she has continued to have multiple episodes of vomiting and diarrhea every day since then. Denies having any abdominal pain. She is diabetic but does not take medications as she does not have a PCP in this area. She does take her psychiatric medications. She denies any fever, hematemesis, hematochezia. She does not feel that the antibiotics necessarily made things worse. She has just gotten to the point where she is having difficulty staying hydrated and now feels weak and dizzy. Related Data Home Medications ?Medication ?Instructions ?Recorded ?Confirmed alprazolam 1 mg tablet (Xanax) 1 mg PO QID 02/04/24 12/27/24 aripiprazole 10 mg tablet (Abilify) 10 mg PO DAILY 02/04/24 12/27/24 clonazepam 1 mg tablet (Klonopin) 1 mg PO DAILY 02/04/24 12/27/24 citalopram 40 mg tablet 40 mg PO DAILY 03/06/24 12/27/24 dextroamphetamine-amphetamine 20 20 mg PO TID 08/19/24 12/27/24 mg tablet magnesium 250 mg tablet 500 mg (2 x 250 mg) PO DAILY #6 12/27/24 tabs metformin 500 mg tablet 500 mg PO BID #60 tabs 12/27/24 prochlorperazine maleate 10 mg 10 mg PO TID PRN nausea and 12/27/24 tablet (Compazine) vomiting #20 tabs Previous Rx's ?Medication ?Instructions ?Recorded magnesium 250 mg tablet 500 mg (2 x 250 mg) PO DAILY #6 12/27/24 tabs metformin 500 mg tablet 500 mg PO BID #60 tabs 12/27/24 prochlorperazine maleate 10 mg 10 mg PO TID PRN nausea and 12/27/24 tablet (Compazine) vomiting #20 tabs Allergies Allergy/AdvReac Type Severity Reaction Status Date / Time No Known Allergies Allergy Verified 12/11/24 15:33 General Stated Complaint: Recheck CHANO: 3 Exam <Gentry Smith MD - Last Filed: 12/28/24 00:12> Narrative Exam Narrative: Const: Obese female in NAD. VS per triage. HEENT: NC/AT. Normal facial exam. Neck: Supple. Trachea midline. Lungs: Normal respiratory effort. Lungs are clear. Cor: RRR without murmur. Good radial pulses. GI: Soft/ND/NT. Neuro: A+O x 3. Normal speech, mentation, gait. Cranial nerves II - XII grossly intact. No gross motor or sensory deficit. Course <Gentry Smith MD - Last Filed: 12/28/24 00:12> Vital Signs Vital signs: Vital Signs Temperature 96.5 F L 12/27/24 05:16 Pulse 77 12/27/24 05:16 Respiratory Rate 18 12/27/24 05:16 Blood Pressure 163/100 H 12/27/24 05:16 Pulse Oximetry 99 12/27/24 05:16 Temperature 96.5 F L 12/27/24 05:16 Temperature Source Tympanic 12/27/24 05:16 Pulse 77 12/27/24 05:16 Respiratory Rate 18 12/27/24 05:16 Blood Pressure 163/100 H 12/27/24 05:16 Blood Pressure Position Sitting 12/27/24 05:16 Pulse Oximetry 99 12/27/24 05:16 Oxygen Delivery Method Room Air 12/27/24 05:16 Oxygen Flow Rate 0 12/27/24 05:16 Pain Level 0 12/27/24 05:16 Medical Decision Making <Gentry Smith MD - Last Filed: 12/28/24 00:12> Patient presenting to ED reporting persistent vomiting and diarrhea over the last couple of weeks. Now feeling weak and lightheaded and having difficulty tolerating fluids. Denies any type of abdominal pain. Was having symptoms prior to being on antibiotic. Does not take any medication for her diabetes. Her abdomen is benign on exam. Will place an IV to hydrate. Will check laboratory studies and treat nausea with prochlorperazine. Patient reports improvement after prochlorperazine and liter of fluid. Laboratory studies with minimally elevated white count of 11.6. Lactic acid is initially 3.5. Venous pH is normal. Blood sugar is quite elevated at 391. Kidney function is normal and there is no anion gap. Magnesium a little low at 1.6. Mild elevation of AST and ALT otherwise normal liver function. Patient does not have evidence of DKA based on labs. She is feeling much improved. Will plan a second liter of fluid and recheck lactate and sugar. Case signed over to NATHAN Olivier to follow-up on repeat labs and disposition. I have asked ammunition supervisor to place patient on care management list for help in obtaining primary care in this area. [facility]: Care accepted in transition from Dr. Smith at 8 AM pending repeat lactate fluids and p.o. challenge. Patient hypomagnesemic given magnesium for home supplementation repeat lactate shows decreased to 1.9 and patient is able to tolerate p.o. and feels significantly improved. Her vitals are stable and she is encouraged to follow-up with her doctor tomorrow. She exhibits no signs of infectious etiology of complaints. Return precautions reviewed and patient expressed understanding Lab Data Lab results reviewed: Yes I reviewed the patient's lab results. Lab results narrative: See MDM Quality:SDOH Health Related Social Needs: Health related social needs inadequate housing food insecurity transpo insecurity material hardship house/econ circumstance lonely/isolated Health related social needs details - <NATHAN Miller - Last Filed: 12/27/24 16:12> [facility]: Care accepted in transition from Dr. Smith at 8 AM pending repeat lactate fluids and p.o. challenge. Patient hypomagnesemic given magnesium for home supplementation repeat lactate shows decreased to 1.9 and patient is able to tolerate p.o. and feels significantly improved. Her vitals are stable and she is encouraged to follow-up with her doctor tomorrow. She exhibits no signs of infectious etiology of complaints. Return precautions reviewed and patient expressed understanding PFS <Gentry Smith MD - Last Filed: 12/28/24 00:12> All Active Problems (Updated 12/27/24 @ 07:44 by Gentry Smith MD) Hyperglycemia due to diabetes mellitus (Acute) Nausea, vomiting and diarrhea (Acute) Abscess of breast, right (Acute) Severe sepsis (Acute) Gram-positive bacteremia (Acute) Drug use disorder (Acute) Type 2 diabetes mellitus (Chronic) Orbital fracture (Acute) MRSA (methicillin resistant staph aureus) culture positive (Acute) Abscess of face (Acute) Influenza A (Acute) Laceration of foot, right (Acute) Medical History (Updated 12/27/24 @ 07:44 by Gentry Smith MD) Class 2 obesity Depression with anxiety ADHD (attention deficit hyperactivity disorder) Social History Smoking/Tobacco Use Status: Current-Occasional Tobacco Type: e-cigarettes Smoking risk assessment performed?: Yes Alcohol Intake: never Drug use: Daily Substance use type: marijuana Housing: house Do you feel safe at home: Yes Do you feel safe in your relationship?: Yes
[2024-12-27] MEDS: Prochlorperazine 10 MG/2 ML VIAL IVP (06:13)
[2024-12-27] MEDS: Normal Saline 1,000 ML 1000 ML IV ×2 (06:13→07:26)
[2024-12-27 06:17] LABS: BE (Venous) -2 mmol/L (-2-3); HCO3 (Venous) 24 mmol/L (23-28); O2 Sat (Venous) 97 %; TCO2 (Venous) 22 mmol/L (24-29); pCO2 (Venous) 44 mmHg (41-51); pO2 (Venous) 90 mmHg
[2024-12-27 06:22] LABS: Abs Immature Grans 0.04 10^3/uL (0.0-0.06); HCT 39.5 % (36.0-46.0); HGB 13.2 g/dL (11.2-15.7); Immature Grans % 0.3 %; MCH 28.9 pg (27.0-33.0); MCHC 33.4 % (32.0-36.0); MCV 86 fL (80-95); MPV 10.2 fL (8.0-11.0); Platelet Count 268 10^3/uL (130-400); RBC 4.57 10^6/uL (3.93-5.22); RDW 12.1 % (11.7-14.6); RDW-SD 38.3 fL; WBC 11.61 10^3/uL (4.4-10.8)
[2024-12-27 06:33] LABS: Magnesium 1.6 mg/dL (1.8-2.4)
[2024-12-27 06:35] LABS: HCG Qual (Serum) Negative
[2024-12-27 06:38] LABS: ALT 72 U/L (14-59); AST 39 U/L (15-37); Albumin 3.8 g/dL (3.4-5.0); Alkaline Phosphatase 87 U/L (46-116); Anion Gap 10.4 mmol/L (3-11); BUN 14 mg/dL (7-18); Bilirubin, Total 0.2 mg/dL (0.2-1.0); CO2 26.6 mmol/L (21.0-32.0); Calcium 9.1 mg/dL (8.5-10.1); Chloride 97 mmol/L (98-107); Estimated GFR 72.13 (mL/min/1.73m2); Glucose 391 mg/dL (74-106); Potassium 4.0 mmol/L (3.5-5.1); Sodium 134 mmol/L (136-145); Total Protein 7.4 g/dL (6.4-8.2)
[2024-12-27 09:03] LABS: Lab Add On Test DONE
[2024-12-27 09:20] LABS: Hemoglobin A1C 9.4 % (<5.7)
== END 2024-12-27 09:02 | disposition home or self-care (01) ==
PROVIDERS: Emergency Medicine; Emergency Provider Physician Assistant
DX: R11.2 Nausea with vomiting, unspecified (principal); R19.7 Diarrhea, unspecified; E11.65 Type 2 diabetes mellitus with hyperglycemia; Z59.41 Food insecurity; Z59.811 Housing instability, housed, with risk of homelessness; Z59.87 Material hardship due to limited financial resources, not elsewhere classified
CPT/HCPCS: 36415; 80053; 82805; 96361; 96374; 99284; 83036; 83605; 83735; 84703; 85025; J0780